=== PATIENT | male | born 1955 | race Caucasian/White ===

== ENCOUNTER 2017-06-22 14:12 | Emergency (ER) | payer OTHER ==
[~2017-06-22] VITALS: Ht 177.8 cm; Wt 70.3 kg
[~2017-06-22 14:12] MED LIST: ACET500 PO; Aspirin EC325 MG PO; BISA10S PO; CRUTCH2 XX; LISINOPRIL; METOPROLOL; Norco 5-325 Ta1 EACH PO; ROXICODONE5 MG PO; Wheelchair1 EACH XX
[2017-06-22 14:54] LABS: Hematocrit 34.4 % (37.0-53.0); Hemoglobin 12.1 g/dL (13.5-17.5); Mean Corpuscular HGB 39.3 pg (26.0-34.0); Mean Corpuscular HGB Conc 35.2 g/dL (31.5-36.5); Mean Corpuscular Volume 112 fL (80-100); Mean Platelet Volume 11.6 fL (9.1-12.4); Platelet Count 58 K/mm3 (150-400); RDW Coefficient Variation 13.4 % (11.7-14.2); RDW Standard Deviation 54.5 fL (35.1-46.3); Red Blood Cell Count 3.08 M/mm3 (4.30-5.90); White Blood Cell Count 8.61 K/mm3 (4.00-11.30)
[2017-06-22 15:06] LABS: Alanine Aminotransfer (ALT/SGP 26 U/L (12-78); Albumin, Blood 3.6 g/dL (3.4-5.0); Albumin/Globulin Ratio 0.9 (0.8-1.8); Alk Phos 152 U/L (50-136); Anion Gap 18 mmol/L (6-16); Aspartate Aminotrans (AST/SGOT 67 U/L (12-37); Bilirubin, Total 2.6 mg/dL (0.1-1.0); Blood Urea Nitrogen 10 mg/dL (8-24); CO2, Blood 23 mmol/L (21-32); Calcium, Blood 7.7 mg/dL (8.5-10.1); Chloride, Blood 93 mmol/L (98-108); Creatinine, Blood 0.63 mg/dL (0.60-1.20); Globulin, Blood 3.9 g/dL (2.2-4.0); Glomerular Filtration Rate >60 (60-); Glucose, Blood 114 mg/dL (70-99); Potassium, Blood 2.4 mmol/L (3.5-5.5); Sodium, Blood 134 mmol/L (136-145); Total Protein, Blood 7.5 g/dL (6.4-8.2)
[2017-06-22 15:28] LABS: BASOPHILS PERCENT MAN 0 % (0-2); EOSINOPHILS PERCENT MAN 0 % (0-6); LYMPHOCYTES ABSOLUTE MAN 1.46 K/mm3 (0.84-5.20); LYMPHOCYTES PERCENT MAN 17 % (21-46); MONOCYTES ABSOLUTE MAN 0.34 K/mm3 (0.16-1.47); MONOCYTES PERCENT MAN 4 % (4-13); SEG NEUTROPHILS PERCENT MAN 79 % (41-73); TOTAL CELLS COUNTED 100
[2017-06-22] MEDS ORDERED: K-Dur20 MEQ PO (16:32)
[2017-06-22] MEDS ORDERED: CHLO25 PO (16:32)
[2018-04-28] MEDS ORDERED: POTCHL20ER PO (00:30)
== END 2017-06-22 18:21 | disposition home or self-care (01) ==
LOC: ER 14:12
PROVIDERS: Emergency Medicine
DX: E87.6 Hypokalemia (principal); I10 Essential (primary) hypertension; F17.200 Nicotine dependence, unspecified, uncomplicated
CPT/HCPCS: 70450; 80053; 85025; 93005; 93010; 96365; 96366; 99284; J3480; J7030

== ENCOUNTER 2017-07-18 22:55 | Inpatient (IN) | payer OTHER ==
[~2017-07-18] VITALS: Ht 177.8 cm; Wt 65.0 kg
[~2017-07-18 22:55] MED LIST changes: +CHLO25 PO; +K-Dur20 MEQ PO
[2017-07-18 23:34] LABS: BASOPHILS ABSOLUTE AUTO 0.03 K/mm3 (0.00-0.23); BASOPHILS PERCENT AUTO 0 % (0-2); Hematocrit 31.2 % (37.0-53.0); Hemoglobin 11.2 g/dL (13.5-17.5); LYMPHOCYTES ABSOLUTE AUTO 0.14 K/mm3 (0.84-5.20); LYMPHOCYTES PERCENT AUTO 1 % (21-46); MONOCYTES ABSOLUTE AUTO 0.61 K/mm3 (0.16-1.47); MONOCYTES PERCENT AUTO 4 % (4-13); Mean Corpuscular HGB 37.7 pg (26.0-34.0); Mean Corpuscular HGB Conc 35.9 g/dL (31.5-36.5); Mean Corpuscular Volume 105 fL (80-100); RDW Coefficient Variation 12.8 % (11.7-14.2); Red Blood Cell Count 2.97 M/mm3 (4.30-5.90); White Blood Cell Count 17.45 K/mm3 (4.00-11.30)
[2017-07-18 23:36] LABS: EOSINOPHILS PERCENT AUTO 0 % (0-6); IMMATURE GRAN ABSOLUTE AUTO 0.26 K/mm3 (0.00-0.10); IMMATURE GRAN PERCENT AUTO 2 % (0-1); NEUTROPHILS ABSOLUTE AUTO 16.41 K/mm3 (1.96-9.15); NEUTROPHILS PERCENT AUTO 94 % (41-73)
[2017-07-18 23:38] LABS: Platelet Count 28 K/mm3 (150-400)
[2017-07-18 23:52] LABS: Alanine Aminotransfer (ALT/SGP 39 U/L (12-78); Albumin, Blood 2.4 g/dL (3.4-5.0); Albumin/Globulin Ratio 0.6 (0.8-1.8); Alk Phos 85 U/L (50-136); Anion Gap 19 mmol/L (6-16); Aspartate Aminotrans (AST/SGOT 168 U/L (12-37); Bilirubin, Total 1.2 mg/dL (0.1-1.0); Blood Urea Nitrogen 37 mg/dL (8-24); Bun/Creatinine Ratio 34.6 (12.0-20.0); CO2, Blood 19 mmol/L (21-32); Calcium, Blood 7.3 mg/dL (8.5-10.1); Chloride, Blood 88 mmol/L (98-108); Creatinine, Blood 1.07 mg/dL (0.60-1.20); Ethanol (Alcohol), Blood, Med <3 mg/dL; Globulin, Blood 4.2 g/dL (2.2-4.0); Glomerular Filtration Rate >60 (60-); Glucose, Blood 122 mg/dL (70-99); Potassium, Blood 2.7 mmol/L (3.5-5.5); Sodium, Blood 126 mmol/L (136-145); Total Protein, Blood 6.6 g/dL (6.4-8.2); Troponin I 0.251 ng/mL (0.000-0.040)
[2017-07-18 23:58] LABS: Influenza A Negative (NEGATIVE); Influenza B Negative (NEGATIVE)
[2017-07-19 00:24] LABS: Magnesium, Blood 0.9 mg/dL (1.6-2.4)
[2017-07-19 00:27] LABS: Creatine Kinase MB 1.6 ng/mL (0.0-3.6); Creatine Kinase MB Index 0.1 (0.0-4.0)
[2017-07-19 00:35] LABS: Source, Urine Catheter
[2017-07-19 00:37] LABS: Appearance, Urine Cloudy (Clear); Bilirubin, Urine Neg (Neg); Blood, Urine 5+ (Neg); Color, Urine Yellow (P-Yellow); Glucose Qualitative, Urine Neg (Neg); Ketones, Urine 3+ (Neg); Leukocyte Esterase, Urine 3+ (Neg); Nitrite, Urine Pos (Neg); Protein, Urine 3+ (Neg); Urobilinogen, Urine NORM (Normal)
[2017-07-19 00:43] LABS: Red Blood Cells, Urine 0-2 /hpf (0-2); White Blood Cells, Urine 25-50 /hpf (0-5)
[2017-07-19 00:44] LABS: Amorphous Light (0-Heavy); Bacteria Many /hpf; Squamous Epithelial Cells Not Seen /hpf (Few)
[2017-07-19 01:03] LABS: U Amphetamine Screen Not Detected; U Barbituate Screen Not Detected; U Benzodiazapine Screen DETECTED; U Buprenorphine Screen Not Detected; U Cannabinoids Screen Not Detected; U Cocaine Screen Not Detected; U Methadone Screen Not Detected; U Methamphetamine Screen Not Detected; U Opiates Screen Not Detected; U Oxycodone Screen Not Detected; U Phencyclidine Screen Not Detected; U Propoxyphene Screen Not Detected
[2017-07-19] MEDS ORDERED: POTCHL20ER PO (02:37)
[2017-07-19 06:45] LABS: BASOPHILS ABSOLUTE AUTO 0.02 K/mm3 (0.00-0.23); BASOPHILS PERCENT AUTO 0 % (0-2); Hematocrit 32.8 % (37.0-53.0); Hemoglobin 11.5 g/dL (13.5-17.5); LYMPHOCYTES ABSOLUTE AUTO 0.14 K/mm3 (0.84-5.20); LYMPHOCYTES PERCENT AUTO 1 % (21-46); MONOCYTES ABSOLUTE AUTO 0.42 K/mm3 (0.16-1.47); MONOCYTES PERCENT AUTO 4 % (4-13); Mean Corpuscular HGB 38.3 pg (26.0-34.0); Mean Corpuscular HGB Conc 35.1 g/dL (31.5-36.5); Mean Platelet Volume 12.7 fL (9.1-12.4); RDW Coefficient Variation 13.1 % (11.7-14.2); RDW Standard Deviation 52.6 fL (35.1-46.3); White Blood Cell Count 11.96 K/mm3 (4.00-11.30)
[2017-07-19 06:48] LABS: Mean Corpuscular Volume 109 fL (80-100)
[2017-07-19 06:49] LABS: EOSINOPHILS PERCENT AUTO 0 % (0-6); IMMATURE GRAN ABSOLUTE AUTO 0.13 K/mm3 (0.00-0.10); IMMATURE GRAN PERCENT AUTO 1 % (0-1); NEUTROPHILS ABSOLUTE AUTO 11.25 K/mm3 (1.96-9.15); NEUTROPHILS PERCENT AUTO 94 % (41-73)
[2017-07-19 06:50] LABS: Platelet Count 22 K/mm3 (150-400)
[2017-07-19 07:09] LABS: BAND PERCENT MAN 12 % (0-8); BASOPHILS PERCENT MAN 0 % (0-2); EOSINOPHILS PERCENT MAN 0 % (0-6); LYMPHOCYTES ABSOLUTE MAN 0.59 K/mm3 (0.84-5.20); LYMPHOCYTES PERCENT MAN 5 % (21-46); MONOCYTES ABSOLUTE MAN 0.23 K/mm3 (0.16-1.47); MONOCYTES PERCENT MAN 2 % (4-13); NEUTROPHILS ABSOLUTE MAN 11.12 K/mm3 (1.96-9.15); SEG NEUTROPHILS PERCENT MAN 81 % (41-73); TOTAL CELLS COUNTED 100
[2017-07-19 07:24] LABS: Alanine Aminotransfer (ALT/SGP 34 U/L (12-78); Albumin, Blood 2.2 g/dL (3.4-5.0); Albumin/Globulin Ratio 0.6 (0.8-1.8); Alk Phos 72 U/L (50-136); Anion Gap 9 mmol/L (6-16); Aspartate Aminotrans (AST/SGOT 141 U/L (12-37); Blood Urea Nitrogen 30 mg/dL (8-24); Bun/Creatinine Ratio 34.8 (12.0-20.0); CO2, Blood 20 mmol/L (21-32); Calcium, Blood 6.8 mg/dL (8.5-10.1); Chloride, Blood 99 mmol/L (98-108); Creatinine, Blood 0.86 mg/dL (0.60-1.20); Globulin, Blood 3.7 g/dL (2.2-4.0); Glomerular Filtration Rate >60 (60-); Glucose, Blood 101 mg/dL (70-99); Sodium, Blood 128 mmol/L (136-145); Total Protein, Blood 5.9 g/dL (6.4-8.2)
[2017-07-19 07:49] LABS: Magnesium, Blood 1.6 mg/dL (1.6-2.4); Phosphorus, Blood 1.5 mg/dL (2.5-4.9)
[2017-07-19 08:04] LABS: Potassium, Blood 6.6 mmol/L (3.5-5.5)
[2017-07-19 18:34] LABS: Hematocrit 25.3 % (37.0-53.0); Hemoglobin 9.3 g/dL (13.5-17.5)
[2017-07-19 18:49] LABS: Free Thyroxine 0.85 ng/dL (0.70-1.60); Magnesium, Blood 1.5 mg/dL (1.6-2.4)
[2017-07-19 18:50] LABS: Thyroid Stimulating Hormone 1.78 uIU/mL (0.360-4.800)
[2017-07-19 18:52] LABS: Phosphorus, Blood 1.7 mg/dL (2.5-4.9); Potassium, Blood 2.5 mmol/L (3.5-5.5)
[2017-07-20 00:32] LABS: Hematocrit 25.7 % (37.0-53.0); Hemoglobin 8.7 g/dL (13.5-17.5)
[2017-07-20 05:03] LABS: Hematocrit 28.7 % (37.0-53.0); Hemoglobin 9.6 g/dL (13.5-17.5); Mean Corpuscular HGB 37.6 pg (26.0-34.0); Mean Corpuscular HGB Conc 33.4 g/dL (31.5-36.5); RDW Coefficient Variation 13.2 % (11.7-14.2); RDW Standard Deviation 54.7 fL (35.1-46.3); Red Blood Cell Count 2.55 M/mm3 (4.30-5.90); White Blood Cell Count 4.96 K/mm3 (4.00-11.30)
[2017-07-20 05:07] LABS: PCO2 Arterial 29.3 mmHg (35-45); PO2 Arterial 85.3 mmHg (80-100); pH Blood Arterial 7.38 (7.35-7.45)
[2017-07-20 05:09] LABS: Mean Corpuscular Volume 113 fL (80-100); Mean Platelet Volume 13.8 fL (9.1-12.4)
[2017-07-20 05:11] LABS: Platelet Count 15 K/mm3 (150-400)
[2017-07-20 05:16] LABS: International Normalized Ratio 1.29; Prothrombin Time Results 13.5 Sec (9.7-11.5)
[2017-07-20 05:24] LABS: Alanine Aminotransfer (ALT/SGP 35 U/L (12-78); Albumin, Blood 1.5 g/dL (3.4-5.0); Albumin/Globulin Ratio 0.5 (0.8-1.8); Anion Gap 10 mmol/L (6-16); Aspartate Aminotrans (AST/SGOT 130 U/L (12-37); Bilirubin, Total 0.8 mg/dL (0.1-1.0); Blood Urea Nitrogen 24 mg/dL (8-24); Bun/Creatinine Ratio 31.6 (12.0-20.0); CO2, Blood 19 mmol/L (21-32); Calcium, Blood 6.5 mg/dL (8.5-10.1); Chloride, Blood 106 mmol/L (98-108); Creatinine, Blood 0.76 mg/dL (0.60-1.20); Globulin, Blood 3.3 g/dL (2.2-4.0); Glomerular Filtration Rate >60 (60-); Glucose, Blood 108 mg/dL (70-99); Magnesium, Blood 1.8 mg/dL (1.6-2.4); Phosphorus, Blood 2.5 mg/dL (2.5-4.9); Potassium, Blood 2.7 mmol/L (3.5-5.5); Sodium, Blood 135 mmol/L (136-145); Total Protein, Blood 4.8 g/dL (6.4-8.2)
[2017-07-20 05:26] LABS: Alk Phos 52 U/L (50-136); CPK Creatine Kinase 430 U/L (39-308)
[2017-07-20 05:40] LABS: BAND PERCENT MAN 14 % (0-8); BASOPHILS PERCENT MAN 0 % (0-2); EOSINOPHILS PERCENT MAN 0 % (0-6); LYMPHOCYTES ABSOLUTE MAN 0.14 K/mm3 (0.84-5.20); LYMPHOCYTES PERCENT MAN 3 % (21-46); MONOCYTES ABSOLUTE MAN 0.19 K/mm3 (0.16-1.47); MONOCYTES PERCENT MAN 4 % (4-13); NEUTROPHILS ABSOLUTE MAN 4.61 K/mm3 (1.96-9.15); SEG NEUTROPHILS PERCENT MAN 79 % (41-73); TOTAL CELLS COUNTED 100
[2017-07-20 06:07] LABS: Stool Occult Blood Guaiac 1 Pos (Neg)
[2017-07-21 04:20] LABS: BASOPHILS PERCENT AUTO 0 % (0-2); Hematocrit 29.2 % (37.0-53.0); Hemoglobin 10.1 g/dL (13.5-17.5); Mean Corpuscular HGB 38.1 pg (26.0-34.0); Mean Corpuscular HGB Conc 34.6 g/dL (31.5-36.5); RDW Coefficient Variation 13.2 % (11.7-14.2); Red Blood Cell Count 2.65 M/mm3 (4.30-5.90); White Blood Cell Count 3.92 K/mm3 (4.00-11.30)
[2017-07-21 04:27] LABS: EOSINOPHILS PERCENT AUTO 0 % (0-6); IMMATURE GRAN ABSOLUTE AUTO 0.04 K/mm3 (0.00-0.10); IMMATURE GRAN PERCENT AUTO 1 % (0-1); LYMPHOCYTES ABSOLUTE AUTO 0.13 K/mm3 (0.84-5.20); LYMPHOCYTES PERCENT AUTO 3 % (21-46); MONOCYTES ABSOLUTE AUTO 0.38 K/mm3 (0.16-1.47); MONOCYTES PERCENT AUTO 10 % (4-13); Mean Corpuscular Volume 110 fL (80-100); Mean Platelet Volume 13.1 fL (9.1-12.4); NEUTROPHILS ABSOLUTE AUTO 3.37 K/mm3 (1.96-9.15); NEUTROPHILS PERCENT AUTO 86 % (41-73); Platelet Count 18 K/mm3 (150-400)
[2017-07-21 04:45] LABS: Alanine Aminotransfer (ALT/SGP 41 U/L (12-78); Albumin, Blood 1.8 g/dL (3.4-5.0); Albumin/Globulin Ratio 0.5 (0.8-1.8); Alk Phos 68 U/L (50-136); Anion Gap 10 mmol/L (6-16); Aspartate Aminotrans (AST/SGOT 103 U/L (12-37); Bilirubin, Total 1.3 mg/dL (0.1-1.0); Blood Urea Nitrogen 18 mg/dL (8-24); Bun/Creatinine Ratio 19.8 (12.0-20.0); CO2, Blood 19 mmol/L (21-32); Calcium, Blood 7.4 mg/dL (8.5-10.1); Chloride, Blood 108 mmol/L (98-108); Creatinine, Blood 0.91 mg/dL (0.60-1.20); Globulin, Blood 3.7 g/dL (2.2-4.0); Glomerular Filtration Rate >60 (60-); Glucose, Blood 91 mg/dL (70-99); Magnesium, Blood 1.5 mg/dL (1.6-2.4); Phosphorus, Blood 1.2 mg/dL (2.5-4.9); Potassium, Blood 2.9 mmol/L (3.5-5.5); Sodium, Blood 137 mmol/L (136-145); Total Protein, Blood 5.5 g/dL (6.4-8.2)
[2017-07-21 10:51] LABS: Anion Gap 11 mmol/L (6-16); Blood Urea Nitrogen 19 mg/dL (8-24); Bun/Creatinine Ratio 23.5 (12.0-20.0); CO2, Blood 18 mmol/L (21-32); Calcium, Blood 7.5 mg/dL (8.5-10.1); Chloride, Blood 109 mmol/L (98-108); Creatinine, Blood 0.81 mg/dL (0.60-1.20); Glomerular Filtration Rate >60 (60-); Glucose, Blood 84 mg/dL (70-99); Magnesium, Blood 1.7 mg/dL (1.6-2.4); Phosphorus, Blood 2.2 mg/dL (2.5-4.9); Potassium, Blood 3.3 mmol/L (3.5-5.5); Sodium, Blood 138 mmol/L (136-145)
[2017-07-21 21:49] LABS: Albumin, Blood 1.7 g/dL (3.4-5.0); Anion Gap 12 mmol/L (6-16); Blood Urea Nitrogen 18 mg/dL (8-24); Bun/Creatinine Ratio 19.1 (12.0-20.0); CO2, Blood 20 mmol/L (21-32); Calcium, Blood 7.2 mg/dL (8.5-10.1); Chloride, Blood 110 mmol/L (98-108); Creatinine, Blood 0.94 mg/dL (0.60-1.20); Glomerular Filtration Rate >60 (60-); Glucose, Blood 113 mg/dL (70-99); Magnesium, Blood 1.4 mg/dL (1.6-2.4); Phosphorus, Blood 3.7 mg/dL (2.5-4.9); Sodium, Blood 142 mmol/L (136-145)
[2017-07-22 05:42] LABS: Hematocrit 27.1 % (37.0-53.0); Hemoglobin 9.5 g/dL (13.5-17.5); Mean Corpuscular HGB Conc 35.1 g/dL (31.5-36.5); Mean Corpuscular Volume 108 fL (80-100); RDW Coefficient Variation 13.5 % (11.7-14.2); RDW Standard Deviation 54.1 fL (35.1-46.3); White Blood Cell Count 4.74 K/mm3 (4.00-11.30)
[2017-07-22 05:54] LABS: Mean Platelet Volume 13.2 fL (9.1-12.4); Platelet Count 28 K/mm3 (150-400)
[2017-07-22 06:00] LABS: Anion Gap 10 mmol/L (6-16); Blood Urea Nitrogen 19 mg/dL (8-24); Bun/Creatinine Ratio 21.6 (12.0-20.0); CO2, Blood 19 mmol/L (21-32); Calcium, Blood 7.4 mg/dL (8.5-10.1); Chloride, Blood 112 mmol/L (98-108); Creatinine, Blood 0.88 mg/dL (0.60-1.20); Glomerular Filtration Rate >60 (60-); Glucose, Blood 126 mg/dL (70-99); Magnesium, Blood 2.4 mg/dL (1.6-2.4); Phosphorus, Blood 2.3 mg/dL (2.5-4.9); Sodium, Blood 141 mmol/L (136-145)
[2017-07-22 18:11] LABS: Albumin, Blood 1.8 g/dL (3.4-5.0); Anion Gap 13 mmol/L (6-16); Blood Urea Nitrogen 17 mg/dL (8-24); Bun/Creatinine Ratio 18.9 (12.0-20.0); CO2, Blood 18 mmol/L (21-32); Calcium, Blood 7.5 mg/dL (8.5-10.1); Chloride, Blood 114 mmol/L (98-108); Glomerular Filtration Rate >60 (60-); Glucose, Blood 113 mg/dL (70-99); Magnesium, Blood 1.9 mg/dL (1.6-2.4); Phosphorus, Blood 3.5 mg/dL (2.5-4.9); Potassium, Blood 3.2 mmol/L (3.5-5.5); Sodium, Blood 145 mmol/L (136-145)
[2017-07-23 04:34] LABS: Hematocrit 25.8 % (37.0-53.0); Hemoglobin 8.8 g/dL (13.5-17.5); Mean Corpuscular HGB 37.4 pg (26.0-34.0); Mean Corpuscular HGB Conc 34.1 g/dL (31.5-36.5); Mean Corpuscular Volume 110 fL (80-100); Mean Platelet Volume 12.2 fL (9.1-12.4); RDW Coefficient Variation 14.3 % (11.7-14.2); RDW Standard Deviation 57.8 fL (35.1-46.3); Red Blood Cell Count 2.35 M/mm3 (4.30-5.90); White Blood Cell Count 5.18 K/mm3 (4.00-11.30)
[2017-07-23 04:45] LABS: Albumin, Blood 1.8 g/dL (3.4-5.0); Anion Gap 10 mmol/L (6-16); Blood Urea Nitrogen 15 mg/dL (8-24); Bun/Creatinine Ratio 18.7 (12.0-20.0); CO2, Blood 21 mmol/L (21-32); Calcium, Blood 7.3 mg/dL (8.5-10.1); Chloride, Blood 116 mmol/L (98-108); Glomerular Filtration Rate >60 (60-); Glucose, Blood 102 mg/dL (70-99); Phosphorus, Blood 2.7 mg/dL (2.5-4.9); Potassium, Blood 3.5 mmol/L (3.5-5.5); Sodium, Blood 147 mmol/L (136-145)
[2017-07-23 04:59] LABS: Platelet Count 42 K/mm3 (150-400)
[2017-07-24 04:22] LABS: Hematocrit 24.3 % (37.0-53.0); Hemoglobin 8.3 g/dL (13.5-17.5)
[2017-07-24 04:43] LABS: Anion Gap 9 mmol/L (6-16); Blood Urea Nitrogen 11 mg/dL (8-24); CO2, Blood 23 mmol/L (21-32); Calcium, Blood 7.1 mg/dL (8.5-10.1); Chloride, Blood 115 mmol/L (98-108); Creatinine, Blood 0.79 mg/dL (0.60-1.20); Glomerular Filtration Rate >60 (60-); Glucose, Blood 103 mg/dL (70-99); Potassium, Blood 2.9 mmol/L (3.5-5.5); Sodium, Blood 147 mmol/L (136-145)
[2017-07-25 04:49] LABS: Hematocrit 26.4 % (37.0-53.0); Hemoglobin 8.9 g/dL (13.5-17.5)
[2017-07-25 05:17] LABS: Anion Gap 7 mmol/L (6-16); Blood Urea Nitrogen 10 mg/dL (8-24); Bun/Creatinine Ratio 14.3 (12.0-20.0); CO2, Blood 25 mmol/L (21-32); Calcium, Blood 7.3 mg/dL (8.5-10.1); Chloride, Blood 113 mmol/L (98-108); Glomerular Filtration Rate >60 (60-); Glucose, Blood 167 mg/dL (70-99); Potassium, Blood 2.9 mmol/L (3.5-5.5); Sodium, Blood 145 mmol/L (136-145)
[2017-07-26 04:02] LABS: Hematocrit 22.5 % (37.0-53.0); Hemoglobin 7.6 g/dL (13.5-17.5); Mean Corpuscular HGB 37.8 pg (26.0-34.0); Mean Corpuscular HGB Conc 33.8 g/dL (31.5-36.5); Mean Corpuscular Volume 112 fL (80-100); Mean Platelet Volume 11.3 fL (9.1-12.4); Platelet Count 89 K/mm3 (150-400); RDW Coefficient Variation 14.3 % (11.7-14.2); RDW Standard Deviation 58.1 fL (35.1-46.3); Red Blood Cell Count 2.01 M/mm3 (4.30-5.90); White Blood Cell Count 9.68 K/mm3 (4.00-11.30)
[2017-07-26 04:22] LABS: Albumin, Blood 1.7 g/dL (3.4-5.0); Anion Gap 6 mmol/L (6-16); Blood Urea Nitrogen 10 mg/dL (8-24); Bun/Creatinine Ratio 15.4 (12.0-20.0); CO2, Blood 25 mmol/L (21-32); Calcium, Blood 6.5 mg/dL (8.5-10.1); Chloride, Blood 108 mmol/L (98-108); Creatinine, Blood 0.65 mg/dL (0.60-1.20); Glomerular Filtration Rate >60 (60-); Glucose, Blood 109 mg/dL (70-99); Phosphorus, Blood 1.9 mg/dL (2.5-4.9); Potassium, Blood 2.9 mmol/L (3.5-5.5); Sodium, Blood 139 mmol/L (136-145)
[2017-07-26 09:39] LABS: Hematocrit 22.6 % (37.0-53.0); Hemoglobin 7.7 g/dL (13.5-17.5); Mean Corpuscular HGB 37.7 pg (26.0-34.0); Mean Corpuscular HGB Conc 34.1 g/dL (31.5-36.5); Mean Corpuscular Volume 111 fL (80-100); Mean Platelet Volume 11.5 fL (9.1-12.4); Platelet Count 90 K/mm3 (150-400); RDW Coefficient Variation 14.4 % (11.7-14.2); RDW Standard Deviation 58.5 fL (35.1-46.3); Red Blood Cell Count 2.04 M/mm3 (4.30-5.90); White Blood Cell Count 10.02 K/mm3 (4.00-11.30)
[2017-07-27 04:15] LABS: Hematocrit 22.3 % (37.0-53.0); Hemoglobin 7.6 g/dL (13.5-17.5); Mean Corpuscular HGB 37.8 pg (26.0-34.0); Mean Corpuscular HGB Conc 34.1 g/dL (31.5-36.5); Mean Corpuscular Volume 111 fL (80-100); Platelet Count 101 K/mm3 (150-400); RDW Standard Deviation 57.4 fL (35.1-46.3); Red Blood Cell Count 2.01 M/mm3 (4.30-5.90)
[2017-07-27 04:35] LABS: Anion Gap 8 mmol/L (6-16); Blood Urea Nitrogen 8 mg/dL (8-24); Bun/Creatinine Ratio 12.1 (12.0-20.0); CO2, Blood 24 mmol/L (21-32); Calcium, Blood 6.5 mg/dL (8.5-10.1); Chloride, Blood 106 mmol/L (98-108); Creatinine, Blood 0.66 mg/dL (0.60-1.20); Glomerular Filtration Rate >60 (60-); Glucose, Blood 93 mg/dL (70-99); Magnesium, Blood 1.2 mg/dL (1.6-2.4); Sodium, Blood 138 mmol/L (136-145)
[2017-07-28 04:30] LABS: Hematocrit 20.6 % (37.0-53.0); Hemoglobin 7.2 g/dL (13.5-17.5); Mean Corpuscular HGB 38.1 pg (26.0-34.0); Mean Corpuscular Volume 109 fL (80-100); Mean Platelet Volume 11.8 fL (9.1-12.4); Platelet Count 89 K/mm3 (150-400); RDW Coefficient Variation 13.7 % (11.7-14.2); RDW Standard Deviation 54.5 fL (35.1-46.3); Red Blood Cell Count 1.89 M/mm3 (4.30-5.90); White Blood Cell Count 11.19 K/mm3 (4.00-11.30)
[2017-07-28 04:48] LABS: Anion Gap 8 mmol/L (6-16); Blood Urea Nitrogen 6 mg/dL (8-24); Bun/Creatinine Ratio 8.7 (12.0-20.0); CO2, Blood 24 mmol/L (21-32); Calcium, Blood 6.6 mg/dL (8.5-10.1); Chloride, Blood 104 mmol/L (98-108); Creatinine, Blood 0.69 mg/dL (0.60-1.20); Glomerular Filtration Rate >60 (60-); Glucose, Blood 114 mg/dL (70-99); Potassium, Blood 3.1 mmol/L (3.5-5.5); Sodium, Blood 136 mmol/L (136-145)
[2018-04-28] MEDS ORDERED: POTCHL20ER PO (00:30)
== END 2017-07-28 11:30 | DRG 871 ==
LOC: ER 22:55 → ICUE 07-19 00:06 → PCU 07-19 00:06 → ICUW 07-19 00:06 → ICUE 07-19 01:35 → PCU 07-22 18:04
PROVIDERS: Emergency Medicine; Family Medicine; Internal Medicine; Internal Medicine Critical Care Medicine
PROC: 3E0234Z Introduction of Serum, Toxoid and Vaccine into Muscle, Percutaneous Approach (ICD-10-PCS; principal; 2017-07-19)
DX: A41.51 Sepsis due to Escherichia coli [E. coli] (principal); R65.21 Severe sepsis with septic shock; G93.41 Metabolic encephalopathy; E87.2 Acidosis; E44.0 Moderate protein-calorie malnutrition; E83.39 Other disorders of phosphorus metabolism; D62 Acute posthemorrhagic anemia; D69.6 Thrombocytopenia, unspecified; M62.82 Rhabdomyolysis; E87.1 Hypo-osmolality and hyponatremia; N39.0 Urinary tract infection, site not specified; F10.239 Alcohol dependence with withdrawal, unspecified; Z23 Encounter for immunization; E83.42 Hypomagnesemia; E87.6 Hypokalemia; R77.8 Other specified abnormalities of plasma proteins; F17.210 Nicotine dependence, cigarettes, uncomplicated; I10 Essential (primary) hypertension; E86.0 Dehydration; R19.5 Other fecal abnormalities; Z68.20 Body mass index [BMI] 20.0-20.9, adult
CPT/HCPCS: 36415; 36600; 51702; 71045; 80048; 80053; 80069; 81001; 82140; 82272; 82330; 82533; 82550; 82553; 82803; 83605; 83690; 83735; 84100; 84132; 84145; 84439; 84443; 84484; 85007; 85014; 85018; 85025; 85027; 85610; 85730; 87040; 87077; 87086; 87186; 87493; 87804; 92526; 92610; 93005; 93010; 93306; 94640; 94760; 96361; 96365; 97110; 97161; 97166; 97530; 97535; 99285; C9113; G0480; G8978; G8979; G8987; G8988; G8996; G8997; J0610; J0696; J1940; J1956; J2001; J2060; J2543; J3411; J3475; J3480; J7030; J7040; J7042; J7050; Q2038

== ENCOUNTER 2018-08-04 08:30 | Inpatient (IN) | payer OTHER ==
[~2018-08-04] VITALS: Ht 180.3 cm; Wt 54.4 kg
[~2018-08-04 08:30] MED LIST changes: +POTCHL20ER PO
[2018-08-04 09:20] LABS: BASOPHILS ABSOLUTE AUTO 0.01 K/mm3 (0.00-0.23); BASOPHILS PERCENT AUTO 0 % (0-2); EOSINOPHILS ABSOLUTE AUTO 0.01 K/mm3 (0.00-0.68); EOSINOPHILS PERCENT AUTO 0 % (0-6); Hematocrit 25.9 % (37.0-53.0); Hemoglobin 9.2 g/dL (13.5-17.5); IMMATURE GRAN ABSOLUTE AUTO 0.06 K/mm3 (0.00-0.10); IMMATURE GRAN PERCENT AUTO 1 % (0-1); LYMPHOCYTES ABSOLUTE AUTO 0.81 K/mm3 (0.84-5.20); LYMPHOCYTES PERCENT AUTO 9 % (21-46); MONOCYTES ABSOLUTE AUTO 0.62 K/mm3 (0.16-1.47); MONOCYTES PERCENT AUTO 7 % (4-13); Mean Corpuscular HGB 39.8 pg (26.0-34.0); Mean Corpuscular HGB Conc 35.5 g/dL (31.5-36.5); Mean Corpuscular Volume 112 fL (80-100); Mean Platelet Volume 11.8 fL (9.1-12.4); NEUTROPHILS ABSOLUTE AUTO 7.21 K/mm3 (1.96-9.15); NEUTROPHILS PERCENT AUTO 83 % (41-73); Platelet Count 63 K/mm3 (150-400); RDW Coefficient Variation 13.7 % (11.7-14.2); RDW Standard Deviation 56.6 fL (35.1-46.3); Red Blood Cell Count 2.31 M/mm3 (4.30-5.90); White Blood Cell Count 8.72 K/mm3 (4.00-11.30)
[2018-08-04 09:54] LABS: Alanine Aminotransfer (ALT/SGP 23 U/L (12-78); Albumin, Blood 2.7 g/dL (3.4-5.0); Albumin/Globulin Ratio 0.7 (0.8-1.8); Alk Phos 87 U/L (50-136); Anion Gap 13 mmol/L (6-16); Aspartate Aminotrans (AST/SGOT 47 U/L (12-37); Bilirubin, Total 4.1 mg/dL (0.1-1.0); Blood Urea Nitrogen 15 mg/dL (8-24); Bun/Creatinine Ratio 22.6 (12.0-20.0); CO2, Blood 32 mmol/L (21-32); Calcium, Blood 6.2 mg/dL (8.5-10.1); Chloride, Blood 83 mmol/L (98-108); Creatinine, Blood 0.66 mg/dL (0.60-1.20); Ethanol (Alcohol), Blood, Med <3 mg/dL; Glomerular Filtration Rate >60 (60-); Glucose, Blood 80 mg/dL (70-99); Potassium, Blood 2.5 mmol/L (3.5-5.5); Sodium, Blood 128 mmol/L (136-145); Total Protein, Blood 6.7 g/dL (6.4-8.2); Troponin I <0.015 ng/mL (0.000-0.040)
[2018-08-04 11:01] LABS: Free Thyroxine 1.26 ng/dL (0.70-1.60)
[2018-08-04 11:03] LABS: Thyroid Stimulating Hormone 1.53 uIU/mL (0.360-4.800)
[2018-08-04 11:07] LABS: Magnesium, Blood 0.5 mg/dL (1.6-2.4)
[2018-08-04 12:07] LABS: IMMATURE RETIC FRACTION 18.7 % (2.3-16.0); RETIC HGB EQUIVALENT 42.1 pg (28.20-36.60); RETICULOCYTE ABSOLUTE 0.0608 M/mm3 (0.0200-0.1100); RETICULOCYTE COUNT PERCENT 2.69 % (0.50-2.50)
[2018-08-04 12:19] LABS: Percent Saturation 99.3 % (20.0-50.0)
[2018-08-04 18:34] LABS: Source, Urine Voided
[2018-08-04 18:51] LABS: Appearance, Urine Hazy (Clear); Blood, Urine 1+ (Neg); Color, Urine Amber (P-Yellow); Glucose Qualitative, Urine Neg (Neg); Ketones, Urine 2+ (Neg); Leukocyte Esterase, Urine 2+ (Neg); Nitrite, Urine Pos (Neg); Protein, Urine 2+ (Neg); Urobilinogen, Urine 4+ (Normal)
--- NOTE | 2018-08-04 19:40 | NUR ---
PT HAD NOT HAD IV POTASSIUM AND IV MAGNESIUM STARTED THAT WERE ORDERED TO START AT 1550. MEDICATIONS HAD BEEN SENT DOWN TO THE ED AND PT ARRIVED TO MEDICAL FLOOR AT 1740. SECOND IV STARTED SO BOTH MAGNESIUM AND POTASSIUM COULD RUN. ADDITIONALLY, IV FLUIDS NS W/ 20 K ORDERED TO START AT 1155 NOT STARTED DOWN IN THE EMERGENCY DEPARTMENT. SPOKE WITH PHARMACY WHO RECOMMENDED NOT STARTING THE FLUIDS UNTIL K RIDERS WERE COMPLETE YOU CANNOT RUN MORE THAN 10 MEQ/HR OF POTASSIUM. HELD FIRST DOSE OF NS W/ 20 KCL, STARTED FIRST K RIDER AND MAG RIDER.
[2018-08-04 20:29] LABS: Bilirubin, Urine 2+ (Neg)
[2018-08-04 20:30] LABS: Squamous Epithelial Cells Rare /hpf (Few)
[2018-08-04 20:31] LABS: Bacteria Mod /hpf
[2018-08-05 04:47] LABS: BASOPHILS ABSOLUTE AUTO 0.02 K/mm3 (0.00-0.23); BASOPHILS PERCENT AUTO 0 % (0-2); EOSINOPHILS ABSOLUTE AUTO 0.02 K/mm3 (0.00-0.68); EOSINOPHILS PERCENT AUTO 0 % (0-6); Hematocrit 22.7 % (37.0-53.0); Hemoglobin 7.9 g/dL (13.5-17.5); IMMATURE GRAN ABSOLUTE AUTO 0.13 K/mm3 (0.00-0.10); IMMATURE GRAN PERCENT AUTO 1 % (0-1); LYMPHOCYTES ABSOLUTE AUTO 0.68 K/mm3 (0.84-5.20); LYMPHOCYTES PERCENT AUTO 7 % (21-46); MONOCYTES ABSOLUTE AUTO 0.63 K/mm3 (0.16-1.47); MONOCYTES PERCENT AUTO 6 % (4-13); Mean Corpuscular HGB 40.5 pg (26.0-34.0); Mean Corpuscular HGB Conc 34.8 g/dL (31.5-36.5); Mean Platelet Volume 12.5 fL (9.1-12.4); NEUTROPHILS ABSOLUTE AUTO 8.43 K/mm3 (1.96-9.15); NEUTROPHILS PERCENT AUTO 85 % (41-73); RDW Coefficient Variation 13.8 % (11.7-14.2); Red Blood Cell Count 1.95 M/mm3 (4.30-5.90); White Blood Cell Count 9.91 K/mm3 (4.00-11.30)
[2018-08-05 05:02] LABS: Anion Gap 9 mmol/L (6-16); Blood Urea Nitrogen 13 mg/dL (8-24); Bun/Creatinine Ratio 22.1 (12.0-20.0); CO2, Blood 28 mmol/L (21-32); Calcium, Blood 6.1 mg/dL (8.5-10.1); Chloride, Blood 92 mmol/L (98-108); Creatinine, Blood 0.59 mg/dL (0.60-1.20); Glomerular Filtration Rate >60 (60-); Glucose, Blood 163 mg/dL (70-99); Magnesium, Blood 1.5 mg/dL (1.6-2.4); Potassium, Blood 3.3 mmol/L (3.5-5.5); Sodium, Blood 129 mmol/L (136-145)
[2018-08-05 05:21] LABS: Mean Corpuscular Volume 116 fL (80-100)
[2018-08-05 05:22] LABS: Platelet Count 49 K/mm3 (150-400)
--- NOTE | 2018-08-05 06:19 | NUR ---
SHIFT SUMMARY PT TIRED THIS EVENING. COOPERATIVE WITH CARE BUT IRRITATED W/ STAFF BOTHERING HIM. 3 BAGS OF 20 MEQ IV POTASSIUM AND 1 BAG OF 2 G IV MAGNESIUM GIVEN THROUGHOUT THE NIGHT. AFTER COMPLETION IV FLUIDS NS W/ 20 OF KCL STARTED AT 100 ML/HR. PT ANSWERS QUESTIONS APPROPRIATELY BUT WAS UNABLE TO TELL WHEN BRIEF WAS DIRTY. WHEN ASKED PT WOULD SAY, "I DON'T THINK SO" BUT WHEN CHECKED PT'S ATTENDS WET AND SOILED. PT HAD LOOSE STOOL. FULLY SOAKED IN TO ATTENDS SO WAS UNABLE TO OBTAIN A STOOL SAMPLE. PERIANAL AREA VERY EXCORIATED, PAINFUL W/ WIPING. BARRIER CREAM APPLIED. PICTURES IN CHART. PT DENIED NAUSEA THIS EVENING. ATE SANDWICH AND CRACKERS AND TOLERATED WELL. TELEMETRY ON READING SINUS TACH W/ PAC'S 103-116. VSS. WILL CONTINUE TO MONITOR.
--- NOTE | 2018-08-05 18:35 | NUR ---
SHIFT SUMMARY PT HAS HAD NO ACUTE CHANGES THIS SHIFT, INCONT DIARRHEA CONTINUAL T/O SHIFT, PT IS BEDRESTING AT THIS TIME, WILL CONT TO MONITOR UNTIL REPORT GIVEN TO OANH RN.
[2018-08-06 04:54] LABS: BASOPHILS ABSOLUTE AUTO 0.02 K/mm3 (0.00-0.23); BASOPHILS PERCENT AUTO 0 % (0-2); EOSINOPHILS ABSOLUTE AUTO 0.02 K/mm3 (0.00-0.68); EOSINOPHILS PERCENT AUTO 0 % (0-6); Hematocrit 21.3 % (37.0-53.0); Hemoglobin 7.3 g/dL (13.5-17.5); IMMATURE GRAN ABSOLUTE AUTO 0.03 K/mm3 (0.00-0.10); IMMATURE GRAN PERCENT AUTO 0 % (0-1); LYMPHOCYTES ABSOLUTE AUTO 0.86 K/mm3 (0.84-5.20); LYMPHOCYTES PERCENT AUTO 11 % (21-46); MONOCYTES ABSOLUTE AUTO 0.74 K/mm3 (0.16-1.47); MONOCYTES PERCENT AUTO 10 % (4-13); Mean Corpuscular HGB 40.6 pg (26.0-34.0); Mean Corpuscular HGB Conc 34.3 g/dL (31.5-36.5); Mean Corpuscular Volume 118 fL (80-100); Mean Platelet Volume 12.5 fL (9.1-12.4); NEUTROPHILS ABSOLUTE AUTO 6.02 K/mm3 (1.96-9.15); NEUTROPHILS PERCENT AUTO 78 % (41-73); Platelet Count 51 K/mm3 (150-400); RDW Coefficient Variation 13.8 % (11.7-14.2); RDW Standard Deviation 59.8 fL (35.1-46.3); White Blood Cell Count 7.69 K/mm3 (4.00-11.30)
[2018-08-06 05:16] LABS: Albumin, Blood 2.4 g/dL (3.4-5.0); Anion Gap 9 mmol/L (6-16); Blood Urea Nitrogen 8 mg/dL (8-24); Bun/Creatinine Ratio 16.6 (12.0-20.0); CO2, Blood 24 mmol/L (21-32); Calcium, Blood 6.6 mg/dL (8.5-10.1); Chloride, Blood 98 mmol/L (98-108); Creatinine, Blood 0.48 mg/dL (0.60-1.20); Glomerular Filtration Rate >60 (60-); Glucose, Blood 91 mg/dL (70-99); Magnesium, Blood 1.3 mg/dL (1.6-2.4); Potassium, Blood 3.7 mmol/L (3.5-5.5); Sodium, Blood 131 mmol/L (136-145)
[2018-08-06 05:24] LABS: Phosphorus, Blood 0.5 mg/dL (2.5-4.9)
--- NOTE | 2018-08-06 12:47 | NUR ---
PATIENT DID NOT EAT LUNCH WHEN TRAY WAS BROUGHT IN. TRAY WAS OFFERED AND PATIENT DECLINED. PATIENT WANTED TO REST. I OFFERED TO HELP APTIENT AND HE DECLINED. RN NOTIFIED. I LET PATIENT KNOW TO LET ME KNOW WHEN HE GETS HUNGRY AND I WILL GET HIM SOMETHING TO EAT.
[2018-08-06 14:59] LABS: Albumin, Blood 2.6 g/dL (3.4-5.0); Anion Gap 7 mmol/L (6-16); Blood Urea Nitrogen 7 mg/dL (8-24); Bun/Creatinine Ratio 14.5 (12.0-20.0); CO2, Blood 26 mmol/L (21-32); Calcium, Blood 6.7 mg/dL (8.5-10.1); Chloride, Blood 98 mmol/L (98-108); Creatinine, Blood 0.48 mg/dL (0.60-1.20); Glomerular Filtration Rate >60 (60-); Glucose, Blood 119 mg/dL (70-99); Magnesium, Blood 1.8 mg/dL (1.6-2.4); Phosphorus, Blood 2.6 mg/dL (2.5-4.9); Sodium, Blood 131 mmol/L (136-145)
--- NOTE | 2018-08-06 16:20 | NUR ---
SUMMARY THIS AM PT SITTING UP IN BED ABLE TO STATE NAME, DATE, DESCRIBE REASON FOR HOSP, NO VISIBLE TREMOR HOWEVER CAN BE FELT. MILD ANXIETY, STATE THAT HE SAW A DOG ON HIS BED, @ X'S REACHING FOR SOMETHING THAT IS NOT THERE, HR TACHY 90-110. PT BECOME CONFUSED, PULL OUT IV. CIWA 4-9, HAVE GIVEN ATIVAN 1MG X2 FOR SYMPTOMS, PT HAS SLEPT THIS AFTERNOON. H&H LOW THIS AM, 7.3/21.3, DR LEE ORDER 1 UNIT PRBC. PHOS CL 0.5, MG LOW 1.3, ORDER IV SUPPLEMENTS, LABS IMPROVED THIS AFTERNOON. WBC WNL. PT APPEARS VERY WEAK/FATIGUED/FRAIL. NO STATED PAIN.
--- NOTE | 2018-08-06 18:10 | NUR ---
PATIENT DID NOT EAT DINNER THIS SHIFT DUE TO BEING NOT AWAKE ENOUGH TO EAT. RN NOTIFIED.
[2018-08-07 04:09] LABS: Stool Occult Blood Guaiac 1 Neg (Neg)
[2018-08-07 04:56] LABS: BASOPHILS ABSOLUTE AUTO 0.02 K/mm3 (0.00-0.23); BASOPHILS PERCENT AUTO 0 % (0-2); EOSINOPHILS ABSOLUTE AUTO 0.03 K/mm3 (0.00-0.68); EOSINOPHILS PERCENT AUTO 0 % (0-6); Hematocrit 29.9 % (37.0-53.0); IMMATURE GRAN ABSOLUTE AUTO 0.06 K/mm3 (0.00-0.10); IMMATURE GRAN PERCENT AUTO 1 % (0-1); LYMPHOCYTES ABSOLUTE AUTO 0.82 K/mm3 (0.84-5.20); LYMPHOCYTES PERCENT AUTO 8 % (21-46); MONOCYTES ABSOLUTE AUTO 1.14 K/mm3 (0.16-1.47); MONOCYTES PERCENT AUTO 11 % (4-13); Mean Corpuscular HGB Conc 33.4 g/dL (31.5-36.5); Mean Platelet Volume 11.5 fL (9.1-12.4); NEUTROPHILS ABSOLUTE AUTO 8.23 K/mm3 (1.96-9.15); NEUTROPHILS PERCENT AUTO 80 % (41-73); Platelet Count 86 K/mm3 (150-400); RDW Standard Deviation 82.4 fL (35.1-46.3); Red Blood Cell Count 2.63 M/mm3 (4.30-5.90)
[2018-08-07 05:24] LABS: Mean Corpuscular Volume 114 fL (80-100)
[2018-08-07 05:27] LABS: Albumin, Blood 2.6 g/dL (3.4-5.0); Anion Gap 9 mmol/L (6-16); Blood Urea Nitrogen 9 mg/dL (8-24); Bun/Creatinine Ratio 17.7 (12.0-20.0); CO2, Blood 22 mmol/L (21-32); Calcium, Blood 6.8 mg/dL (8.5-10.1); Chloride, Blood 101 mmol/L (98-108); Creatinine, Blood 0.51 mg/dL (0.60-1.20); Glomerular Filtration Rate >60 (60-); Glucose, Blood 105 mg/dL (70-99); Magnesium, Blood 1.3 mg/dL (1.6-2.4); Phosphorus, Blood 1.9 mg/dL (2.5-4.9); Potassium, Blood 4.6 mmol/L (3.5-5.5); Sodium, Blood 132 mmol/L (136-145)
--- NOTE | 2018-08-07 06:22 | NUR ---
SHIFT SUMMARY PT VERY SLEEPY THIS EVENING. SLEPT THROUGH THE ENTIRE NIGHT WHEN NOT BEING WOKEN BY STAFF. LOOSE STOOL REMAINS BUT CONTINUES TO LESSEN EACH SHIFT. STOOL SENT AND GUIAC NEGATIVE. PT DISGRUNTLED WITH CARE. REFUSES CARE AT FIRST BUT CAN BE PERSUADED. PERIANAL AREA CONTINUES TO BE EXCORIATED. BARRIER CREAM APPLIED. OTHERWISE NO ACUTE CHANGES. VSS. WILL CONTINUE TO MONITOR AND REPORT TO DAY RN.
--- NOTE | 2018-08-07 19:43 | NUR ---
SHIFT SUMMARY- PT HAS SLEPT T/O THE SHIFT, WOKE FOR PT FOR 5 MINUTES. PT FATHER CALLED, HE LIVES WITH HIM AT [facility]. PER PT FATHER PT LAYS IN BED ALL DAY AND DRINKS AND ONLY EATS WHAT IS BROUGHT TO HIM IN BED. PT HAS SCORED A 5 OR LESS ON THE CIWAS T/O THE DAY, NO MEDS GIVEN FOR WITHDRAWL. CALL LIGHT IN REACH, PT HAS NOT CALLED ALL SHIFT, PT IS AN ASSIST TO FEED FOR ALL MEALS, LARGE PILLS WERE CRUSHED AND IN APPLE SAUCE TO PREVENT ASPIRATION.
[2018-08-08 04:48] LABS: Hematocrit 25.3 % (37.0-53.0); Hemoglobin 8.5 g/dL (13.5-17.5)
[2018-08-08 05:09] LABS: Albumin, Blood 2.2 g/dL (3.4-5.0); Anion Gap 8 mmol/L (6-16); Blood Urea Nitrogen 9 mg/dL (8-24); Bun/Creatinine Ratio 16.1 (12.0-20.0); CO2, Blood 22 mmol/L (21-32); Chloride, Blood 104 mmol/L (98-108); Creatinine, Blood 0.56 mg/dL (0.60-1.20); Glomerular Filtration Rate >60 (60-); Glucose, Blood 115 mg/dL (70-99); Magnesium, Blood 1.5 mg/dL (1.6-2.4); Phosphorus, Blood 2.6 mg/dL (2.5-4.9); Potassium, Blood 4.1 mmol/L (3.5-5.5); Sodium, Blood 134 mmol/L (136-145)
--- NOTE | 2018-08-08 05:57 | NUR ---
VSS, AFEBRILE, ALERT BUT VAGUELY CONFUSED AT TIMES, NO S/S OF ANXIETY THIS SHIFT, PT APPEARS TO BE UNABLE TO TRACK TO THE LOGIC OF A CONVERSATION FOR ANY LENGTH OF TIME, CONFABULATES IN AN ATTEMPT TO AVOID APPEARTING TO BE ILLOGICAL AT TIMES, CIWA UNNECESSARY SINCE HE HAS SLEPT SOUNDLY MOST OF THIS SHIFT. NO COMPLAINTS.
--- NOTE | 2018-08-08 18:25 | NUR ---
SHIFT SUMMARY OX3; ETOH; SIWA'S >2. FEEDER BUT CAN EAT SOME FOODS INDEPENDENTLY. TURN Q 2. INCONTINENT. LIVES AT HOME WITH FAMILY. QUIET AND RESTING IN BED FOR MOST OF SHIFT. USED PHONE INDEPENDENTLY TO CALL FAMILY.
[2018-08-09 04:44] LABS: BASOPHILS ABSOLUTE AUTO 0.02 K/mm3 (0.00-0.23); BASOPHILS PERCENT AUTO 0 % (0-2); EOSINOPHILS ABSOLUTE AUTO 0.01 K/mm3 (0.00-0.68); EOSINOPHILS PERCENT AUTO 0 % (0-6); Hematocrit 28.3 % (37.0-53.0); Hemoglobin 9.6 g/dL (13.5-17.5); IMMATURE GRAN ABSOLUTE AUTO 0.03 K/mm3 (0.00-0.10); IMMATURE GRAN PERCENT AUTO 0 % (0-1); LYMPHOCYTES ABSOLUTE AUTO 0.36 K/mm3 (0.84-5.20); LYMPHOCYTES PERCENT AUTO 5 % (21-46); MONOCYTES ABSOLUTE AUTO 0.75 K/mm3 (0.16-1.47); MONOCYTES PERCENT AUTO 11 % (4-13); Mean Corpuscular HGB 38.6 pg (26.0-34.0); Mean Corpuscular HGB Conc 33.9 g/dL (31.5-36.5); Mean Corpuscular Volume 114 fL (80-100); Mean Platelet Volume 11.2 fL (9.1-12.4); NEUTROPHILS ABSOLUTE AUTO 5.81 K/mm3 (1.96-9.15); NEUTROPHILS PERCENT AUTO 83 % (41-73); Platelet Count 77 K/mm3 (150-400); RDW Standard Deviation 78.3 fL (35.1-46.3); Red Blood Cell Count 2.49 M/mm3 (4.30-5.90); White Blood Cell Count 6.98 K/mm3 (4.00-11.30)
[2018-08-09 04:58] LABS: Albumin, Blood 2.4 g/dL (3.4-5.0); Anion Gap 11 mmol/L (6-16); Blood Urea Nitrogen 10 mg/dL (8-24); Bun/Creatinine Ratio 18.9 (12.0-20.0); CO2, Blood 22 mmol/L (21-32); Calcium, Blood 7.4 mg/dL (8.5-10.1); Chloride, Blood 102 mmol/L (98-108); Creatinine, Blood 0.53 mg/dL (0.60-1.20); Glomerular Filtration Rate >60 (60-); Glucose, Blood 85 mg/dL (70-99); Magnesium, Blood 1.3 mg/dL (1.6-2.4); Phosphorus, Blood 3.3 mg/dL (2.5-4.9); Potassium, Blood 3.9 mmol/L (3.5-5.5); Sodium, Blood 135 mmol/L (136-145)
--- NOTE | 2018-08-09 05:28 | NUR ---
VSS, AFEBRILE, A/O, COOPERATIVE W/CARE, PMHX ETOH ABUSE, CIWA NO LONGER NECESSARY, TELE: NSR, PVC, PAC. INCONT, FEEDER, CRUSH MEDS IN APPLESAUCE, BED ALARM.
--- NOTE | 2018-08-09 07:47 | NUR ---
NOTIFIED DR. LEE TELE KENNEL AIDE REPORTS PT'S HR TO BE SINUS TACH AT 133 WITH PVC'S AND PAC'S AND THAT PT DOES NOT HAVE ANY CARDIAC MEDS ORDERED. DR. LEE SAID TO ORDER 500CC BOLUS OF NORMAL SALINE. NO OTHER NEW ORDERS AT THIS TIME.
--- NOTE | 2018-08-09 14:47 | NUR ---
NOTIFIED DR. LEE PT'S HR CURRENTLY 134 PER PCU INTERNIST. NOTIFIED DR. LEE PT'S HR CAME DOWN TO 65 AFTER 500ML BOLUS THIS AM. DR. LEE SAID SHE WOULD PUT ORDERS IN. NO NEW ORDERS AT THIS TIME.
--- NOTE | 2018-08-09 16:21 | NUR ---
NOTIFIED DR. LEE PT RECIEVED BOLUS OF 250ML OF NS AND HAS FLUIDS GOING AT 125ML/HR AND PT'S HR IS 126, BP 187/111, RESP [address] LEE SAID SHE IS GOING TO PUT IN ORDERS. NO NEW ORDERS AT THIS TIME.
--- NOTE | 2018-08-09 18:33 | NUR ---
SHIFT SUMMARY- PT AXO X2. PT DENIES PAIN. DENIES N/V. DENIES SOB. 99% ON RA. PT'S HR HAS BEEN ELEVATED TODAY AND BP ELEVATED THIS PM. SEE PREVIOUS NOTES. MEDS GIVEN PER EMAR. PT'S BP 150/93 AND HR 103 THIS PM. PT RESTING PEACEFULLY IN BED THIS PM. PT WENT FOR CHEST XRAY TODAY. PT STARTED ON IV ANTIBIOTICS THIS PM. PT HAD A TEMP OF 100.9 THIS AM. MEDS GIVEN PER EMAR. PT HAS A TEMP OF 99.1 THIS PM. PT TO HAVE SWALLOW EVAL TOMMORROW. TURNS Q2H. NO OTHER SIGNIFICANT CHANGES THIS SHIFT.
[2018-08-10 05:07] LABS: BASOPHILS ABSOLUTE AUTO 0.03 K/mm3 (0.00-0.23); BASOPHILS PERCENT AUTO 1 % (0-2); EOSINOPHILS PERCENT AUTO 0 % (0-6); Hematocrit 27.2 % (37.0-53.0); Hemoglobin 9.2 g/dL (13.5-17.5); IMMATURE GRAN ABSOLUTE AUTO 0.03 K/mm3 (0.00-0.10); IMMATURE GRAN PERCENT AUTO 1 % (0-1); LYMPHOCYTES ABSOLUTE AUTO 0.31 K/mm3 (0.84-5.20); LYMPHOCYTES PERCENT AUTO 6 % (21-46); MONOCYTES ABSOLUTE AUTO 1.01 K/mm3 (0.16-1.47); MONOCYTES PERCENT AUTO 19 % (4-13); Mean Corpuscular HGB 39.5 pg (26.0-34.0); Mean Corpuscular HGB Conc 33.8 g/dL (31.5-36.5); NEUTROPHILS PERCENT AUTO 74 % (41-73); RDW Coefficient Variation 18.6 % (11.7-14.2); RDW Standard Deviation 79.6 fL (35.1-46.3); Red Blood Cell Count 2.33 M/mm3 (4.30-5.90); White Blood Cell Count 5.38 K/mm3 (4.00-11.30)
[2018-08-10 05:09] LABS: Mean Corpuscular Volume 117 fL (80-100); Mean Platelet Volume 11.6 fL (9.1-12.4); Platelet Count 79 K/mm3 (150-400)
--- NOTE | 2018-08-10 05:28 | NUR ---
SHIFT SUMMARY PT CONTINUES TO HAVE INCREASED HEART RATE AND ELEVATED B/P. PT SLEPT DURING THE NIGHT, CHANGED AND REPOSITIONED Q 2 HRS. NO ACUTE CHANGES NOTED. WILL CONTINUE TO MONITOR.
[2018-08-10 05:50] LABS: Albumin, Blood 2.3 g/dL (3.4-5.0); Anion Gap 10 mmol/L (6-16); Blood Urea Nitrogen 10 mg/dL (8-24); Bun/Creatinine Ratio 21.2 (12.0-20.0); CO2, Blood 19 mmol/L (21-32); Calcium, Blood 7.3 mg/dL (8.5-10.1); Chloride, Blood 103 mmol/L (98-108); Creatinine, Blood 0.47 mg/dL (0.60-1.20); Glomerular Filtration Rate >60 (60-); Glucose, Blood 113 mg/dL (70-99); Magnesium, Blood 1.6 mg/dL (1.6-2.4); Phosphorus, Blood 3.4 mg/dL (2.5-4.9); Potassium, Blood 3.9 mmol/L (3.5-5.5); Sodium, Blood 132 mmol/L (136-145)
--- NOTE | 2018-08-10 16:14 | NUR ---
SUMMARY PT CONTINUES WEAK/FATIGUED/LETHARGIC. HE AROUSES WITH STIM, ORIENTED X2-3. STATE NO PAIN. SPEECH THERAPY IN FOR EVAL THIS AM, STATE NOT PASS SWALLOW EVAL, NPO INCLUDING PO MEDS FOR TODAY, WILL RE-EVAL IN AM, DR LEE NOTIFIED, STATE TO CONTINUE IV NS @ CURRENT RATE 125 ML/HR. BP & HR ELEVATED THIS AM 189/103, HR 125. IV METOPROLOL 5 MG GIVEN, LAST BP 135/98, HR 103, WILL CONTINUE TO MX. PHYTHER IN FOR TX, 2 ASSIST TO SIT UP ON BEDSIDE & BACK TO BED. COMPLEX CASE MANAGER PROVIDE BEDBATH THIS AM. HAVE PROVIDED DAMP SPONGES PRN R/T NPO STATUS. PT HAS BEEN COOPERATIVE/COMPLIANT HOWEVER HOPEFUL TO BE ABLE TO EAT TOMORROW.
--- NOTE | 2018-08-10 21:59 | NUR ---
Assumed care of pt at 1930- recieved report from off-going nurse.
[2018-08-11 00:22] LABS: BASOPHILS ABSOLUTE AUTO 0.02 K/mm3 (0.00-0.23); BASOPHILS PERCENT AUTO 1 % (0-2); EOSINOPHILS PERCENT AUTO 0 % (0-6); Hematocrit 28.4 % (37.0-53.0); Hemoglobin 9.3 g/dL (13.5-17.5); IMMATURE GRAN ABSOLUTE AUTO 0.01 K/mm3 (0.00-0.10); IMMATURE GRAN PERCENT AUTO 0 % (0-1); LYMPHOCYTES ABSOLUTE AUTO 0.46 K/mm3 (0.84-5.20); LYMPHOCYTES PERCENT AUTO 11 % (21-46); MONOCYTES ABSOLUTE AUTO 0.85 K/mm3 (0.16-1.47); MONOCYTES PERCENT AUTO 20 % (4-13); Mean Corpuscular HGB Conc 32.7 g/dL (31.5-36.5); Mean Corpuscular Volume 116 fL (80-100); Mean Platelet Volume 11.1 fL (9.1-12.4); NEUTROPHILS PERCENT AUTO 69 % (41-73); Platelet Count 104 K/mm3 (150-400); RDW Standard Deviation 77.4 fL (35.1-46.3); Red Blood Cell Count 2.45 M/mm3 (4.30-5.90); White Blood Cell Count 4.34 K/mm3 (4.00-11.30)
[2018-08-11 00:37] LABS: Albumin, Blood 2.4 g/dL (3.4-5.0); Anion Gap 11 mmol/L (6-16); Blood Urea Nitrogen 12 mg/dL (8-24); Bun/Creatinine Ratio 22.3 (12.0-20.0); CO2, Blood 22 mmol/L (21-32); Calcium, Blood 7.6 mg/dL (8.5-10.1); Chloride, Blood 103 mmol/L (98-108); Creatinine, Blood 0.54 mg/dL (0.60-1.20); Glomerular Filtration Rate >60 (60-); Glucose, Blood 112 mg/dL (70-99); Magnesium, Blood 1.3 mg/dL (1.6-2.4); Phosphorus, Blood 3.2 mg/dL (2.5-4.9); Potassium, Blood 3.5 mmol/L (3.5-5.5); Sodium, Blood 136 mmol/L (136-145)
--- NOTE | 2018-08-11 00:48 | NUR ---
Pt very upset about not being able to drink or eat. Pt just does not understand why we will not give him something to drink. Lungs are tight and wheezy. Pt has had two resp treatments but they have not helped. During the second one the patient pulled it off the wall and refused to get anymore. Pt stated that it was not helping. Blood draw redrawn due to hemolysis. Second sample sent to lab was also bad so lab draw was drawn from peripheral site. Pt saturation are greater than 93 and pt does not appears to be in respiratory distress.
--- NOTE | 2018-08-11 06:54 | NUR ---
Shift summary: Pt very unhappy about his NPO status. Pt very hungry and thirsty and just does not understand aspiration pneumonia. Pt all over the place and trying repeatedly to get out of bed. Pt very weak and unable to get out of bed but is setting off bed alarm multiple times. Lung wheezy and tight. Pt recieved two breathing tx's during night but did not seem to help. Pt sating > 90 and does not seem to be in resp distress. Midline iv plugged up last pm. Charge nurse was able to unplug it. Clinimix and zosyn restarted.
--- NOTE | 2018-08-11 16:25 | NUR ---
SUMMARY PT IS A/O X2, MENTATION SOMEWHAT IMPROVED FROM PREVIOUS DAY. HE CONTINUES WEAK, FATIGUED HOWEVER PARTICIPATED WITH PHYTHER, SAT UP ON SIDE OF BED & WAS ABLE TO HOLD HIMSELF UP. SPEECH THERAPY EVAL TODAY, ORDER [facility] SOFT/NECTAR THICK DIET W SUPERVISION/ASP PRECAUTIONS. IV CLINIMIX CONTINUES, DR LEE ORDERED FLUID BOLUS TODAY & ADDITIONAL FLUIDS TODAY R/T LOW BP AFTER IV METOPROL THIS AM HOWEVER THIS AFTERNOON BACK TO REASSESS LUNGS & BREATHING, LUNGS COARSE, WHEEZY, BREATHING SOMEWHAT LABORED, PT STATE SOB. DR STOP ADDITIONAL FLUID, DECREASE CLINIMIX TO 50 ML/HR & ORDER LASIX 20MG IV. BNP 184. HAND HIDE STRETCHER HAS BEEN PROVIDING NEB TX'S. BIOX >90% RA. BP THIS AFTERNOON 141/96, HR 105.
--- NOTE | 2018-08-11 20:32 | NUR ---
per telemetry Patient Sinus tach at 124 and trending up. V/S as follows: BP 160/80 HR 122, 97% R 18, T 97.0 gave metoprolol per emar with telementry on the phone
[2018-08-12 05:29] LABS: BASOPHILS ABSOLUTE AUTO 0.03 K/mm3 (0.00-0.23); BASOPHILS PERCENT AUTO 1 % (0-2); EOSINOPHILS ABSOLUTE AUTO 0.01 K/mm3 (0.00-0.68); EOSINOPHILS PERCENT AUTO 0 % (0-6); Hematocrit 23.9 % (37.0-53.0); Hemoglobin 7.9 g/dL (13.5-17.5); IMMATURE GRAN ABSOLUTE AUTO 0.03 K/mm3 (0.00-0.10); IMMATURE GRAN PERCENT AUTO 1 % (0-1); LYMPHOCYTES PERCENT AUTO 9 % (21-46); MONOCYTES ABSOLUTE AUTO 0.91 K/mm3 (0.16-1.47); MONOCYTES PERCENT AUTO 14 % (4-13); Mean Corpuscular HGB 37.1 pg (26.0-34.0); Mean Corpuscular HGB Conc 33.1 g/dL (31.5-36.5); NEUTROPHILS ABSOLUTE AUTO 5.08 K/mm3 (1.96-9.15); NEUTROPHILS PERCENT AUTO 76 % (41-73); Platelet Count 79 K/mm3 (150-400); RDW Coefficient Variation 18.1 % (11.7-14.2); RDW Standard Deviation 73.1 fL (35.1-46.3); Red Blood Cell Count 2.13 M/mm3 (4.30-5.90); White Blood Cell Count 6.66 K/mm3 (4.00-11.30)
[2018-08-12 05:53] LABS: Mean Corpuscular Volume 112 fL (80-100); Mean Platelet Volume 13.4 fL (9.1-12.4)
[2018-08-12 11:11] LABS: Albumin, Blood 2.1 g/dL (3.4-5.0); Anion Gap 7 mmol/L (6-16); Blood Urea Nitrogen 11 mg/dL (8-24); CO2, Blood 27 mmol/L (21-32); Calcium, Blood 7.5 mg/dL (8.5-10.1); Chloride, Blood 101 mmol/L (98-108); Glomerular Filtration Rate >60 (60-); Glucose, Blood 129 mg/dL (70-99); Magnesium, Blood 1.4 mg/dL (1.6-2.4); Phosphorus, Blood 3.5 mg/dL (2.5-4.9); Potassium, Blood 3.4 mmol/L (3.5-5.5); Sodium, Blood 135 mmol/L (136-145)
--- NOTE | 2018-08-12 17:30 | NUR ---
SHIFT SUMMARY. PT LETARGIC TODAY, AWAKENS WITH VERBAL STIMULI. ORIENTATED TO SELF AND PLACE. PT DENIES PAIN, SOB, N/V. PT WITH COARSE WHEEZES THROUGHOUT, SLIGHTLY IMPROVED WITH IV LASIX THIS AFTERNOON. PT HAD EPISODE OF INCREASED HR 130-150 BPM THAT IMPROVED WITH METOPROLOL 2.5MG IV, BP REMAINED STABLE. PT CONTINUES TO BE NPO AFTER BEING SEEN BY ST ELEANOR SALGUERO ON BARIUM SWALLOW TUESDAY. ENVIRONMENTAL PROFESSIONAL CONSULTED FOR PARENTERAL NUTRITION, PT HAS POWERGLIDE. PT INCONTINENT ENTIRE SHIFT. NEW ORDER FOR STOOL GUIAC AND IV PROTONIX STARTED TODAY.
--- NOTE | 2018-08-13 06:18 | NUR ---
PATIENT STARTED TO WAKE UP THIS MORNIGN; AND CONTINUES TO SHOW SIGNS OF CONFUSION. ALSO PATIENT POWERGLIDE CONTINUES TO BE VERY POSITIONAL. REPORTED THIS TO THE CHARGE RAFY BARAKAT FOR RESOLUTION. PATIENT WOULD BE BETTER SERVIED WITH A DOUBLE OR TRIPLE LUMEN.
--- NOTE | 2018-08-13 07:34 | NUR ---
0645: Telemetry reported to the nurse that monitor was showing ST elevation fo rthis patient. called Hospitalist Dr Diego and erika order for EKG - reported to charge and EKG was done. Patient is asymptomatic. passed to day RN to report result to Daytime hospitalist.
[2018-08-13 07:43] LABS: BASOPHILS ABSOLUTE AUTO 0.01 K/mm3 (0.00-0.23); BASOPHILS PERCENT AUTO 0 % (0-2); EOSINOPHILS ABSOLUTE AUTO 0.01 K/mm3 (0.00-0.68); EOSINOPHILS PERCENT AUTO 0 % (0-6); Hematocrit 21.4 % (37.0-53.0); Hemoglobin 7.2 g/dL (13.5-17.5); IMMATURE GRAN ABSOLUTE AUTO 0.03 K/mm3 (0.00-0.10); IMMATURE GRAN PERCENT AUTO 1 % (0-1); LYMPHOCYTES ABSOLUTE AUTO 0.58 K/mm3 (0.84-5.20); LYMPHOCYTES PERCENT AUTO 12 % (21-46); MONOCYTES ABSOLUTE AUTO 0.56 K/mm3 (0.16-1.47); MONOCYTES PERCENT AUTO 12 % (4-13); Mean Corpuscular HGB 38.5 pg (26.0-34.0); Mean Corpuscular HGB Conc 33.6 g/dL (31.5-36.5); Mean Corpuscular Volume 114 fL (80-100); Mean Platelet Volume 11.7 fL (9.1-12.4); NEUTROPHILS ABSOLUTE AUTO 3.66 K/mm3 (1.96-9.15); NEUTROPHILS PERCENT AUTO 76 % (41-73); Platelet Count 66 K/mm3 (150-400); RDW Coefficient Variation 17.6 % (11.7-14.2); RDW Standard Deviation 74.7 fL (35.1-46.3); Red Blood Cell Count 1.87 M/mm3 (4.30-5.90); White Blood Cell Count 4.85 K/mm3 (4.00-11.30)
[2018-08-13 08:01] LABS: Anion Gap 7 mmol/L (6-16); Blood Urea Nitrogen 11 mg/dL (8-24); Bun/Creatinine Ratio 26.3 (12.0-20.0); CO2, Blood 25 mmol/L (21-32); Calcium, Blood 6.6 mg/dL (8.5-10.1); Chloride, Blood 103 mmol/L (98-108); Creatinine, Blood 0.42 mg/dL (0.60-1.20); Glomerular Filtration Rate >60 (60-); Glucose, Blood 86 mg/dL (70-99); Phosphorus, Blood 3.1 mg/dL (2.5-4.9); Potassium, Blood 2.8 mmol/L (3.5-5.5); Sodium, Blood 135 mmol/L (136-145)
[2018-08-13 08:08] LABS: Magnesium, Blood 0.9 mg/dL (1.6-2.4)
--- NOTE | 2018-08-13 15:06 | NUR ---
LATE ENTRY. THIS MORNING PRIOR TO STARTING MAG RIDER, SPOKE WITH DR. MIRANDA AND RECIEVED OK TO GIVE MAG RIDER, THEN K RIDER, AND THEN START BLOOD TRANSFUSION. ONLY ONE PERIPHERAL IV PRESENT. PT REFUSING SECOND IV LINE.
--- NOTE | 2018-08-13 18:24 | NUR ---
SHIFT SUMMARY. A&OX2, MUCH MORE ALERT TODAY, INTERMITTENT CONFUSION. PT DENIES PAIN, SOB, N/V. GI CONSULTED. PT RECIEVED Mg, KCL, AND HAS STARTED FIRST OF 2 UNITS PRBC. PT HAD TWO LOOSE BROWN INCONTINENT BMS. PT HAS BEEN INCONTINENT OF URINE. BARRIER CREAM APPLIED WITH EACH INCONTINENT EPISODE. REPOSITIONED PER SCHEDULE. PT ATTEMPTED TO REFUSE CARE AT TIMES.
[2018-08-14 05:44] LABS: BASOPHILS ABSOLUTE AUTO 0.01 K/mm3 (0.00-0.23); BASOPHILS PERCENT AUTO 0 % (0-2); EOSINOPHILS ABSOLUTE AUTO 0.02 K/mm3 (0.00-0.68); EOSINOPHILS PERCENT AUTO 0 % (0-6); Hematocrit 30.3 % (37.0-53.0); Hemoglobin 10.3 g/dL (13.5-17.5); IMMATURE GRAN ABSOLUTE AUTO 0.04 K/mm3 (0.00-0.10); IMMATURE GRAN PERCENT AUTO 1 % (0-1); LYMPHOCYTES ABSOLUTE AUTO 0.62 K/mm3 (0.84-5.20); LYMPHOCYTES PERCENT AUTO 10 % (21-46); MONOCYTES ABSOLUTE AUTO 0.55 K/mm3 (0.16-1.47); MONOCYTES PERCENT AUTO 9 % (4-13); Mean Corpuscular HGB 35.5 pg (26.0-34.0); NEUTROPHILS ABSOLUTE AUTO 4.84 K/mm3 (1.96-9.15); NEUTROPHILS PERCENT AUTO 80 % (41-73); Platelet Count 83 K/mm3 (150-400); RDW Coefficient Variation 20.5 % (11.7-14.2); RDW Standard Deviation 79.7 fL (35.1-46.3); White Blood Cell Count 6.08 K/mm3 (4.00-11.30)
[2018-08-14 05:53] LABS: Mean Corpuscular Volume 105 fL (80-100)
[2018-08-14 06:00] LABS: Alanine Aminotransfer (ALT/SGP 21 U/L (12-78); Albumin, Blood 1.9 g/dL (3.4-5.0); Albumin/Globulin Ratio 0.6 (0.8-1.8); Alk Phos 53 U/L (50-136); Anion Gap 8 mmol/L (6-16); Aspartate Aminotrans (AST/SGOT 42 U/L (12-37); Bilirubin, Total 2.9 mg/dL (0.1-1.0); Blood Urea Nitrogen 10 mg/dL (8-24); Bun/Creatinine Ratio 19.3 (12.0-20.0); CO2, Blood 28 mmol/L (21-32); Calcium, Blood 7.4 mg/dL (8.5-10.1); Chloride, Blood 100 mmol/L (98-108); Creatinine, Blood 0.52 mg/dL (0.60-1.20); Globulin, Blood 3.4 g/dL (2.2-4.0); Glomerular Filtration Rate >60 (60-); Glucose, Blood 79 mg/dL (70-99); Magnesium, Blood 1.3 mg/dL (1.6-2.4); Potassium, Blood 2.9 mmol/L (3.5-5.5); Sodium, Blood 136 mmol/L (136-145); Total Protein, Blood 5.3 g/dL (6.4-8.2)
--- NOTE | 2018-08-14 06:00 | NUR ---
DOLL SURGEON SUMMARY PT AAOX2, KNOWS HE'S IN THE HOSPITAL IN [place] AND THE DATE BUT IS FORGETFUL AND A LITTLE DISORIENTED AT TIMES MAINLY AT NIGHT. AT NIGHT PT IS VERY RESTLESS AND CONSTANTLY FIDDLING WITH TELE LINES AND BLANKETS. PT HAS BEEN STRICT NPO DUE TO PROBABLY ASPIRATION A FEW DAYS AGO. PT VERY IRRITABLE AND UPSET ABOUT BEING NPO AND CONSTANTLY ASKS FOR FOOD AND WATER REGARDLESS OF HOW MANY TIMES HE IS EDUCATED ABOUT HIS NPO STATUS. PT FINISHED 2 UNITS OF PRBC'S TONIGHT. HGB UP OVER 10 THIS AM FROM PREVIOUS VALUE AROUND 7. CONTINUED ON ABX WELL CLINIMIX/LIPIDS. AIRCRAFT ENGINE ASSEMBLER REPORTS SINUS TACH IN LOW 100'S WITH OCCASIONAL DIPS INTO 60'S WHICH HAS BEEN THE NORM SINCE ADMIT. OTHER VSS, WILL CONTINUE TO MONITOR.
[2018-08-14 14:19] LABS: Stool Occult Blood Guaiac 1 Neg (Neg)
--- NOTE | 2018-08-14 14:43 | NUR ---
PT GAVE PERMISSION FOR CARE.
--- NOTE | 2018-08-14 18:18 | NUR ---
SHIFT SUMMARY. A&OX2, INTERMITTENT CONFUSION, MEMORY DEFICITS, PSYCH CONSULTED TODAY ALTHOUGH HAS NOT SEEN PT YET. PT HAD 3 INCONTINET LOOSE BROWN STOOLS THROUGHOUT THE SHIFT. JUST RECENTLY PT HAD ONE SMALL LIQUID BLACK TARRY STOOL, DR. CEDENO JUST NOTIFIED HE WAS JUST IN ROUNDING ON THE PT. NO PAIN, NO SOB, CONTINUES ON RA. PT REFUSES NEBS, CHANGED TO PRN. 40MEQ OF KCL GIVEN IV. CONITNUES WITH CLINIMIX WITH LIPIDS. IMAGING UNABLE TO BARIUM SWALLOW TODAY, IT WILL BE DONE TODAY.
[2018-08-15 04:59] LABS: BASOPHILS ABSOLUTE AUTO 0.03 K/mm3 (0.00-0.23); BASOPHILS PERCENT AUTO 0 % (0-2); EOSINOPHILS ABSOLUTE AUTO 0.04 K/mm3 (0.00-0.68); EOSINOPHILS PERCENT AUTO 1 % (0-6); Hematocrit 31.6 % (37.0-53.0); Hemoglobin 10.7 g/dL (13.5-17.5); IMMATURE GRAN ABSOLUTE AUTO 0.04 K/mm3 (0.00-0.10); IMMATURE GRAN PERCENT AUTO 1 % (0-1); LYMPHOCYTES ABSOLUTE AUTO 0.77 K/mm3 (0.84-5.20); LYMPHOCYTES PERCENT AUTO 11 % (21-46); MONOCYTES ABSOLUTE AUTO 0.55 K/mm3 (0.16-1.47); MONOCYTES PERCENT AUTO 8 % (4-13); Mean Corpuscular HGB 36.1 pg (26.0-34.0); Mean Corpuscular HGB Conc 33.9 g/dL (31.5-36.5); Mean Corpuscular Volume 107 fL (80-100); Mean Platelet Volume 11.8 fL (9.1-12.4); NEUTROPHILS ABSOLUTE AUTO 5.89 K/mm3 (1.96-9.15); NEUTROPHILS PERCENT AUTO 81 % (41-73); Platelet Count 94 K/mm3 (150-400); RDW Coefficient Variation 19.8 % (11.7-14.2); RDW Standard Deviation 76.9 fL (35.1-46.3); Red Blood Cell Count 2.96 M/mm3 (4.30-5.90); White Blood Cell Count 7.32 K/mm3 (4.00-11.30)
--- NOTE | 2018-08-15 05:05 | NUR ---
LIFE SKILLS WORKER SUMMARY NO ACUTE CHANGES THIS SHIFT. PT AAOX2, KNOWS HE'S AT THE HOSPITAL, KNOWS THE YEAR AND PRESIDENT. CAN MAKE NEEDS KNOWN, HOWEVER PT IS OFTEN CONFUSED AND DISORIENTED. CONSULT PLACED DURING DAY SHIFT FOR PSYCH EVAL R/T PT'S POSSIBLE DEMENTIA. PT ATTEMPTS TO GET OUT OF BED WITHOUT ASSISTANCE AT TIMES, BED ALARM ON FOR SAFETY. IV NUTRITION VIA CLINIMIX AND LIPIDS. PT HR CONSISTANT IN LOW 100'S WITH Q6H IV LOPRESSOR 2.5 MG. VSS, WILL CONTINUE TO MONITOR.
[2018-08-15 05:13] LABS: Anion Gap 8 mmol/L (6-16); Blood Urea Nitrogen 10 mg/dL (8-24); Bun/Creatinine Ratio 19.3 (12.0-20.0); CO2, Blood 26 mmol/L (21-32); Calcium, Blood 7.8 mg/dL (8.5-10.1); Chloride, Blood 103 mmol/L (98-108); Creatinine, Blood 0.52 mg/dL (0.60-1.20); Glomerular Filtration Rate >60 (60-); Glucose, Blood 101 mg/dL (70-99); Magnesium, Blood 1.6 mg/dL (1.6-2.4); Phosphorus, Blood 2.9 mg/dL (2.5-4.9); Potassium, Blood 3.4 mmol/L (3.5-5.5); Sodium, Blood 137 mmol/L (136-145)
[2018-08-15 07:16] LABS: HBSAG SCREEN Negative (Negative); HEP B CORE AB, TOT Negative (Negative); HEP C VIRUS AB 0.1 (0.0-0.9)
--- NOTE | 2018-08-15 13:45 | NUR ---
Pt granted me permission to care for him tomorrow.
--- NOTE | 2018-08-15 18:06 | NUR ---
SUMMARY PT SITTING UP IN BED EATING DINNER WITH SOME ASSISTANCE, PT HAS BEEN CONFUSED T/O THE DAY, HAVING VISUAL HALLUCINATIONS AND DELUSIONS, PT OCC HOSTILE AND RESISTANT TO CARE AND THEN LATER PLEASANT AND COOPERATIVE, PT HAD A BARIUM SWALLOW TODAY, HIS FATHER CALLED TO CHECK ON HIM, PT/OT HAS WORKED WITH HIM, PT REMAINS WHEEZY BUT DENIES SOB, STILL PENDING CONSULT FROM DR MARTINEZ, VSS, NO ACUTE CHANGES, WILL CONT TO MONITOR
--- NOTE | 2018-08-16 02:57 | NUR ---
CLINIMIX RATE PHARMACIST TANA CALLED AND BELIEVES THAT PT'S RATE WAS ADJUSTED AND INCREASED TO 100 ML/HR AND PREVIOUS DOSE WITH LOWER RATE OF 75 ML/HR WAS NEVER DISCONTINUED. THERE ARE TWO DIFFERENT BAGS OF CLINIMIX THAT ALTERNATE, ONE WITH VITAMINS AND ONE WITHOUT BUT RATE SHOULD NOT VARY BETWEEN THE TWO. PHARMACIST RECOMMENDED RUNNING CLINIMIX AT 100 ML/HR FOR REMAINDER OF THE EVENING AND TO CLARIFY WITH DAY SHIFT HOSPITALIST TO ENSURE DESIRED RATE IS ORDERED AND RUNNING. NEW BAG OF CLINIMIX HUNG AND RATE ADJUSTED TO 100 ML/HR.
[2018-08-16 06:22] LABS: BASOPHILS ABSOLUTE AUTO 0.03 K/mm3 (0.00-0.23); BASOPHILS PERCENT AUTO 0 % (0-2); EOSINOPHILS ABSOLUTE AUTO 0.04 K/mm3 (0.00-0.68); EOSINOPHILS PERCENT AUTO 1 % (0-6); Hematocrit 31.7 % (37.0-53.0); Hemoglobin 10.5 g/dL (13.5-17.5); IMMATURE GRAN ABSOLUTE AUTO 0.04 K/mm3 (0.00-0.10); IMMATURE GRAN PERCENT AUTO 1 % (0-1); LYMPHOCYTES PERCENT AUTO 10 % (21-46); MONOCYTES ABSOLUTE AUTO 0.52 K/mm3 (0.16-1.47); MONOCYTES PERCENT AUTO 7 % (4-13); Mean Corpuscular HGB Conc 33.1 g/dL (31.5-36.5); Mean Corpuscular Volume 106 fL (80-100); Mean Platelet Volume 11.9 fL (9.1-12.4); NEUTROPHILS ABSOLUTE AUTO 6.57 K/mm3 (1.96-9.15); NEUTROPHILS PERCENT AUTO 82 % (41-73); Platelet Count 104 K/mm3 (150-400); RDW Coefficient Variation 19.3 % (11.7-14.2); RDW Standard Deviation 74.5 fL (35.1-46.3)
[2018-08-16 06:37] LABS: Alanine Aminotransfer (ALT/SGP 22 U/L (12-78); Albumin/Globulin Ratio 0.5 (0.8-1.8); Alk Phos 62 U/L (50-136); Anion Gap 7 mmol/L (6-16); Aspartate Aminotrans (AST/SGOT 43 U/L (12-37); Bilirubin, Direct 0.6 mg/dL (0.0-0.3); Bilirubin, Indirect 0.4 mg/dL (0.1-0.7); Blood Urea Nitrogen 12 mg/dL (8-24); CO2, Blood 27 mmol/L (21-32); Calcium, Blood 7.8 mg/dL (8.5-10.1); Chloride, Blood 102 mmol/L (98-108); Creatinine, Blood 0.52 mg/dL (0.60-1.20); Globulin, Blood 3.9 g/dL (2.2-4.0); Glomerular Filtration Rate >60 (60-); Glucose, Blood 124 mg/dL (70-99); Magnesium, Blood 1.7 mg/dL (1.6-2.4); Phosphorus, Blood 3.1 mg/dL (2.5-4.9); Potassium, Blood 3.3 mmol/L (3.5-5.5); Sodium, Blood 136 mmol/L (136-145); Total Protein, Blood 5.9 g/dL (6.4-8.2)
--- NOTE | 2018-08-16 06:38 | NUR ---
SHIFT SUMMARY PT IS A 63 Y/O MALE, ADMITTED FOR HYPOKALEMIA AND ENCEPHALOPATHY. PT HAS A HX OF ETOH ABUSE AND SMOKING. PT IS A&O X SELF AND FAMILY ONLY, AND IS IMPULSIVE IN GETTING OUT OF BED. HE WAS PLEASANT AND COOPERATIVE WITH CARE DURING THE FIRST HALF OF THE SHIFT, BUT IN THE AM BEGAN TO ACT MORE AGITATED AND PARANOID, REPEATEDLY ASKING FOR ALCOHOL AND CIGARRETTES, AND WHEN TOLD THAT HE WAS IN THE HOSPITAL AND NONE WAS AVAILABLE, SAID TO "STOP BRINGING THAT UP" AND THAT IT WAS A "LIKELY STORY". THE PT MAY ALSO HAVE BEEN VISUALLY HALLUCINATING DURING THE NIGHT, HE TALKED ABOUT DRIPPING WATER, AND POINTED OUT BOXED ALONG A BLANK WALL. PT'S HEART RATE RAN TACHY DURING THE NIGHT, BETWEEN 100-120S PER THE MACERATOR OPERATOR. HE WAS GIVEN SCHEDULED IV LOPRESSOR DURING THE NIGHT. VITALS OTHERWISE REMAINED STABLE. NO OTHER ACUTE CHANGES IN PT CONDITION NOTED. WILL CONTINUE TO MONITOR AND TREAT PER EMAR.
--- NOTE | 2018-08-16 15:59 | NUR ---
This patient gave me permission to work with him at 1550 today.
--- NOTE | 2018-08-16 18:16 | NUR ---
Initial Visit: Consult received for advance care planning. Pt is alert, oriented. He is not talkative, but answers my question with as few words as possible it seems. He is asking for a soda, asks me to thicken it for him as per his dietary instructions. Checked with nurse and went to get him cindy mist. Instructed no straws, sit the bed up for aspiration risk. Pt does not give me permission to speak with family members, so I did not make phone calls for this patient. It appears that the patient must be placed, Dr. Brown has noted that he should have a guardian. Symptoms are managed at this time, please let Palliative Care know if a symptom review should be made again. Will be available.
--- NOTE | 2018-08-16 19:34 | NUR ---
SHIFT SUMMARY: NO ACUTE CHANGES TO REPORT THIS SHIFT. PT HX ETOH ABUSE; ALERT; ORIENTED TO SELF AND FAMILY; IRRITABLE; UNCOOPERATIVE WITH PT/OT; COOPERATIVE WITH NURSING CARE. OCCASIONAL VISUAL HALLUCINATIONS. TELE IN PLACE; ST @ 104 PER CORRESPONDENCE SPECIALIST DURING MORNING ASSESSMENT. ASPIRATION PRECAUTIONS; SWALLOW EVAL COMPLETE; POOR ORAL INTAKE; CLINIMIX @ 100 CONTINUING. GUARDIANSHIP LETTER COMPLETED THIS SHIFT; DISCHARGE PLANNERS WORKING ON PLACEMENT. IV ABX CONTINUING. REPORT GIVEN TO ONCOMING RN.
[2018-08-17 05:39] LABS: BASOPHILS ABSOLUTE AUTO 0.04 K/mm3 (0.00-0.23); BASOPHILS PERCENT AUTO 1 % (0-2); EOSINOPHILS ABSOLUTE AUTO 0.08 K/mm3 (0.00-0.68); EOSINOPHILS PERCENT AUTO 1 % (0-6); Hematocrit 32.3 % (37.0-53.0); Hemoglobin 10.6 g/dL (13.5-17.5); IMMATURE GRAN ABSOLUTE AUTO 0.05 K/mm3 (0.00-0.10); IMMATURE GRAN PERCENT AUTO 1 % (0-1); LYMPHOCYTES ABSOLUTE AUTO 0.64 K/mm3 (0.84-5.20); LYMPHOCYTES PERCENT AUTO 9 % (21-46); MONOCYTES ABSOLUTE AUTO 0.54 K/mm3 (0.16-1.47); MONOCYTES PERCENT AUTO 7 % (4-13); Mean Corpuscular HGB 36.2 pg (26.0-34.0); Mean Corpuscular HGB Conc 32.8 g/dL (31.5-36.5); Mean Platelet Volume 12.4 fL (9.1-12.4); NEUTROPHILS ABSOLUTE AUTO 6.15 K/mm3 (1.96-9.15); NEUTROPHILS PERCENT AUTO 82 % (41-73); Platelet Count 91 K/mm3 (150-400); RDW Coefficient Variation 18.6 % (11.7-14.2); RDW Standard Deviation 75.2 fL (35.1-46.3); Red Blood Cell Count 2.93 M/mm3 (4.30-5.90)
[2018-08-17 05:51] LABS: Mean Corpuscular Volume 110 fL (80-100)
[2018-08-17 06:00] LABS: Anion Gap 7 mmol/L (6-16); Blood Urea Nitrogen 11 mg/dL (8-24); Bun/Creatinine Ratio 19.1 (12.0-20.0); CO2, Blood 28 mmol/L (21-32); Calcium, Blood 7.6 mg/dL (8.5-10.1); Chloride, Blood 102 mmol/L (98-108); Creatinine, Blood 0.58 mg/dL (0.60-1.20); Glomerular Filtration Rate >60 (60-); Glucose, Blood 100 mg/dL (70-99); Magnesium, Blood 1.6 mg/dL (1.6-2.4); Phosphorus, Blood 3.5 mg/dL (2.5-4.9); Potassium, Blood 3.6 mmol/L (3.5-5.5); Sodium, Blood 137 mmol/L (136-145)
--- NOTE | 2018-08-17 07:38 | NUR ---
NOC SHIFT SUMMARY PT WAS MOSTLY COOPERATIVE WITH CARE THIS NIGHT. CONTINIOUSLY BENDING ARM AND CAUSING PUMP TO ALARM. NO ACUTE CHANGES IN S.S OR MENTATION NOTED THIS NIGHT. VSS. APPEARS IN NO ACUTE DISTRESS. REPORT TO ONCOMING RN.
--- NOTE | 2018-08-17 19:17 | NUR ---
SHIFT SUMMARY PATIENT MOSTLY COOPERATIVE WITH CARE TODAY. REFUSED PT AND OT. TOLERATING MECH SOFT DIET W/O S/SX ASPIRATION. REPOSITIONED PATIENT ALLOWS. NO ACUTE CHANGES THIS SHIFT.
--- NOTE | 2018-08-18 04:00 | NUR ---
NOC SHIFT SUMMARY PT HAS BEEN MOSTLY COOPERATIVE WITH CARE THIS NIGHT. HE DOES HAVE A HABIT OF BENDING HIS ARM QUITE A LOT WHICH KINKS HIS IV AND STOPS THE PUMP. NO ACUTE CHANGES NOTED. APPEARS IN NO ACUTE DISTRESS. WILL CONTINUE TO MONITOR.
[2018-08-18 04:47] LABS: BASOPHILS ABSOLUTE AUTO 0.03 K/mm3 (0.00-0.23); BASOPHILS PERCENT AUTO 0 % (0-2); EOSINOPHILS ABSOLUTE AUTO 0.11 K/mm3 (0.00-0.68); EOSINOPHILS PERCENT AUTO 2 % (0-6); Hemoglobin 10.8 g/dL (13.5-17.5); IMMATURE GRAN ABSOLUTE AUTO 0.03 K/mm3 (0.00-0.10); IMMATURE GRAN PERCENT AUTO 0 % (0-1); LYMPHOCYTES ABSOLUTE AUTO 0.57 K/mm3 (0.84-5.20); LYMPHOCYTES PERCENT AUTO 8 % (21-46); MONOCYTES ABSOLUTE AUTO 0.64 K/mm3 (0.16-1.47); MONOCYTES PERCENT AUTO 9 % (4-13); Mean Corpuscular HGB 35.9 pg (26.0-34.0); Mean Corpuscular HGB Conc 32.7 g/dL (31.5-36.5); Mean Corpuscular Volume 110 fL (80-100); Mean Platelet Volume 12.4 fL (9.1-12.4); NEUTROPHILS ABSOLUTE AUTO 5.98 K/mm3 (1.96-9.15); NEUTROPHILS PERCENT AUTO 81 % (41-73); Platelet Count 95 K/mm3 (150-400); RDW Coefficient Variation 18.1 % (11.7-14.2); RDW Standard Deviation 73.2 fL (35.1-46.3); Red Blood Cell Count 3.01 M/mm3 (4.30-5.90); White Blood Cell Count 7.36 K/mm3 (4.00-11.30)
[2018-08-18 05:03] LABS: Anion Gap 6 mmol/L (6-16); Blood Urea Nitrogen 12 mg/dL (8-24); Bun/Creatinine Ratio 21.8 (12.0-20.0); CO2, Blood 29 mmol/L (21-32); Calcium, Blood 8.1 mg/dL (8.5-10.1); Chloride, Blood 101 mmol/L (98-108); Creatinine, Blood 0.55 mg/dL (0.60-1.20); Glomerular Filtration Rate >60 (60-); Glucose, Blood 87 mg/dL (70-99); Magnesium, Blood 1.5 mg/dL (1.6-2.4); Phosphorus, Blood 3.6 mg/dL (2.5-4.9); Potassium, Blood 3.5 mmol/L (3.5-5.5); Sodium, Blood 136 mmol/L (136-145)
--- NOTE | 2018-08-18 13:30 | NUR ---
MOVED RECLINER CHAIR INTO ROOM TO ATTEMPT ASSISTING PATIENT TO SITE IN CHAIR. PT STATES "I'LL TRY LATER I DON'T WANT TO RIGHT NOW"; BENEFITS OF CHANGING POSITIONS IN BED AND SITTING IN CHAIR DESCRIBED TO PATIENT. PT REFUSED TO TRY TO SIT ON EDGE OF THE BED OR ATTEMPT ANY ACTIVITY TODAY. TAKING PO FLUIDS WELL. OX3 ALERT; AT TIMES SLOW TO RESPOND.
--- NOTE | 2018-08-18 14:45 | NUR ---
Pt refused to get up in chair and refused to be repositioned with pillows, will attempt again at a later time.
--- NOTE | 2018-08-18 18:44 | NUR ---
SHIFT SUMMARY REFUSING ANY ACTIVITY TODAY. MULTIPLE ATTEMPTS TO ASSIST PATIENT INTO CHAIR AND REPOSITION WHILE IN BED PT REPEATEDLY REFUSED. VERY LITTLE PO INTAKE BUT TAKE THICKENED FLUIDS WELL. CLINAMIX AND FAT EMULSION INFUSING. A AND OX3. INCONTINENT ATTENDS IN PLACE.
[2018-08-19 05:40] LABS: Anion Gap 8 mmol/L (6-16); Blood Urea Nitrogen 10 mg/dL (8-24); Bun/Creatinine Ratio 18.2 (12.0-20.0); CO2, Blood 29 mmol/L (21-32); Calcium, Blood 8.1 mg/dL (8.5-10.1); Chloride, Blood 97 mmol/L (98-108); Creatinine, Blood 0.55 mg/dL (0.60-1.20); Glomerular Filtration Rate >60 (60-); Glucose, Blood 90 mg/dL (70-99); Magnesium, Blood 1.3 mg/dL (1.6-2.4); Potassium, Blood 3.5 mmol/L (3.5-5.5); Sodium, Blood 134 mmol/L (136-145)
--- NOTE | 2018-08-19 05:52 | NUR ---
Rn summary: Patient is alert to self, wanted to know who had hired me and he seemed surpirzed he was in the hospital and not home. Pt is incontinent of urine and has had 2 yellowish liquid stools. Vernell area is excoriated and barrier cream has been applied. Pt has edema to rt lower leg and foot, but he tends to put that leg over edge of bed and it is dependant. Breath sounds with fine inspiratory wheezes and expiratory courseness. Pt abdomen is very distended with active loud bowel tones. Pt did break tubing on powerglide and IV is not working at this time. Drsg changed and arm repositioned. Charge nurse to evaluate before discontinueing. Pt has been receiving lipids and clinamix, which are on hold due to no IV access since 429. Pt takes very little in PO. Does not like thickened liquids. Bed alarm is on for safety. Call light in reach.
--- NOTE | 2018-08-19 18:13 | NUR ---
SUMMARY PT RESTING QUIETLY IN BED, HAS BEEN COOPERATIVE WITH MOST CARE, RESISTANT TO TAKING HIS PILLS THIS MORNING, THEN HE TOOK THEM LATER IN THE DAY, CRUSHED IN APPLESAUCE, PT REMAINS WEAK WITH A LARGE ABD, VSS, NO ACUTE CHANGES, WILL CONT TO MONITOR
--- NOTE | 2018-08-20 04:26 | NUR ---
SHIFT SUMMARY PT HAS REQUESTED MULTIPLE THICKENED BEVERAGES. HE CAN BECOME INPAITENT WITH STAFF, AND YELLS OUT WHENEVER HE NEEDS ASSISTANCE AND DOES NOT USE CALL LIGHT. HE HAS HAD INCONTINENT VOIDS WELL ONE INCONTINENT LIQUID BM THIS SHIFT .PT HAS SLEPT ON AND OFF T/O THE NIGHT. TOLERATED HIS MEDS CRUSHED IN APPLESAUCE. VITALS STABLE. WILL CONTINUE TO MONITOR AND REPORT TO ONCOMING RN.
[2018-08-20 05:42] LABS: Anion Gap 9 mmol/L (6-16); Blood Urea Nitrogen 9 mg/dL (8-24); Bun/Creatinine Ratio 15.3 (12.0-20.0); CO2, Blood 28 mmol/L (21-32); Calcium, Blood 7.9 mg/dL (8.5-10.1); Chloride, Blood 99 mmol/L (98-108); Creatinine, Blood 0.59 mg/dL (0.60-1.20); Glomerular Filtration Rate >60 (60-); Glucose, Blood 124 mg/dL (70-99); Magnesium, Blood 1.4 mg/dL (1.6-2.4); Potassium, Blood 3.3 mmol/L (3.5-5.5); Sodium, Blood 136 mmol/L (136-145)
--- NOTE | 2018-08-20 18:02 | NUR ---
SUMMARY PT AWAKE IN BED WATCHING TV, REFUSED DINNER, ONLY EATING SNACKS T/O THE DAY, PT WILL EAT ORANGE SHERBERT AND/OR ROOT BEER MIXED WITH ICE CREAM, PT DOES NOT LIKE THE MAGIC CUPS HE GETS ON HIS TRAY, REFUSES THE BANANAS, ONLY TAKES BITES OF EVERYTHING, PT HAS BEEN INCONTINENT OF BOWEL AND BLADDER, VSS, WILL CONT TO MONITOR
--- NOTE | 2018-08-21 05:09 | NUR ---
SHIFT SUMMARY THERE HAVE BEEN NO CHANGES OVERNIGHT. PT HAS INTERMITTENT CONFUSION. REQUESTS SNACKS AND DRINKS OFTEN. ASPIRATION PRECAUTIONS PER ORDERS. PT HAS HAD TWO INCONTINENT LIQUID STOOLS. HE DENIES PAIN. RESP E/U ON RA. ASSESSMENT HAS REMAINED UNCHANGED. AWAITING PLACEMENT. WILL CONTINUE TO MONITOR AND REPORT TO ONCOMING RN.
[2018-08-21 05:18] LABS: Anion Gap 11 mmol/L (6-16); Blood Urea Nitrogen 7 mg/dL (8-24); Bun/Creatinine Ratio 12.4 (12.0-20.0); CO2, Blood 28 mmol/L (21-32); Calcium, Blood 8.5 mg/dL (8.5-10.1); Chloride, Blood 98 mmol/L (98-108); Creatinine, Blood 0.57 mg/dL (0.60-1.20); Glomerular Filtration Rate >60 (60-); Glucose, Blood 83 mg/dL (70-99); Magnesium, Blood 1.5 mg/dL (1.6-2.4); Potassium, Blood 3.1 mmol/L (3.5-5.5); Sodium, Blood 137 mmol/L (136-145)
--- NOTE | 2018-08-21 12:59 | NUR ---
PERIODS OF CONFUSION/HALLUCINATIONS. POOR APPETITE/REFUSING MEALS BUT WILL DRINK NECTAR THICK FLUIDS. IV POTASSIUM/MAGNESIUM SUPPLEMENTS BEING GIVEN. COOP WITH CARE. FRAIL APPEARANCE. DISTENDED ABD/FIRM. SKIN FRAGILE WITH BRUISING AND SCABS SCATTERED T/O.
--- NOTE | 2018-08-22 04:30 | NUR ---
SHIFT SUMMARY NO ACUTE CHANGES TO PRESENT THIS SHIFT. PT RESTED QUIETLY THRU OUT THE NIGHT. WOKE EASILY FOR CARE. INCONTINENT OF BOWEL AND BLADDER. EXCORIATED BUTTOCKS AND ROBBIE AREA R/T YEAST REDNESS. DR MCCLURE NOTIFIED FOR NYSTATIN. BED ALARM ON FOR SAFETY. PT LIKES SPRITE; NECTAR THICK LIQUIDS GIVEN PER ORDERS. HX OF ETOH, HEP A+, AND BLOATED ABD. WAITING FOR GUARDIANSHIP AND OR PLACEMENT PER SHIFT REPORT, PT UNABLE TO CARE FOR HIMSELF. TOLERATED SCD'S WELL. NO C/O. CALL LT IN REACH. WARM BLANKETS GIVEN WITH LINEN CHANGES.
--- NOTE | 2018-08-22 19:23 | NUR ---
SHIFT SUMAMRY: NO ACUTE CHANGES TO REPORT THIS SHIFT. PT ALERT; ORIENTED TO SELF; CALM AND COOEPRATIVE WITH CARE. FORGETFUL/CONFUSED R/T ETOH ABUSE; BED ALARM ON FOR SAFETY. INCONTINENT OF BOWEL AND BLADDER; ATTENDS IN PLACE; FREQUENT CHANGES REQUIRED. GROIN/ROBBIE AREA RED; NYSTATIN CREAM Q8. AWAITING PLACEMENT. REPORT GIVEN TO ONCOMING RN.
--- NOTE | 2018-08-23 00:41 | NUR ---
PATIENT CONFUSED ASKING FOR HIS CIGARETTE'S T/O THE SHIFT. PATIENT ASKING IF HE GOT HIS DINNER. PATIENT NOT ABLE TO REORIENT. CALL LIGHT IN REACH.
--- NOTE | 2018-08-23 03:35 | NUR ---
SHIFT SUMMARY PATIENT HAD NO ACUTE CHANGES OBSERVED THIS SHIFT. AXO TO SELF. PATIENT ASKED STAFF WHERE HIS CIGARETTE'S ARE T/O THE SHIFT. PATIENT CONFUSED AND UNABLE TO REORIENT. TAKES HIS MEDICATION CRUSHED IN APPLE SAUCE. PIV REMAINS INTACT. SCHEDULE NYSTATIN CREME FOR GROIN/ROBBIE AREA. VSS/AFEBRILE. DENIES PAIN, SOB, AND N/V. AWAITING PLACEMENT. CALL LIGHT IN REACH. BED IN LOWEST POSITION. WILL CONTINUE TO MONITOR UNTIL DAY SHIFT NURSE ASSUMES CARE.
[2018-08-23 04:54] LABS: Anion Gap 7 mmol/L (6-16); Blood Urea Nitrogen 6 mg/dL (8-24); Bun/Creatinine Ratio 9.8 (12.0-20.0); CO2, Blood 29 mmol/L (21-32); Calcium, Blood 8.2 mg/dL (8.5-10.1); Chloride, Blood 97 mmol/L (98-108); Creatinine, Blood 0.61 mg/dL (0.60-1.20); Glomerular Filtration Rate >60 (60-); Glucose, Blood 89 mg/dL (70-99); Magnesium, Blood 1.4 mg/dL (1.6-2.4); Potassium, Blood 3.6 mmol/L (3.5-5.5); Sodium, Blood 133 mmol/L (136-145)
--- NOTE | 2018-08-23 18:35 | NUR ---
PT. VERY CONFUSED. REFUSED LUNCH AND DINNER, DID WANT ENSURE TO DRINK. PT. HAD 1 BOWEL MOVEMENT TODAY THAT WAS ORANGE AND THE CONSISTENCY OF PUDDING WITHOUT ANY ORDER. PT. IS COVERED IN A RED RASH T/O, DENIES THAT IT ITCHES. PERIAREA AND BUTTOCKS BRIGHT RED, CLAZIME AND NYSTATIN CREAM PLACED.
--- NOTE | 2018-08-24 07:23 | NUR ---
*SHIFT SUMMARY* PT IS CONFUSED. PATIENT TRIED TO GET OOB SEVERAL TIMES WITHOUT HELP FROM STAFF. PATIENT INCONTINENT OF STOOL AND TAKING BRIEF OFF AND THROWING ON THE FLOOR. CALLED HOSPITALIST AND RECIEVED ORDER FOR VEST AND BILATERAL SOFT WRIST RESTRAINTS AND ATIVAN FOR AGITATION. EXPLAINED TO PATIENT WHY STAFF WAS PLACING HIM IN A LUCIEN VEST AND WRIST RESTRAINTS. PATIENT CONTINUES TO SAY RANDOM THINGS. TRUNK OF SKIN HAS A VERY RED RASH, ROBBIE AREA AND LEGS ARE RED FROM RASH WELL. NYSTATIN CREAM APPLIED ORDERED. VITALS STABLE.
--- NOTE | 2018-08-24 09:32 | NUR ---
PATIENT VERY AGITATED THIS MORNING. MEDS CRUSHED IN APPLESAUCE. PATIENT TOOK A FEW BITES AND THEN REFUSED TO TAKE THE REST. UNABLE TO REORIENT.
--- NOTE | 2018-08-24 19:14 | NUR ---
SHIFT SUMMARY PATIENT A&O TO SELF, VERY CONFUSED. DENIES ANY PAIN OR SOB. PATIENT WAS TRYING TO CLIMB OUT OF BED THROUGHOUT THE SHIFT. POSY VEST AND SOFT WRIST RESTRAINTS IN PLACE FOR PATIENT SAFETY. PATIENT REFUSED MORNING MEDICATIONS. RN WAS UNABLE TO REORIENT PATIENT. THIS AFTERNNON PATIENT RESTED SOME. RN REMOVED SOFT WRIST RESTRAINTS, POSY VEST REMAINS IN PLACE FOR PATIENT SAFTEY. RESTAINT ASSESSMENT Q2 HOURS. Q 2 REPOSITION. MEDICATED PER EMAR. CALL LIGHT WITHIN REACH. NO ACUTE CHANGES.
[2018-08-25 04:47] LABS: Magnesium, Blood 1.5 mg/dL (1.6-2.4)
[2018-08-25 04:48] LABS: Anion Gap 8 mmol/L (6-16); Blood Urea Nitrogen 9 mg/dL (8-24); Bun/Creatinine Ratio 14.8 (12.0-20.0); CO2, Blood 28 mmol/L (21-32); Calcium, Blood 8.2 mg/dL (8.5-10.1); Chloride, Blood 99 mmol/L (98-108); Creatinine, Blood 0.61 mg/dL (0.60-1.20); Glomerular Filtration Rate >60 (60-); Glucose, Blood 147 mg/dL (70-99); Potassium, Blood 3.8 mmol/L (3.5-5.5); Sodium, Blood 135 mmol/L (136-145)
--- NOTE | 2018-08-25 05:39 | NUR ---
*SHIFT SUMMARY* PT IS CONFUSED AND ON ROOM AIR. IN LUCIEN VEST RESTRAINT FOR PT SAFETY. PT YELLS OUT AT STAFF SAYING RANDOM THINGS. PT WAS GIVEN SNACKS AND DRINKS THROUGHOUT THE NIGHT. PTS IV WAS REMOVED, IT WAS LEAKING AND THE SITE WAS RED. NEW ORDER FOR NO IV ACCESS NEEEDED. PROTONIX CHANGED TO GRANULES SO THAT PATIENT CAN TAKE IN APPLESAUCE. VITAL SIGNS STABLE. CALL LIGHT IN REACH, BED LOW AND LOCKED WITH ALARM ON.
--- NOTE | 2018-08-25 17:59 | NUR ---
SHIFT SUMMARY PATIENT A&O TO SELF. CONFUSED THIS SHIFT. POSY VEST IN PLACE BECAUSE PATIENT IS A FALL RISK AND WILL TRY TO CLIMB OUT OF BED. DENIES ANY C/O PAIN OR SOB THIS SHIFT. PATIENT HAS A RASH COVERING HIS TORSO, LOWER EXTREMETIES, ROBBIE AREA, AND COCCYX. RN MEDICATED PER Aug. REPOSITIONED Q 2 HOURS. NO ACUTE CHANGES. CALL LIGHT WITHIN REACH.
--- NOTE | 2018-08-26 06:27 | NUR ---
SHIFT SUMMARY PT IN LUCIEN VEST RESTRAINT FOR IMPULSIVENESS AND HIGH FALL RISK. INCONT OF CABALLERO/YELLOW/ORANGE COLORED STOOL X2 AND INCONT OF URINE. NO C/O PAIN. HE SLEPT ON AND OFF T/O NOC. BED ALARM IN USE.
--- NOTE | 2018-08-26 18:31 | NUR ---
SHIFT SUMMARY. PT IS CONFUSED, ALTERING LEVELS OF DISORIENTATION. BED ALARM AND VEST RESTRAINT IN USE SECONDARY TO VERY HIGH FALL RISK. PT DENIES SOB, N/V, AND PAIN. RASH TO GROIN AND BUTTOCKS VERY RED, BED BATH TODAY. NO NEW CHANGES.
--- NOTE | 2018-08-27 06:18 | NUR ---
SHIFT SUMMARY PT STILL NEEDING LUCIEN VEST. CONTINUES TO TRY TO GET OOB HIGH FALL RISK CONFUSED AND AGITATED. GOT ORDER FOR SEROQUEL 25MG FROM DR YING. HE WAS ABLE TO CALM DOWN ENOUGH TO LET US CHANGE HIM AND HE COULD DOZE ON AND OFF T/O NIGHT BUT REMAINED AGITATED WITH CARES AND WANTED TO BE LEFT ALONE. REFUSED LAB DRAWS THIS AM. BED ALARM IN USE
--- NOTE | 2018-08-27 08:46 | NUR ---
THIS AM PT HAS REFUSED AM MEDS, VS, BREAKFAST, AND AM CARE. PER APPLICATION ARCHITECT REPORT PT REFUSED AM LABS. WILL REATTEMPT LATER IN THE AM. PT IS SLEEPING AT THIS TIME.
--- NOTE | 2018-08-27 17:04 | NUR ---
SHIFT SUMMARY. ALERT, VARYING LEVELS OF ORIENTATION AND CONFUSION, MOSTLY ONLY ORIENTATED TO SELF. PT REFUSED CARE IN THE EARLY AM, ALTHOUGH WAS MORE PLEASANT IN THE EARLY AFTERNOON AND ALLOWED FOR CARE. CONTINUES WITH LUCIEN VEST RESTRAINT SECONDARY TO WEAKNESS, UNAWARE OF LIMITATIONS, CONFUSION, IMPULSIVENESS. NO PAIN, SOB, N/V. POOR PO INTAKE/APPETITE.
--- NOTE | 2018-08-28 05:42 | NUR ---
SHIFT SUMMARY PT CONFUSED BUT REORIENTABLE. STILL LUICEN VEST NEEDED FOR HIGH FALL RISK AND IMPULSIVENESS C CONFUSION. INCONT OF URINE. CALLS OUT FOR HIS NEEDS AT TIMES. BED ALARM IN USE
--- NOTE | 2018-08-28 18:20 | NUR ---
SHIFT SUMMARY] PT AXO TO SELF, PLACE, TIME BUT CONFUSED AT TIMES. PT AGGITATED AND ANGRY AT TIMES DEMANDING TO BE OUT OF RESTRAINTS. NURSE EDUCATED PT ABOUT THE INDICATION FOR LUCIEN BUT PT WAS AGGITATED AND DIDN'T EXHIBIT UNDERSTANDING. PT REFUSED MORNING MEDICATIONS AND REFUSED TO GET UP TO CHAIR. BED IN LOW POSITION CALL LIGHT WITHIN REACH. PT CONTINUES TO URINATE OFF SIDE OF BED, ONTO FLOOR INSTEAD OF CALLING WHEN THE NEED ARISES.
--- NOTE | 2018-08-29 06:29 | NUR ---
SHIFT SUMMARY: PT CONT TO BE IN LUCIEN VEST FOR IMPULSIVITY AND FALL RISK. ALERT TO SELF, PLACE, FOLLOW DIRECTIONS. PT IS AGITATED AND IRRITABLE, BUT CALM AND COOPERATIVE TONIGHT. NECTAR THICK LIQUIDS, MECH SOFT DIET, SUPERVISION FOR ALL MEALS. MEDS CRUSHED IN NECTAR THICK MURTAZA MIST PER PT REQUEST. ROBBIE AREA RED/INFLAMMED/SWOLLEN; NYSTATIN PER ORDERS; MEPILEX TO COCCYX. NO IV ACCESS. PT IS AWAITING PLACEMENT. WILL CONT TO MONITOR AND PROVIDE CARE UNTIL PRESUMED BY ONCOMING RN.
[2018-08-29 11:17] LABS: Hematocrit 33.7 % (37.0-53.0); Hemoglobin 11.3 g/dL (13.5-17.5); Mean Corpuscular HGB 34.9 pg (26.0-34.0); Mean Corpuscular HGB Conc 33.5 g/dL (31.5-36.5); Platelet Count 161 K/mm3 (150-400); RDW Coefficient Variation 16.1 % (11.7-14.2); RDW Standard Deviation 61.5 fL (35.1-46.3); Red Blood Cell Count 3.24 M/mm3 (4.30-5.90); White Blood Cell Count 7.99 K/mm3 (4.00-11.30)
[2018-08-29 11:18] LABS: Mean Corpuscular Volume 104 fL (80-100)
[2018-08-29 11:55] LABS: Anion Gap 5 mmol/L (6-16); Blood Urea Nitrogen 6 mg/dL (8-24); Bun/Creatinine Ratio 11.1 (12.0-20.0); CO2, Blood 30 mmol/L (21-32); Calcium, Blood 8.6 mg/dL (8.5-10.1); Chloride, Blood 98 mmol/L (98-108); Creatinine, Blood 0.54 mg/dL (0.60-1.20); Glomerular Filtration Rate >60 (60-); Glucose, Blood 128 mg/dL (70-99); Potassium, Blood 3.8 mmol/L (3.5-5.5); Sodium, Blood 133 mmol/L (136-145)
--- NOTE | 2018-08-29 16:35 | NUR ---
MORNING MEDS LATE PATIENT REFUSED MEDS THIS MORNING. I ADMINISTERED MEDS AT THE EARILEST TIME POSSIBLE WITH PATIENTS COOPERATION.
--- NOTE | 2018-08-29 16:36 | NUR ---
RESTRAINTS REMOVED AT 1100 08/29
--- NOTE | 2018-08-29 16:41 | NUR ---
SHIFT SUMMARY PATIENT SLEPT MOST OF THE DAY. HE WAS NOT COOPERATIVE FOR EATING OR DRINKING OR TAKING MEDS BUT HAS NOT ATTEMPTED TO GET OUT OF BED THEREFORE RESTRAINT WAS REMOVED AT 11 AM 08/29. INCONTINENT. PATIENT DID NOT TOLERATE CONDOM CATHETER HE REMOVED IT HIMSELF AFTER ABOUT 1 HOUR OF HAVING IT ON. NOT ORIENTED TO PLACE, DAY, EVENT OR TIME
--- NOTE | 2018-08-30 06:22 | NUR ---
SHIFT SUMMARY: PT CONT TO BE OUT OF LUCIEN AND TOLERATING WELL. PT IS NOT IMPULSIVE TONIGHT, CALLS OUT TO STAFF TO MAKE NEEDS KNOWN. SEVERAL EPISODES OF INCONTINENCE TONIGHT; NYSTATIN CREAM APPLIED TO ROBBIE AREA PER ORDERS. DENIES PAIN/SOB/ANXIETY. NO ACUTE CHANGES TONIGHT, PT CONT TO WAIT FOR PLACEMENT. WILL CONT TO MONITOR AND PROVIDE CARE UNTIL PRESUMED BY ONCOMING RN.
--- NOTE | 2018-08-30 12:09 | NUR ---
PT IS ALERT AND COOPERATIVE WITH CARE. HE IS ORIENTED TO SELF AND PLACE. HE HAS HAD VISUAL HALUCINATIONS TODAY. HE IS UP IN BED AT 90 DEGREES FOR BREAKFAST AND LUNCH. PT WAS OFFERED ASSISTANCE OUT OF BED WITH A LIFT FOR LUNCH, HE REFUSED AND ASKED THAT WAIT UNTIL LATER. PT RECIEVED A BEDBATH TODAY. WILL CONTINUE TO MONITOR.
--- NOTE | 2018-08-30 16:53 | NUR ---
THIS PATIENT IS ALERT AND ORIENTED TO SELF AND PLACE. HE WAS HALLUCINATING THIS MONRING. THE REDNESS ON HIS BUTTOCKS HAS WORSENED AND TREATED A YEAST INFECTION, NYSTATIN APPLIED. PT MOVES HIMSELF AROUND IN BED. NO ACUTE CHANGES THIS SHIFT. WILL CONTINUE TO MONITOR.
--- NOTE | 2018-08-31 06:19 | NUR ---
SHIFT SUMMARY PT NOT NEEDING RESTRAINTS. HAS NOT TRIED TO GET OOB. HAS BEEN CALM AND COOPERATIVE ALL NIGHT. INCONT OF URINE. BED ALARM IN USE FOR SAFETY. HE WAS ABLE TO SLEEP T/O NOC. CALLS OUT WHEN HE WANTS SOMETHING.
--- NOTE | 2018-08-31 18:12 | NUR ---
SHIFT SUMMARY PT IN BED ALL DAY. DID ATTEMPT TO CLIMB OOB ONCE AND WAS INFORMED WE WOULD BE GLAD TO GET HIM UP WITH LIFT AND HE CHANGED HIS MIND AND REFUSED TO GET UP AFTER THAT. FATHER HERE TO SEE PT TODAY. HAS DENIED PAIN OR DISTRESS TODAY.
--- NOTE | 2018-09-01 06:10 | NUR ---
SHIFT SUMMARY PT CALM AND COOPERATIVE. INCONT OF URINE AND CHANGED Q2HR AND PRN. CALLS OUT FOR SODA NOW AND THEN. HE WAS ABLE TO DOZE ON AND OFF T/O NIGHT. CALL LIGHT IN REACH. BED ALARM IN USE.
--- NOTE | 2018-09-01 16:03 | NUR ---
SHIFT SUMMARY. A&OX2, VARYING LEVELS OF CONFUSION. PT HAS NOT ATTEMPTED TO GET OOB WITHOUT ASSISTANCE THIS SHIFT, BED ALARM ON FOR SAFETY. PT DENIES PAIN, SOB, N/V. PO INTAKE FAIR AT MEAL TIMES WITH FEEDING ASSISTANCE OF GRAIN MIXER. RASH CONTINUES TO IMPROVE. NO NEW CHANGES OR CONCERNS.
--- NOTE | 2018-09-02 06:43 | NUR ---
SHIFT SUMMARY: PT IS ALERT AND ORIENTED TO SELF AND FOLLOWING DIRECTIONS. PT IS CALM AND COOPERATIVE WITH CARE. PT DOES NOT USE HIS CALL LIGHT, CALLS OUT VERBALLY FOR ASSISTANCE. PT INCONTINENT OVERNIGHT, CHANGED AND CLEANED NEEDED. PT DENIES PAIN, NAUSEA, VOMITING, AND SOB. AWAITING PLACEMENT. NO ACUTE CHANGES OR COMPLICATIONS THIS SHIFT. BED IN LOW POSITION, CALL LIGHT WITHIN REACH.
--- NOTE | 2018-09-02 15:58 | NUR ---
SUMMARY PT CONTINUES WEAK/FATIGUED/FRAIL. HE DOES NOT ATTEMPT TO GET OUT OF BED. HE ANSWERS SIMPLE QUESTIONS APPROP HOWEVER DEMONSTRATES CONFUSION/DISORIENTATION @ X'S, DOES NOT USE CALL SYSTEM, YELLS OUT FOR ASSIST. @ X'S TAKES DOWN ATTENDS & URINATES IN BED. HX ETOH DEMENTIA. HE IS ABLE TO FEED HIMSELF W SUPERVISION, NEEDS ASSIST W FLUIDS. HE HAS RED RASH ROBBIE AREA, PATCHES ON ARMS & LEGS, BACK. STATE RASH COMES & GOES X 6 WEEKS, STATE ITCHES. WE HAVE BEEN CIVERING W NYSTATIN CREAM. DR WHITTEN NOTIFIED, IN TO ASSESS, ORDER BENADRYL CREAM. VSS. AWAITING VENKAT CHAPARRO TODAY, STATE WILL SEE HIM THIS AFTERNOON.
[2018-09-03 04:23] LABS: BASOPHILS ABSOLUTE AUTO 0.02 K/mm3 (0.00-0.23); BASOPHILS PERCENT AUTO 0 % (0-2); EOSINOPHILS ABSOLUTE AUTO 0.17 K/mm3 (0.00-0.68); EOSINOPHILS PERCENT AUTO 2 % (0-6); Hemoglobin 11.2 g/dL (13.5-17.5); IMMATURE GRAN ABSOLUTE AUTO 0.03 K/mm3 (0.00-0.10); IMMATURE GRAN PERCENT AUTO 0 % (0-1); LYMPHOCYTES ABSOLUTE AUTO 1.11 K/mm3 (0.84-5.20); LYMPHOCYTES PERCENT AUTO 13 % (21-46); MONOCYTES ABSOLUTE AUTO 1.03 K/mm3 (0.16-1.47); MONOCYTES PERCENT AUTO 12 % (4-13); Mean Corpuscular HGB 34.4 pg (26.0-34.0); Mean Corpuscular HGB Conc 32.9 g/dL (31.5-36.5); Mean Corpuscular Volume 104 fL (80-100); Mean Platelet Volume 11.4 fL (9.1-12.4); NEUTROPHILS ABSOLUTE AUTO 6.14 K/mm3 (1.96-9.15); NEUTROPHILS PERCENT AUTO 72 % (41-73); Platelet Count 200 K/mm3 (150-400); RDW Coefficient Variation 15.4 % (11.7-14.2); RDW Standard Deviation 59.2 fL (35.1-46.3); Red Blood Cell Count 3.26 M/mm3 (4.30-5.90)
--- NOTE | 2018-09-03 04:35 | NUR ---
SHIFT SUMMARY: PT IS ALERT AND ORIENTED X 2. PT IS CALM AND COOPERATIVE WITH CARE MOST OF THE TIME. PT REMAINS A MAX ASSIST, NOT OUT OF BED OVERNIGHT. PT CONTINUES TO NOT USE HIS CALL LIGHT, WILL CALL OUT VERBALLY. PT INCONTINENT SEVERAL TIMES, CHANGED AND CLEANED NEEDED. PT DENIES PAIN, NAUSEA, VOMITING, AND SOB. AWAITING PLACEMENT. WILL REPORT TO DAY NURSE.
[2018-09-03 04:47] LABS: Albumin, Blood 2.5 g/dL (3.4-5.0); Anion Gap 7 mmol/L (6-16); Blood Urea Nitrogen 9 mg/dL (8-24); Bun/Creatinine Ratio 13.9 (12.0-20.0); CO2, Blood 29 mmol/L (21-32); Calcium, Blood 8.8 mg/dL (8.5-10.1); Chloride, Blood 96 mmol/L (98-108); Creatinine, Blood 0.65 mg/dL (0.60-1.20); Glomerular Filtration Rate >60 (60-); Glucose, Blood 96 mg/dL (70-99); Phosphorus, Blood 3.6 mg/dL (2.5-4.9); Potassium, Blood 4.1 mmol/L (3.5-5.5); Sodium, Blood 132 mmol/L (136-145)
--- NOTE | 2018-09-03 16:28 | NUR ---
SUMMARY PT CONTINUES WEAK/FATIGUED, REQUESTS TO STAY IN BED. HE IS ABLE TO SIT UP ON BEDSIDE WITH SOME ASSIST & HOLD HIMSELF UP, HE IS UNABLE TO STAND ON HIS OWN, 1-2 ASSIST TO BR WT & STAND/PIVOT TO RECLINER. HE WOULD ONLY STAY UP IN CHAIR FOR LESS THAN 1/2 HR THEN YELLING OUT FOR HELP BACK TO BED. PO INTAKE ENCOURAGED WITH ASSIST, FLUIDS THICKENED & SPOON FED OR SUPERVISED SM SIPS. MENTATION CONTINUES SOMEWHAT SLOW, OCCASIONALLY MAKES BIZARRE STATEMENTS. [employer] INVOLVED WITH PLACEMENT/SAFE D/C ISSUES. VSS.
--- NOTE | 2018-09-04 04:53 | NUR ---
SHIFT SUMMARY: PT IS ALERT AND ORIENTED X 2. PT IS CALM AND COOPERATIVE WITH CARE. PT DOES NOT USE HIS CALL LIGHT. PT IS A MAX ASSIST FOR TRANSFERS. PT INCONTINENT SEVERAL TIMES OVERNIGHT, CHANGED AND CLEANED NEEDED. PT DENIES PAIN, NAUSEA, VOMITING, AND SOB. OINTMENT APPLIED TO RASH. AWAITING PLACEMENT. NO ACUTE CHANGES OVERNIGHT.
--- NOTE | 2018-09-04 17:31 | NUR ---
SHIFT SUMMARY- PT AXO X2. PT CONFUSED. PT IRRITABLE AT TIMES. BED ALARM ON. CALL LIGHT IN REACH. PT DENIES PAIN. DENIES SOB. RESP E/U ON RA. DENIES N/V. PT/OT IN TO WORK WITH PT. PT UP IN CHAIR FOR MEALS. 2 ASSIST WITH GAIT BELT AND FWW TO CHAIR. NYSTATIN CREAM APPLIED TO RASH PER EMAR. NO OTHER SIGNIFICANT CHANGES THIS SHIFT.
--- NOTE | 2018-09-05 07:25 | NUR ---
09/05/18 0615 PT WAS INCONTINENT OF STOOL IN ATTENDS AND REMOVED IT ALONG WITH SOILED LINEN AND THREW THEM ON THE FLOOR. BEDBATH AND ENTIRE LINEN CHANGED. HOUSEKEEPING TO CLEAN FLOOR. INSTRUCTED PT NOT TO REMOVE SOILED ITEMS AND JUST CALL AND STAFF WILL TAKE CARE OF THIS PROBLEM. VITALS STABLE.
--- NOTE | 2018-09-05 17:28 | NUR ---
PATIENT TO DISCHARGE TO FACILITY TODAY BUT HAD INSURANCE ISSUES SO HIS DISCHARGE WAS DELAYED. NO CHANGES TO CONDITION. NO ISSUES THIS SHIFT WITH PATIENT.
--- NOTE | 2018-09-06 06:19 | NUR ---
09/05/18 0600 SITTING UP WATCHING TV. NO COMPLAINTS. VITALS STABLE. REPOSITIONED Q 2 HOURS WITH ORAL AND ROBBIE-CARE GIVEN. RASH UNCHANGED FROM YESTERDAY.
--- NOTE | 2018-09-06 19:14 | NUR ---
SHIFT SUMMARY WITHDRAWN BUT OX2. DISORIENTED TO TIME. EATING AND DRINKING WELL. INCONTINENT OF URINE. BM TODAY USING BEDPAN. DENIES ANY PAIN. COOPERATIVE, QUIET.
--- NOTE | 2018-09-07 03:43 | NUR ---
SHIFT SUMMARY: PT IS ALERT AND ORIENTED X 2. PT IS CALM AND COOPERATIVE WITH CARE. PT USES HIS CALL LIGHT INTERMITTENTLY. PT IS A TWO PERSON ASSIST FOR TRANSFERS, NOT OUT OF BED OVERNIGHT. PT DENIES PAIN, NAUSEA, VOMITING, AND SOB. AWAITING PLACEMENT. PT INCONTINENT SEVERAL TIMES OVERNIGHT, CHANGED AND CLEANED NEEDED. NO ACUTE CHANGES OR COMPLICATIONS. BED IN LOW POSITION, CALL LIGHT WITHIN REACH, BED ALARM SET.
--- NOTE | 2018-09-07 18:07 | NUR ---
SHIFT SUMMARY PT AXO TO SELF, PLACE AND FOLLOWING DIRECTIONS. PT HYPOTENSIVE THOUGH THIS APPEARS TO BE WNL FOR HIM. DR WHITTEN CONFIRMED THAT NURSE SHOULD GIVE MORNING MEDICATIONS WITH PT BP OF 100/80 THIS MORNING. PT REFUSED TO BE UP TO CHAIR FOR MEALS. PT WAS UP TO CHAIR WITH PHYSICAL THERAPY FOR LUNCH BUT TOLERATED POORLY AND REPEATEDLY REQUESTED TO BE ASSISTED BACK TO BED. NO ACUTE CHANGES THIS SHIFT. PATIENT'S FATHER SPOKE TO HUSSAIN CHAPPELL THIS SHIFT. BED IN LOW POSITION, CALL LIGHT WITHIN REACH.
--- NOTE | 2018-09-08 05:46 | NUR ---
SHIFT SUMMARY: PT'S MENTATION HAS NOT CHANGED. PT CONTINUES TO BE INCONTINENT, LINEN CHANGES NEEDED. PT TOLERATING THICKENED BEVERAGED AND SNACKS. PT DENIES PAIN, NAUSEA, VOMITING, AND SOB. AWAITING PLACEMENT. NO ACUTE CHANGES OR COMPLICATIONS OVERNIGHT. WILL REPORT TO DAY NURSE.
--- NOTE | 2018-09-08 17:20 | NUR ---
SHIFT SUMMARY PATIENT A&O X2. COOPERATIVE WITH CARE. 2 PA FOR TRANSFERS. REFUSES TO GET UP TO THE CHAIR THIS SHIFT. DENIES ANY PAIN, SOB, OR NAUSEA. USES URINAL APPROPRIATELY, INCONTINENT AT TIMES. RESTED THROUGHOUT THE SHIFT. NO ACUTE CHANGES. BED IN LOWEST POSITION, CALL LIGHT WITHIN REACH. RN WILL CONTINUE TO MONITOR.
[2018-09-09 05:03] LABS: Hematocrit 33.8 % (37.0-53.0); Hemoglobin 10.7 g/dL (13.5-17.5); Mean Corpuscular HGB 33.4 pg (26.0-34.0); Mean Corpuscular HGB Conc 31.7 g/dL (31.5-36.5); Mean Corpuscular Volume 106 fL (80-100); Mean Platelet Volume 11.2 fL (9.1-12.4); Platelet Count 173 K/mm3 (150-400); RDW Coefficient Variation 15.2 % (11.7-14.2); RDW Standard Deviation 59.2 fL (35.1-46.3)
[2018-09-09 05:22] LABS: Albumin, Blood 2.7 g/dL (3.4-5.0); Anion Gap 5 mmol/L (6-16); Blood Urea Nitrogen 13 mg/dL (8-24); Bun/Creatinine Ratio 17.4 (12.0-20.0); CO2, Blood 29 mmol/L (21-32); Calcium, Blood 9.2 mg/dL (8.5-10.1); Chloride, Blood 99 mmol/L (98-108); Creatinine, Blood 0.75 mg/dL (0.60-1.20); Glomerular Filtration Rate >60 (60-); Glucose, Blood 141 mg/dL (70-99); Phosphorus, Blood 3.5 mg/dL (2.5-4.9); Potassium, Blood 4.5 mmol/L (3.5-5.5); Sodium, Blood 133 mmol/L (136-145)
--- NOTE | 2018-09-09 06:21 | NUR ---
SHIFT SUMMARY PT CALM AND COOPERATIVE C CARE. BEEN INCONT OF URINE. HE WAS ABLE TO SLEEP T/O NOC. BED ALARM IN USE. CALLS OUT OCCASIONALLY.
--- NOTE | 2018-09-09 18:21 | NUR ---
PT WAITING FOR PLACEMENT, PLAN IS FOR DISCHARGE TO [facility] ON TUESDAY. NO ACUTE CHANGES NOTED THIS SHIFT, WILL CONTINUE TO MONITOR AND REPORT TO ONCOMING RN
--- NOTE | 2018-09-10 06:04 | NUR ---
SHIFT SUMMARY PT CALM PLEASANT AND COOPERATIVE. USING URINAL BUT STILL IS INCONT SOMETIMES OR DELIBERATELY URINATES IN BED. USED BED GUZMAN FOR BM. USING CALL LIGHT APPROPRIATELY. HAS NOT ATTEMPTED TO GET OOB. CALL LIGHT IS IN REACH.
--- NOTE | 2018-09-10 18:39 | NUR ---
PT TO BE DISCHARGED TO [facility] TOMORROW. PER DISCHARGE HOME HEALTH PHYSICAL THERAPIST PT HAS A BED WAITING FOR HIM. NO ACUTE CHANGES NOTED THIS SHIFT. WILL CONTINUE TO MONITOR AND REPORT TO ONCOMING RN
--- NOTE | 2018-09-11 06:03 | NUR ---
SHIFT SUMMARY NO CHANGES FOR HIM. BEEN CALM PLEASANT AND COOPERATIVE. USING URINAL. HAS NOT GOT OOB. SLEPT ON AND OFF T/O NOC. USING CALL LIGHT.
[2018-09-11] MEDS ORDERED: METO25ER PO (11:46)
[2018-09-11] MEDS ORDERED: ACET325 PO (11:47)
[2018-09-11] MEDS ORDERED: ALBU2.5V5 NEB (11:48)
[2018-09-11] MEDS ORDERED: BISA10S PR (11:49)
[2018-09-11] MEDS ORDERED: Benadryl Itch28.3 GM TOP (11:53)
[2018-09-11] MEDS ORDERED: NYSTRITC TOP (11:54)
[2018-09-11] MEDS ORDERED: OMEPRAZOLE20 MG PO (11:56)
[2018-09-11] MEDS ORDERED: GAVILAX17 GM PO (11:57)
[2018-09-11] MEDS ORDERED: SPIR50 PO (11:58)
[2018-09-11] MEDS ORDERED: Hair, Skin & N1 EACH PO (11:59)
--- NOTE | 2018-09-11 17:18 | NUR ---
PATIENT TRANSFER THE PATIENT WAS TRANSFERRED TO [facility]. REPORT WAS CALLED TO NURSE LAI OF [facility] AT 1355. THE PATIENT LEFT THE HOSPITAL VIA WHEEL CHAIR AND AMBULANCE.
== END 2018-09-11 17:03 | DRG 432 ==
LOC: DELPENDDIS → ER 08:30 → ERHOLD 11:43 → MEDS 11:43 → ENPENDDIS 09-05 09:30 → MEDS 09-11 17:03
PROVIDERS: Emergency Medicine; Hospitalist; Internal Medicine; ADMIT Hospitalist
PROC: 30233N1 Transfusion of Nonautologous Red Blood Cells into Peripheral Vein, Percutaneous Approach (ICD-10-PCS; principal; 2018-08-13)
DX: K70.40 Alcoholic hepatic failure without coma (principal); J69.0 Pneumonitis due to inhalation of food and vomit; E43 Unspecified severe protein-calorie malnutrition; F10.230 Alcohol dependence with withdrawal, uncomplicated; E87.1 Hypo-osmolality and hyponatremia; G72.1 Alcoholic myopathy; J44.1 Chronic obstructive pulmonary disease with (acute) exacerbation; R18.8 Other ascites; F03.90 Unspecified dementia, unspecified severity, without behavioral disturbance, psychotic disturbance, mood disturbance, and anxiety; D53.9 Nutritional anemia, unspecified; G62.9 Polyneuropathy, unspecified; R13.10 Dysphagia, unspecified; E83.42 Hypomagnesemia; E83.51 Hypocalcemia; R26.9 Unspecified abnormalities of gait and mobility; J40 Bronchitis, not specified as acute or chronic; R53.81 Other malaise; R62.7 Adult failure to thrive
CPT/HCPCS: 36415; 71046; 74230; 76700; 80048; 80053; 80069; 81001; 82105; 82140; 82248; 82270; 82272; 82550; 82607; 82728; 82746; 82947; 83540; 83550; 83690; 83735; 83880; 84100; 84439; 84443; 84484; 85014; 85018; 85025; 85027; 85045; 86317; 86704; 86708; 86803; 86850; 86900; 86901; 86923; 87040; 87077; 87086; 87186; 87340; 92526; 92610; 92611; 93005; 93010; 94640; 94760; 96361; 96365; 96366; 96367; 96375; 97110; 97162; 97164; 97166; 97168; 97530; 97535; 99285-25; C9113; G0480; J0610; J1940; J2060; J2405; J2543; J3475; J3480; J7030; J7050; J7060; P9016

== ENCOUNTER 2020-10-14 13:49 | Inpatient (IN) | payer MEDICARE ==
[~2020-10-14] VITALS: Ht 180.3 cm; Wt 62.2 kg
[~2020-10-14 13:49] MED LIST changes: +ACET325 PO; +ALBU2.5V5 NEB; +BISA10S PR; +Benadryl Itch28.3 GM TOP; +GAVILAX17 GM PO; +Hair, Skin & N1 EACH PO; +METO25ER PO; +NYSTRITC TOP; +OMEPRAZOLE20 MG PO; +SPIR50 PO
[2020-10-14 14:51] LABS: BASOPHILS ABSOLUTE AUTO 0.01 K/mm3 (0.00-0.23); BASOPHILS PERCENT AUTO 0 % (0-2); EOSINOPHILS ABSOLUTE AUTO 0.01 K/mm3 (0.00-0.68); EOSINOPHILS PERCENT AUTO 0 % (0-6); Hematocrit 26.6 % (37.0-53.0); IMMATURE GRAN ABSOLUTE AUTO 0.04 K/mm3 (0.00-0.10); IMMATURE GRAN PERCENT AUTO 1 % (0-1); LYMPHOCYTES ABSOLUTE AUTO 0.67 K/mm3 (0.84-5.20); LYMPHOCYTES PERCENT AUTO 9 % (21-46); MONOCYTES ABSOLUTE AUTO 0.77 K/mm3 (0.16-1.47); MONOCYTES PERCENT AUTO 10 % (4-13); Mean Corpuscular Volume 107 fL (80-100); Mean Platelet Volume 11.6 fL (9.1-12.4); NEUTROPHILS ABSOLUTE AUTO 6.19 K/mm3 (1.96-9.15); NEUTROPHILS PERCENT AUTO 81 % (41-73); Platelet Count 103 K/mm3 (150-400); RDW Coefficient Variation 11.9 % (11.7-14.2); RDW Standard Deviation 46.3 fL (35.1-46.3); Red Blood Cell Count 2.48 M/mm3 (4.30-5.90); White Blood Cell Count 7.69 K/mm3 (4.00-11.30)
[2020-10-14 14:57] LABS: Hemoglobin 10.2 g/dL (13.5-17.5); Mean Corpuscular HGB 41.1 pg (26.0-34.0); Mean Corpuscular HGB Conc 38.3 g/dL (31.5-36.5)
[2020-10-14 15:15] LABS: Alanine Aminotransfer (ALT/SGP 38 U/L (12-78); Albumin, Blood 2.7 g/dL (3.4-5.0); Albumin/Globulin Ratio 0.8 (0.8-1.8); Alk Phos 86 U/L (50-136); Anion Gap 10 mmol/L (6-16); Aspartate Aminotrans (AST/SGOT 54 U/L (12-37); Bilirubin, Total 2.3 mg/dL (0.1-1.0); Blood Urea Nitrogen 9 mg/dL (8-24); Bun/Creatinine Ratio 16.6 (12.0-20.0); CO2, Blood 38 mmol/L (21-32); Calcium, Blood 6.6 mg/dL (8.5-10.1); Chloride, Blood 80 mmol/L (98-108); Creatinine, Blood 0.54 mg/dL (0.60-1.20); Globulin, Blood 3.5 g/dL (2.2-4.0); Glomerular Filtration Rate >60 (60-); Glucose, Blood 83 mg/dL (70-99); Magnesium, Blood 0.6 mg/dL (1.6-2.4); Potassium, Blood 1.7 mmol/L (3.5-5.5); Sodium, Blood 128 mmol/L (136-145); Total Protein, Blood 6.2 g/dL (6.4-8.2)
[2020-10-14 19:23] LABS: Source, Urine Voided
[2020-10-14 19:38] LABS: Appearance, Urine Clear (Clear); Blood, Urine Neg (Neg); Color, Urine Amber (P-Yellow); Glucose Qualitative, Urine Neg (Neg); Ketones, Urine 2+ (Neg); Leukocyte Esterase, Urine 1+ (Neg); Nitrite, Urine Neg (Neg); Protein, Urine 1+ (Neg); Specific Gravity, Urine 1.005 (1.003-1.022); Urobilinogen, Urine 4+ (Normal)
[2020-10-14 19:41] LABS: Bilirubin, Urine 1+ (Neg)
[2020-10-14 19:48] LABS: Amorphous Light (0-Heavy); Bacteria Few /hpf; Mucus Light (0-Heavy); Red Blood Cells, Urine 0-2 /hpf (0-2); Squamous Epithelial Cells Few /hpf (Few); Uric Acid Crystals Few /hpf
[2020-10-14 19:49] LABS: U Amphetamine Screen Not Detected; U Barbituate Screen Not Detected; U Benzodiazapine Screen Not Detected; U Buprenorphine Screen Not Detected; U Cannabinoids Screen DETECTED; U Cocaine Screen Not Detected; U Methadone Screen Not Detected; U Methamphetamine Screen Not Detected; U Opiates Screen Not Detected; U Oxycodone Screen Not Detected; U Phencyclidine Screen Not Detected; U Propoxyphene Screen Not Detected
[2020-10-14 23:47] LABS: SARS-Cov-2 (COVID-19) PCR, MMC NEGATIVE (NEGATIVE)
[2020-10-15 07:02] LABS: Hematocrit 23.7 % (37.0-53.0); Hemoglobin 8.6 g/dL (13.5-17.5); Mean Corpuscular HGB 40.6 pg (26.0-34.0); Mean Corpuscular HGB Conc 36.3 g/dL (31.5-36.5); Mean Platelet Volume 11.7 fL (9.1-12.4); Platelet Count 77 K/mm3 (150-400); RDW Coefficient Variation 11.9 % (11.7-14.2); Red Blood Cell Count 2.12 M/mm3 (4.30-5.90); White Blood Cell Count 5.07 K/mm3 (4.00-11.30)
[2020-10-15 07:12] LABS: Mean Corpuscular Volume 112 fL (80-100)
[2020-10-15 08:23] LABS: Anion Gap 7 mmol/L (6-16); Blood Urea Nitrogen 9 mg/dL (8-24); Bun/Creatinine Ratio 15.3 (12.0-20.0); CO2, Blood 33 mmol/L (21-32); Chloride, Blood 90 mmol/L (98-108); Creatinine, Blood 0.59 mg/dL (0.60-1.20); Glomerular Filtration Rate >60 (60-); Glucose, Blood 143 mg/dL (70-99); Potassium, Blood 2.7 mmol/L (3.5-5.5); Sodium, Blood 130 mmol/L (136-145)
[2020-10-15 08:25] LABS: Calcium, Blood 5.9 mg/dL (8.5-10.1)
[2020-10-15 17:50] LABS: Magnesium, Blood 1.5 mg/dL (1.6-2.4); Potassium, Blood 3.4 mmol/L (3.5-5.5)
--- NOTE | 2020-10-15 17:56 | NUR ---
SHIFT SUMMARY PT ALERT AND ORIENTED. VS STABLE. O2 SATS REMAIN ABOVE 90% ON RA. PT DENIES ANY PAIN. PT DID HAVE LOOSE BM THIS SHIFT, BUT DID NOT HAVE ANY NAUSEA OR VOMITING. POTASSIUM, MAG, AND CALCIUM REPLACED THIS SHIFT. NS INFUSING PER ORDERS. PT WAS ANGRY THIS AFTERNOON THAT HIS EGD WAS DELAYED AND HE ENDED UP REFUSING IT BECAUSE HE WANTED TO EAT. DR. AGUILAR NOTIFIED WELL DR. YING. PT EATING DINNER AT THIS TIME. WILL CONTINUE TO MONITOR AND REPORT TO ONCOMING RN. CALL LIGHT IN REACH.
[2020-10-16 04:58] LABS: BASOPHILS ABSOLUTE AUTO 0.02 K/mm3 (0.00-0.23); BASOPHILS PERCENT AUTO 0 % (0-2); EOSINOPHILS ABSOLUTE AUTO 0.01 K/mm3 (0.00-0.68); EOSINOPHILS PERCENT AUTO 0 % (0-6); Hematocrit 23.8 % (37.0-53.0); Hemoglobin 8.7 g/dL (13.5-17.5); IMMATURE GRAN ABSOLUTE AUTO 0.04 K/mm3 (0.00-0.10); IMMATURE GRAN PERCENT AUTO 1 % (0-1); LYMPHOCYTES ABSOLUTE AUTO 0.58 K/mm3 (0.84-5.20); LYMPHOCYTES PERCENT AUTO 11 % (21-46); MONOCYTES ABSOLUTE AUTO 0.53 K/mm3 (0.16-1.47); MONOCYTES PERCENT AUTO 10 % (4-13); Mean Corpuscular HGB 41.2 pg (26.0-34.0); Mean Corpuscular HGB Conc 36.6 g/dL (31.5-36.5); Mean Corpuscular Volume 113 fL (80-100); Mean Platelet Volume 11.2 fL (9.1-12.4); NEUTROPHILS ABSOLUTE AUTO 4.09 K/mm3 (1.96-9.15); NEUTROPHILS PERCENT AUTO 78 % (41-73); Platelet Count 77 K/mm3 (150-400); RDW Coefficient Variation 12.1 % (11.7-14.2); RDW Standard Deviation 49.8 fL (35.1-46.3); Red Blood Cell Count 2.11 M/mm3 (4.30-5.90); White Blood Cell Count 5.27 K/mm3 (4.00-11.30)
[2020-10-16 05:19] LABS: Anion Gap 6 mmol/L (6-16); Blood Urea Nitrogen 7 mg/dL (8-24); Bun/Creatinine Ratio 12.9 (12.0-20.0); CO2, Blood 28 mmol/L (21-32); Calcium, Blood 6.3 mg/dL (8.5-10.1); Chloride, Blood 96 mmol/L (98-108); Creatinine, Blood 0.54 mg/dL (0.60-1.20); Glomerular Filtration Rate >60 (60-); Glucose, Blood 115 mg/dL (70-99); Magnesium, Blood 1.6 mg/dL (1.6-2.4); Potassium, Blood 3.7 mmol/L (3.5-5.5); Sodium, Blood 130 mmol/L (136-145)
--- NOTE | 2020-10-16 06:36 | NUR ---
SHIFT SUMMARY NO ACUTE CHANGES THIS SHIFT. PT A&OX4, IRRITABLE. SP02>90% ON RA. TELEMETRY READS ST, HR 100'S. PT INCONTIENT OF BOWEL, ATTENDS AND LINEN CHANGE X3 THIS SHIFT. C/D ATTENDS IN PLACE. PT USED URINAL AT BEDSIDE. PT C/O HE WAS UNABLE TO SLEEP D/T PT'S IN OTHER ROOMS COUGHING. PT CURRENTLY NPO FOR AM PROCEDURE. FLUIDS INFUSED PER EMAR. CALL LIGHT IN REACH. WILL GIVE REPORT TO ONCOMING NURSE.
--- NOTE | 2020-10-16 07:12 | NUR ---
INTO SDS ADMISSION TO UNIT STARTED PATIENT QUIET
--- NOTE | 2020-10-16 07:36 | NUR ---
10/16/20 0736 Justin Beard PATIENT DETERMINED TO BE ASA APPROPRIATE FOR PROPOFOL SEDATION PRIOR TO START OF PROCEDURE BY DR. AGUILAR Bite Block Placed. 3-LEAD EKG REVIEWED WITH PHYSICIAN PRIOR TO START OF PROCEDURE. Patient to ENDO 1. MONITOR INTACT WITH CONTINUOUS PULSE OXIMETRY AND INTERMITTENT BP. O2 VIA N/C INTACT THROUGHOUT SEDATION/PROCEDURE.
--- NOTE | 2020-10-16 07:48 | NUR ---
Pt taken to day surgery for scope at 0705
--- NOTE | 2020-10-16 08:08 | NUR ---
Pt returned after scope; Cassandra gave bedside report after pt transferred from stretcher to bed. Pt is awake, has no complaints; when asked how he is feeling, he states that he is tired. Lights dimmed after vital signs taken. He appears calm, comfortable.
--- NOTE | 2020-10-16 08:16 | NUR ---
Call from Dr. Antonio asking if pt had the scope this am. Reported pt's condition and also reviewed lab work. New order received for 2 g MG
--- NOTE | 2020-10-16 09:13 | NUR ---
Pt appears to be resting comfortably; vs stable, awakens easily and has no complaints voiced at this time. Magnesium IVPB infusing.
[2020-10-16] MEDS ORDERED: Acetaminophen325 M1 PO ×2 (11:26)
[2020-10-16] MEDS ORDERED: MELATONIN5 M1 PO ×2 (11:28)
[2020-10-16] MEDS ORDERED: OMEP20ER PO ×2 (11:36)
--- NOTE | 2020-10-16 12:43 | NUR ---
Pt is irritable. Told charge histotechnologist that he didn't want a wheelchair transfer transport to go home; wanted to go by [facility], but as he is not bedfast it would be self payment. He then declined the gurney. At this time his transportation is arranged by [facility] conservation planner for 4:30 pm today. The pt is refusing to keep his telemetry on as he is being discharged. PCT reports that she has replaced the stickers and leads 3 times in the past hour as they are continually being removed. Pt states he is not removing them. Telemetry suspended for the time being.
--- NOTE | 2020-10-16 14:48 | NUR ---
Pt incontinent of urine in bed. Linens, attends and pt gown saturated wit urine. Pt initially refused transfer with 3 staff members present, stating that he isn't able to transfer. States at home he is usually able to transfer to wheelchair/chair unassisted. Spasticity of arms, hands and legs noted, but able to transfer with assisance of 2 people from bed to chair and back again with stand/pivot. Linens were changed, clean clothes and attends put on pt. He requested help with urinal abotu 30 minutes later but only voided about 10 cc. Call to [facility] shoe lay out planner regarding transportation and asked if wheelchair transport was still appropriate given the pt's apparent difficulty with transferring, and his hesitancy to cooperate fully with staff. The pt has declined any SNF placement, but does have home health orders and he is insistent on going home to [place] today.
== END 2020-10-16 17:25 | disposition home health service (06) | DRG 381 ==
LOC: ER 13:49 → PCU 17:20
PROVIDERS: Emergency Medicine; Internal Medicine; Internal Medicine Gastroenterology; ADMIT Internal Medicine
PROC: 0DB98ZX Excision of Duodenum, Via Natural or Artificial Opening Endoscopic, Diagnostic (ICD-10-PCS; 2020-10-16)
PROC: 0DBA8ZX Excision of Jejunum, Via Natural or Artificial Opening Endoscopic, Diagnostic (ICD-10-PCS; 2020-10-16)
PROC: 0DB68ZX Excision of Stomach, Via Natural or Artificial Opening Endoscopic, Diagnostic (ICD-10-PCS; principal; 2020-10-16 07:30)
DX: K22.10 Ulcer of esophagus without bleeding (principal); E87.1 Hypo-osmolality and hyponatremia; E87.6 Hypokalemia; Z20.822 Contact with and (suspected) exposure to COVID-19; I10 Essential (primary) hypertension; E83.42 Hypomagnesemia; G62.9 Polyneuropathy, unspecified; F17.210 Nicotine dependence, cigarettes, uncomplicated; K26.9 Duodenal ulcer, unspecified as acute or chronic, without hemorrhage or perforation; K25.9 Gastric ulcer, unspecified as acute or chronic, without hemorrhage or perforation; F10.20 Alcohol dependence, uncomplicated; J44.9 Chronic obstructive pulmonary disease, unspecified; R11.2 Nausea with vomiting, unspecified; D63.8 Anemia in other chronic diseases classified elsewhere; R63.4 Abnormal weight loss; K70.30 Alcoholic cirrhosis of liver without ascites; Z71.6 Tobacco abuse counseling; Z98.890 Other specified postprocedural states; Z79.1 Long term (current) use of non-steroidal anti-inflammatories (NSAID); Z79.899 Other long term (current) drug therapy; Z68.20 Body mass index [BMI] 20.0-20.9, adult
CPT/HCPCS: 36415; 71045; 74176; 80048; 80053; 81001; 82330; 83735; 84132; 84443; 85025; 85027; 88305; 88342; 93005; 93010; 96365; 96375; 99285-25; A9270; G0480; J2250; J2405; J2704; J3475; J3480; J7030; J7120; U0004

== ENCOUNTER 2020-10-21 16:55 | Emergency (ER) | payer MEDICARE ==
[~2020-10-21] VITALS: Ht 180.3 cm; Wt 68.0 kg
[~2020-10-21 16:55] MED LIST changes: +Acetaminophen325 M1 PO; +MELATONIN5 M1 PO; +OMEP20ER PO
[2020-10-21 17:32] LABS: BASOPHILS ABSOLUTE AUTO 0.02 K/mm3 (0.00-0.23); BASOPHILS PERCENT AUTO 0 % (0-2); EOSINOPHILS ABSOLUTE AUTO 0.01 K/mm3 (0.00-0.68); EOSINOPHILS PERCENT AUTO 0 % (0-6); Hematocrit 28.6 % (37.0-53.0); Hemoglobin 10.5 g/dL (13.5-17.5); IMMATURE GRAN ABSOLUTE AUTO 0.04 K/mm3 (0.00-0.10); IMMATURE GRAN PERCENT AUTO 1 % (0-1); LYMPHOCYTES ABSOLUTE AUTO 0.93 K/mm3 (0.84-5.20); LYMPHOCYTES PERCENT AUTO 11 % (21-46); MONOCYTES ABSOLUTE AUTO 0.75 K/mm3 (0.16-1.47); MONOCYTES PERCENT AUTO 9 % (4-13); Mean Corpuscular HGB 40.5 pg (26.0-34.0); Mean Corpuscular HGB Conc 36.7 g/dL (31.5-36.5); Mean Corpuscular Volume 110 fL (80-100); Mean Platelet Volume 10.9 fL (9.1-12.4); NEUTROPHILS ABSOLUTE AUTO 6.51 K/mm3 (1.96-9.15); NEUTROPHILS PERCENT AUTO 79 % (41-73); Platelet Count 246 K/mm3 (150-400); RDW Coefficient Variation 12.6 % (11.7-14.2); RDW Standard Deviation 50.8 fL (35.1-46.3); Red Blood Cell Count 2.59 M/mm3 (4.30-5.90); White Blood Cell Count 8.26 K/mm3 (4.00-11.30)
[2020-10-21 17:47] LABS: Alanine Aminotransfer (ALT/SGP 49 U/L (12-78); Albumin, Blood 2.8 g/dL (3.4-5.0); Albumin/Globulin Ratio 0.7 (0.8-1.8); Alk Phos 119 U/L (50-136); Anion Gap 9 mmol/L (6-16); Aspartate Aminotrans (AST/SGOT 78 U/L (12-37); Bilirubin, Total 0.9 mg/dL (0.1-1.0); Blood Urea Nitrogen 7 mg/dL (8-24); CO2, Blood 28 mmol/L (21-32); Calcium, Blood 7.6 mg/dL (8.5-10.1); Chloride, Blood 97 mmol/L (98-108); Creatinine, Blood 0.54 mg/dL (0.60-1.20); Globulin, Blood 4.2 g/dL (2.2-4.0); Glomerular Filtration Rate >60 (60-); Glucose, Blood 195 mg/dL (70-99); Potassium, Blood 3.1 mmol/L (3.5-5.5); Sodium, Blood 134 mmol/L (136-145); Troponin I <0.015 ng/mL (0.000-0.040)
[2020-10-21 17:51] LABS: Source, Urine Clean Catch
[2020-10-21 17:54] LABS: Appearance, Urine Clear (Clear); Bilirubin, Urine Neg (Neg); Blood, Urine Neg (Neg); Color, Urine Yellow (P-Yellow); Glucose Qualitative, Urine Neg (Neg); Ketones, Urine Neg (Neg); Leukocyte Esterase, Urine Neg (Neg); Nitrite, Urine Neg (Neg); Protein, Urine Neg (Neg); Urobilinogen, Urine 1+ (Normal); pH, Urine 6.5 (5.0-8.0)
[2020-10-21 18:52] LABS: Free Thyroxine 1.07 ng/dL (0.70-1.60)
[2020-10-21 18:54] LABS: Thyroid Stimulating Hormone 3.54 uIU/mL (0.360-4.800)
[2020-10-21] MEDS ORDERED: Toprol Xl25 MG PO (21:59)
[2020-10-21] MEDS ORDERED: XARELTO20 MG PO (21:59)
[2020-10-21] MEDS ORDERED: K-Dur20 MEQ PO (21:59)
== END 2020-10-21 22:15 | disposition home or self-care (01) ==
LOC: ER 16:55
PROVIDERS: Emergency Medicine
DX: I48.91 Unspecified atrial fibrillation (principal); E87.6 Hypokalemia; E83.51 Hypocalcemia; I10 Essential (primary) hypertension; J44.9 Chronic obstructive pulmonary disease, unspecified; Z79.899 Other long term (current) drug therapy; Z87.891 Personal history of nicotine dependence
CPT/HCPCS: 36415; 80053; 81003; 84439; 84443; 84484; 85025; 93005; 93010; 96365; 96375; 99284-25; A9270; J0610; J7030

== ENCOUNTER 2020-11-13 08:53 | Inpatient (IN) | payer MEDICARE ==
[~2020-11-13] VITALS: Ht 180.3 cm; Wt 44.8 kg
[~2020-11-13 08:53] MED LIST changes: +Toprol Xl25 MG PO; +XARELTO20 MG PO
[2020-11-13 09:50] LABS: BASOPHILS ABSOLUTE AUTO 0.02 K/mm3 (0.00-0.23); BASOPHILS PERCENT AUTO 0 % (0-2); EOSINOPHILS ABSOLUTE AUTO 0.01 K/mm3 (0.00-0.68); EOSINOPHILS PERCENT AUTO 0 % (0-6); Hematocrit 31.1 % (37.0-53.0); Hemoglobin 10.8 g/dL (13.5-17.5); IMMATURE GRAN ABSOLUTE AUTO 0.09 K/mm3 (0.00-0.10); IMMATURE GRAN PERCENT AUTO 1 % (0-1); LYMPHOCYTES ABSOLUTE AUTO 1.48 K/mm3 (0.84-5.20); LYMPHOCYTES PERCENT AUTO 13 % (21-46); MONOCYTES ABSOLUTE AUTO 1.18 K/mm3 (0.16-1.47); MONOCYTES PERCENT AUTO 10 % (4-13); Mean Corpuscular HGB 39.6 pg (26.0-34.0); Mean Corpuscular HGB Conc 34.7 g/dL (31.5-36.5); Mean Corpuscular Volume 114 fL (80-100); Mean Platelet Volume 10.2 fL (9.1-12.4); NEUTROPHILS ABSOLUTE AUTO 8.99 K/mm3 (1.96-9.15); NEUTROPHILS PERCENT AUTO 76 % (41-73); Platelet Count 265 K/mm3 (150-400); RDW Coefficient Variation 16.6 % (11.7-14.2); RDW Standard Deviation 68.8 fL (35.1-46.3); Red Blood Cell Count 2.73 M/mm3 (4.30-5.90); White Blood Cell Count 11.77 K/mm3 (4.00-11.30)
[2020-11-13 10:03] LABS: Magnesium, Blood 1.2 mg/dL (1.6-2.4); Troponin I <0.015 ng/mL (0.000-0.040)
[2020-11-13 10:04] LABS: Alanine Aminotransfer (ALT/SGP 29 U/L (12-78); Albumin, Blood 2.3 g/dL (3.4-5.0); Albumin/Globulin Ratio 0.5 (0.8-1.8); Alk Phos 175 U/L (50-136); Anion Gap 12 mmol/L (6-16); Aspartate Aminotrans (AST/SGOT 54 U/L (12-37); Bilirubin, Total 0.9 mg/dL (0.1-1.0); Blood Urea Nitrogen 6 mg/dL (8-24); Bun/Creatinine Ratio 11.5 (12.0-20.0); CO2, Blood 26 mmol/L (21-32); Calcium, Blood 7.6 mg/dL (8.5-10.1); Chloride, Blood 94 mmol/L (98-108); Creatinine, Blood 0.52 mg/dL (0.60-1.20); Globulin, Blood 4.4 g/dL (2.2-4.0); Glomerular Filtration Rate >60 (60-); Glucose, Blood 135 mg/dL (70-99); Phosphorus, Blood 2.4 mg/dL (2.5-4.9); Potassium, Blood 2.4 mmol/L (3.5-5.5); Sodium, Blood 132 mmol/L (136-145); Total Protein, Blood 6.7 g/dL (6.4-8.2)
[2020-11-13 11:51] LABS: Source, Urine Catheter
[2020-11-13 11:59] LABS: Bilirubin, Urine Neg (Neg); Blood, Urine Neg (Neg); Glucose Qualitative, Urine Neg (Neg); Ketones, Urine Neg (Neg); Leukocyte Esterase, Urine Neg (Neg); Nitrite, Urine Neg (Neg); Protein, Urine Neg (Neg); Specific Gravity, Urine 1.015 (1.003-1.022); Urobilinogen, Urine 2+ (Normal); pH, Urine 6.5 (5.0-8.0)
[2020-11-13 12:20] LABS: Appearance, Urine Clear (Clear); Color, Urine Yellow (P-Yellow)
[2020-11-13] MEDS ORDERED: METO25ER PO (12:46)
[2020-11-13] MEDS ORDERED: Potassium Chlo20 ME1 PO (12:47)
[2020-11-13 14:49] LABS: SARS-Cov-2 (COVID-19) PCR, MMC NEGATIVE (NEGATIVE)
--- NOTE | 2020-11-13 15:07 | NUR ---
PT ADMIT TO PCU 15 AT 1325. USED SLIDE SHEET TO TRANSFER OVER. ON ROOM AIR SATING ABOVE 94%. DENIES SOB. LUNGS SOUNDING CLEAR IN UPPER LOBES AND COARSE/DIMINISHED IN LOWER LOBES. OCCASIONAL MOIST COUGH. SPUTUM TO BE COLLECTED. PT STATES SPUTUM GREEN IN COLOR. TELE SHOWING SINUS TACH WITH FREQUENT PAC'S. HR MAINTAINING 90'S AT THIS TIME. DENIES CHEST PAIN/PRESSURE. VITAL SIGNS STABLE. PT STATES HE USES WHEELCHAIR AT [facility] AND HAS NOT WALKED IN 4 YEARS. GENERALIZED WEAKNESS AND LIMITED RANGE OF MOTION THROUGHOUT. Q2 TURNING AT MAX AND NEEDED. ATTENDS IN PLACE, INCONTINENT OF URINE AND STOOL. REDNESS THROUGHOUT BAD AND BUTTOCK. PRESSURE ULCER NOTED TO COCCYX UPON ADMIT, CLEANED AND FOAM/MEPILEX IN PLACE. OFF LOADING COCCYX WITH PILLOWS/REPOSITIONING. SKIN DRY AND FRAGILE. PRESSURE ULCER/SCABING NOTED BEGIND RIGHT EAR, PICTURES IN CHART. PT STATES HE IS NOT SURE HOW EAR WOUND HAPPENED. OPEN TO AIR AT THIS TIME. SCD'S IN PLACE. CONTINUOUS BIOX. CALL LIGHT IN REACH. PT ORIENTED TO CALL LIGHT, AND UNIT. WILL CONTINUE TO MONITOR. NS, POTASSIUM AND ANTIBIOTICS INFUSING AT THIS TIME.
--- NOTE | 2020-11-13 18:33 | NUR ---
PT REMAINS ALERT AND ORIENTED X3-4. TELE SHOWING SINUS TACH WITH FREQUENT PACS WITH HR IN THE 90'S-100'S. DENIES CHEST PAIN/PRESSURE. COMPLAINS OF PAIN WHEN TRYING TO HAVE A BOWEL MOVEMENT. NEW ORDERS PLACED. LACTULOSE GIVEN AND FENTANYL FOR PAIN. PAIN DECREASING. PT NOT ABLE TO HOLD UTENSILS. HELP PROVIDED TO PATIENT WHEN EATING AND DRINKING. POTASSIUM AND NORMAL SALINE INFUSING. PRESSURE ULCER TO COCCYX, MEPILEX IN PLACE. BEHIND RIGHT EAR PRESSURE ULCER, CLEANED WITH WOUND CLEANSER AND OPEN TO AIR. CALL LIGHT IN REACH. WILL CONTINUE TO MONITOR AND REPORT OFF.
[2020-11-14 01:16] LABS: Adenovirus F 40/41 Not Detected (NOT DETECT); Astrovirus Not Detected (NOT DETECT); Campylobacter Sp Not Detected (NOT DETECT); Cryptosporidium Not Detected (NOT DETECT); Cyclospora Cayetanensis Not Detected (NOT DETECT); E. Coli O157 Not Detected (NOT DETECT); Entamoeba Histolytica Not Detected (NOT DETECT); Enteroaggregative E. coli-EAEC Not Detected (NOT DETECT); Enteropathogenic E. coli-EPEC Not Detected (NOT DETECT); Enterotoxigenic E. coli-ETEC Not Detected (NOT DETECT); Giardia Lamblia Not Detected (NOT DETECT); Norovirus GI/GII Not Detected (NOT DETECT); Plesiomonas Shigelloides Not Detected (NOT DETECT); Rotavirus A Not Detected (NOT DETECT); Salmonella Sp Not Detected (NOT DETECT); Sapovirus Not Detected (NOT DETECT); Shiga Toxin-prod E. coli-STEC Not Detected (NOT DETECT); Shigella/Enteroin E. coli-EIEC Not Detected (NOT DETECT); Vibrio Cholerae Not Detected (NOT DETECT); Vibrio Sp Not Detected (NOT DETECT); Yersinia Enterocolitica Not Detected (NOT DETECT)
[2020-11-14 03:55] LABS: BASOPHILS ABSOLUTE AUTO 0.02 K/mm3 (0.00-0.23); BASOPHILS PERCENT AUTO 0 % (0-2); EOSINOPHILS ABSOLUTE AUTO 0.01 K/mm3 (0.00-0.68); EOSINOPHILS PERCENT AUTO 0 % (0-6); Hematocrit 26.4 % (37.0-53.0); Hemoglobin 9.1 g/dL (13.5-17.5); IMMATURE GRAN ABSOLUTE AUTO 0.05 K/mm3 (0.00-0.10); IMMATURE GRAN PERCENT AUTO 1 % (0-1); LYMPHOCYTES ABSOLUTE AUTO 0.97 K/mm3 (0.84-5.20); LYMPHOCYTES PERCENT AUTO 13 % (21-46); MONOCYTES ABSOLUTE AUTO 0.72 K/mm3 (0.16-1.47); MONOCYTES PERCENT AUTO 9 % (4-13); Mean Corpuscular HGB 39.6 pg (26.0-34.0); Mean Corpuscular HGB Conc 34.5 g/dL (31.5-36.5); Mean Corpuscular Volume 115 fL (80-100); Mean Platelet Volume 10.4 fL (9.1-12.4); NEUTROPHILS ABSOLUTE AUTO 6.01 K/mm3 (1.96-9.15); NEUTROPHILS PERCENT AUTO 77 % (41-73); Platelet Count 151 K/mm3 (150-400); RDW Standard Deviation 70.5 fL (35.1-46.3); White Blood Cell Count 7.78 K/mm3 (4.00-11.30)
[2020-11-14 04:21] LABS: Alanine Aminotransfer (ALT/SGP 24 U/L (12-78); Albumin, Blood 2.2 g/dL (3.4-5.0); Albumin/Globulin Ratio 0.6 (0.8-1.8); Alk Phos 157 U/L (50-136); Anion Gap 7 mmol/L (6-16); Aspartate Aminotrans (AST/SGOT 29 U/L (12-37); Blood Urea Nitrogen 8 mg/dL (8-24); Bun/Creatinine Ratio 15.2 (12.0-20.0); CO2, Blood 25 mmol/L (21-32); Calcium, Blood 7.8 mg/dL (8.5-10.1); Chloride, Blood 101 mmol/L (98-108); Creatinine, Blood 0.53 mg/dL (0.60-1.20); Globulin, Blood 3.9 g/dL (2.2-4.0); Glomerular Filtration Rate >60 (60-); Glucose, Blood 122 mg/dL (70-99); Magnesium, Blood 1.4 mg/dL (1.6-2.4); Phosphorus, Blood 2.3 mg/dL (2.5-4.9); Potassium, Blood 3.4 mmol/L (3.5-5.5); Sodium, Blood 133 mmol/L (136-145); Total Protein, Blood 6.1 g/dL (6.4-8.2)
--- NOTE | 2020-11-14 06:36 | NUR ---
SHIFT SUMMARY PT A&O X4. VSS. SPO2 > 92% ON RA. MONITOR SHOWS SR-ST W/ PAC's, HR 90's-110. PT C/O STOMACHE PAIN THEN PASSED LIQUID BM. RECTAL TUBE PLACED AFTER 2ND LIQUID BM. PT COCCYX RED & PRESSURE ULCERS NOTED TO L BUTTOCKS. MEPILEX DRESSING CHANGED MULTIPLE TIMES THIS SHIFT D/T PT INCONTINCE OF URINE & STOOL. ATTENDS IN PLACE. NS GTT INFUSING PER ORDERS. PT REPORTS "I CAN'T HOLD ON TO THINGS VERY WELL BECAUSE OF MY NEUROPATHY."
--- NOTE | 2020-11-14 12:10 | NUR ---
UPDATE PT STATING THEY WANT TO LEAVE AMA. REQUESTING NURSING STAFF TO FIND PT RIDE. PHYSICIAN NOTIFIED. PHYSICIAN STATED,"PT CAN LEAVE AMA IF ABLE TO FIND OWN RIDE D/T POLICY." WILL CONT. TO MONITOR.
--- NOTE | 2020-11-14 13:06 | NUR ---
patient arrived on the unit at 13:05. the patient's lunch tray was brought up from [facility]. the toy painter is now feeding the patient his lunch
--- NOTE | 2020-11-14 13:09 | NUR ---
PT TRANSPORT PT TRANSPORTED TO ROOM 328 BY BED WITH ALL BELONGINGS BY THIS RN AND ROOF FITTER. REPORT GIVEN TO ELIAN HERNANDEZ.
--- NOTE | 2020-11-14 17:04 | NUR ---
PATIENT IS ALERT AND ORIENTED AND COOPERATIVE WITH CARE. PATIENT IS INDPENDENT IN HER ROOM. SHE WAS SHOWERED TODAY. NO C/O PAIN. UP IN CHAIR FOR MEALS. VSS. OXYGEN SATURATION 92% AND ABOVE ON RA. WILL CONTINUE TO MONITOR
--- NOTE | 2020-11-14 17:31 | NUR ---
PATIENT IS ALERT AND ORIENTED. HE IS SOFT SPOKEN. INCONTINENT OF BOWEL AND BLADDER, ATTENDS IN PLACE. ST CONSULT WAS PLACED TODAY AND THE PATIENT WAS PLACED ON A PUREE DIET WITH NECTAR THICK LIQUIDS. THE PATIENT IS BEDREST AT THIS TIME. Q2H TURNS AND REPOSTIONING WITH PILLOWS. POSSIBLE DC BACK TO [facility] TOMORROW.
--- NOTE | 2020-11-15 02:32 | NUR ---
2109 TELE EVENT PT HAD QTC OF 0.53 SECONDS PER FIRE LIEUTENANT. SINUS TACH AT 104 AT THIS TIME. PT IS ASYMPTOMATIC. DR. MCCLURE NOTIFIED. NO NEW ORDERS. WILL KEEP MONITORING.
--- NOTE | 2020-11-15 04:12 | NUR ---
INTERNET E COMMERCE SPECIALIST SUMMARY PT A/O X3 WITH FORGETFULNESS. DENIES PAIN, NAUSEA, SOB. ROOM AIR MAINTAINING GOOD SATS. TELE SR IN THE HIGH 90'S WITH PAC'S PER IMPROVEMENT SPECIALIST. NO OTHER CARDIAC EVENTS FROM PRIOR. SLEPT WELL TONIGHT. FREQUENT REPOSITIONING PROVIDED. INCONTIENT TO BOWEL AND BLADDER. ABLE TO MAKE NEEDS KNOWN. PROVIDED SEVERAL WARM BLANKETS TO PT PER PT REQUEST. CALL LIGHT WITHIN REACH, WILL CONTINUE TO MONITOR.
[2020-11-15] MEDS ORDERED: ACET325 PO (11:07)
[2020-11-15] MEDS ORDERED: GUAI600T33 PO (11:09)
[2020-11-15] MEDS ORDERED: AZIT500 PO (11:09)
[2020-11-15] MEDS ORDERED: MAGNESIUM OXID500 MG PO (11:10)
[2020-11-15] MEDS ORDERED: XARELTO20 MG PO (11:10)
[2020-11-15] MEDS ORDERED: VISBIOME 112.51 EACH PO (11:11)
[2020-11-15] MEDS ORDERED: CEFP200 PO (11:12)
--- NOTE | 2020-11-15 12:31 | NUR ---
PT AWAKE AT START OF SHIFT, WANTING TO GO HOME. AM MEDICATIONS CRUSHED AND PUT IN APPLESAUCE, PER ORDERS. PT REFUSED THEM. DR YING IN TO SEE PT AFTER BREAKFAST. PT OK TO D/C BACK TO [facility]. PT REPORTED THAT HE HAD SOMEONE TO HELP HIM WITH HIS MEDICATIONS AT HOME. [facility] HERE TO TAKE PT BACK HOME. D/C INSTRUCTIONS REVIEWED WITH PT, VERBALIZED UNDERSTANDING. PT ASSISTED INTO W/C FOR TX. DENIED FURTHER NEEDS.
== END 2020-11-15 12:27 | disposition home or self-care (01) | DRG 308 ==
LOC: ER 08:53 → PCU 12:40 → MEDS 11-14 13:01
PROVIDERS: Internal Medicine; Nurse Practitioner Acute Care; Physician Assistant; ADMIT Internal Medicine
DX: I48.91 Unspecified atrial fibrillation (principal); J18.9 Pneumonia, unspecified organism; J44.0 Chronic obstructive pulmonary disease with (acute) lower respiratory infection; I10 Essential (primary) hypertension; E87.6 Hypokalemia; E83.51 Hypocalcemia; Z20.822 Contact with and (suspected) exposure to COVID-19; E83.42 Hypomagnesemia; F17.210 Nicotine dependence, cigarettes, uncomplicated; Z79.01 Long term (current) use of anticoagulants; R62.7 Adult failure to thrive; Z68.21 Body mass index [BMI] 21.0-21.9, adult; F03.90 Unspecified dementia, unspecified severity, without behavioral disturbance, psychotic disturbance, mood disturbance, and anxiety
CPT/HCPCS: 0097U; 36415; 71045; 80053; 81003; 83735; 83880; 84100; 84132; 84145; 84443; 84484; 85025; 92610; 93005; 93010; 93306; 94762; 96365; 96367; 96375; 97110; 97162; 97165; 97530; 99285-25; A9270; J0456; J0610; J0696; J3010; J3475; J3480; J7030; J7050; J7060; U0004

== ENCOUNTER 2020-11-24 16:34 | Inpatient (IN) | payer MEDICARE ==
[~2020-11-24] VITALS: Ht 172.7 cm; Wt 55.8 kg
[~2020-11-24 16:34] MED LIST changes: +AZIT500 PO; +CEFP200 PO; +GUAI600T33 PO; +MAGNESIUM OXID500 MG PO; +Potassium Chlo20 ME1 PO; +VISBIOME 112.51 EACH PO
[2020-11-24 18:10] LABS: BASOPHILS ABSOLUTE AUTO 0.04 K/mm3 (0.00-0.23); BASOPHILS PERCENT AUTO 0 % (0-2); EOSINOPHILS PERCENT AUTO 0 % (0-6); Hematocrit 31.3 % (37.0-53.0); Hemoglobin 10.4 g/dL (13.5-17.5); IMMATURE GRAN ABSOLUTE AUTO 0.22 K/mm3 (0.00-0.10); IMMATURE GRAN PERCENT AUTO 1 % (0-1); LYMPHOCYTES ABSOLUTE AUTO 0.73 K/mm3 (0.84-5.20); LYMPHOCYTES PERCENT AUTO 3 % (21-46); MONOCYTES ABSOLUTE AUTO 1.34 K/mm3 (0.16-1.47); MONOCYTES PERCENT AUTO 6 % (4-13); Mean Corpuscular HGB Conc 33.2 g/dL (31.5-36.5); Mean Corpuscular Volume 117 fL (80-100); Mean Platelet Volume 10.5 fL (9.1-12.4); NEUTROPHILS PERCENT AUTO 89 % (41-73); Platelet Count 266 K/mm3 (150-400); RDW Coefficient Variation 15.5 % (11.7-14.2); RDW Standard Deviation 67.8 fL (35.1-46.3); Red Blood Cell Count 2.67 M/mm3 (4.30-5.90); White Blood Cell Count 21.43 K/mm3 (4.00-11.30)
[2020-11-24 18:34] LABS: Alanine Aminotransfer (ALT/SGP 28 U/L (12-78); Albumin, Blood 2.5 g/dL (3.4-5.0); Albumin/Globulin Ratio 0.6 (0.8-1.8); Alk Phos 107 U/L (50-136); Anion Gap 15 mmol/L (6-16); Aspartate Aminotrans (AST/SGOT 43 U/L (12-37); Bilirubin, Total 1.5 mg/dL (0.1-1.0); Blood Urea Nitrogen 25 mg/dL (8-24); CO2, Blood 21 mmol/L (21-32); Calcium, Blood 8.5 mg/dL (8.5-10.1); Chloride, Blood 105 mmol/L (98-108); Creatinine, Blood 1.92 mg/dL (0.60-1.20); Globulin, Blood 4.3 g/dL (2.2-4.0); Glomerular Filtration Rate 38 (60-); Glucose, Blood 111 mg/dL (70-99); Magnesium, Blood 1.4 mg/dL (1.6-2.4); Potassium, Blood 3.5 mmol/L (3.5-5.5); Sodium, Blood 141 mmol/L (136-145); Total Protein, Blood 6.8 g/dL (6.4-8.2); Troponin I <0.015 ng/mL (0.000-0.040)
[2020-11-24 19:13] LABS: SARS-Cov-2 (COVID-19) PCR, MMC NEGATIVE (NEGATIVE)
[2020-11-24 20:24] LABS: CPK Creatine Kinase 125 U/L (39-308); Creatine Kinase MB 4.9 ng/mL (0.0-3.6); Creatine Kinase MB Index 3.9 (0.0-4.0)
--- NOTE | 2020-11-24 20:30 | NUR ---
Transfer report from EVENT REPRESENTATIVEELIAN Mitchell on Septic PT found down from [facility] side of [place] & was down for unknown time. Reportedly noncompliant with oral seroquel for agitation. Multiple skin issues including dcub coccyx. Await admission. PT recieved 2 l NS in ER per report. Will photodoc skin condition.
--- NOTE | 2020-11-24 21:46 | NUR ---
PT says he has no advanced directive or HC POA or Polst but would like DNR status. Will advise MD as listed as full code
[2020-11-25 05:13] LABS: BASOPHILS ABSOLUTE AUTO 0.02 K/mm3 (0.00-0.23); BASOPHILS PERCENT AUTO 0 % (0-2); EOSINOPHILS ABSOLUTE AUTO 0.01 K/mm3 (0.00-0.68); EOSINOPHILS PERCENT AUTO 0 % (0-6); Hematocrit 24.5 % (37.0-53.0); Hemoglobin 8.1 g/dL (13.5-17.5); IMMATURE GRAN ABSOLUTE AUTO 0.11 K/mm3 (0.00-0.10); IMMATURE GRAN PERCENT AUTO 1 % (0-1); LYMPHOCYTES ABSOLUTE AUTO 1.05 K/mm3 (0.84-5.20); LYMPHOCYTES PERCENT AUTO 7 % (21-46); MONOCYTES ABSOLUTE AUTO 1.16 K/mm3 (0.16-1.47); MONOCYTES PERCENT AUTO 8 % (4-13); Mean Corpuscular HGB 39.5 pg (26.0-34.0); Mean Corpuscular HGB Conc 33.1 g/dL (31.5-36.5); Mean Corpuscular Volume 120 fL (80-100); Mean Platelet Volume 10.9 fL (9.1-12.4); NEUTROPHILS ABSOLUTE AUTO 13.12 K/mm3 (1.96-9.15); NEUTROPHILS PERCENT AUTO 85 % (41-73); Platelet Count 158 K/mm3 (150-400); RDW Coefficient Variation 15.9 % (11.7-14.2); RDW Standard Deviation 69.6 fL (35.1-46.3); Red Blood Cell Count 2.05 M/mm3 (4.30-5.90); White Blood Cell Count 15.47 K/mm3 (4.00-11.30)
--- NOTE | 2020-11-25 05:22 | NUR ---
65 year old MAle admitted with sepis unknown source. He recieved vanco & IV fliuds. Multivit bag infusing currently. To recieve 1 additional liter NS today. he is able to communicate but does not use call up. He was bladder scanned for 63 ml no void this shift. no UA collected in ER. PT had glass of OJ & Sprite no other oral intake. Tachycardic on tele up to 130 BPM. CO pain with movement or touch. Skin mascerated & PT has 1 coccyx dcub 1 buttock dcub, rt foot dcub , lt heel dcub & multiple scalded type areas on Spine buttock. He does not turn self in bed, very stiff & rigid with cares. in to see PT & assessed dcubs & wrote wound care orders thigh perianal areas, dcubs dressed after cleaning with caracleanse & dry protective dressing applied. WBC decreased from admit. PT requests DNR status changed from full code.
[2020-11-25 05:39] LABS: Albumin, Blood 1.9 g/dL (3.4-5.0); Albumin/Globulin Ratio 0.6 (0.8-1.8); Bilirubin, Total 0.7 mg/dL (0.1-1.0); Bun/Creatinine Ratio 14.6 (12.0-20.0); Calcium, Blood 7.1 mg/dL (8.5-10.1); Creatinine, Blood 1.71 mg/dL (0.60-1.20); Globulin, Blood 3.3 g/dL (2.2-4.0); Potassium, Blood 2.7 mmol/L (3.5-5.5); Total Protein, Blood 5.2 g/dL (6.4-8.2)
--- NOTE | 2020-11-25 06:45 | NUR ---
PT has sepsis tachycardia ETOH withdrawl. Scores 4 on ETOH WD scale. He is DNR status. Wound care photodoc on multiple scalded type wounds and 4 decubs. Very stiff & rigid. 2 max to turn Q 2 hours. Continue to assess.
[2020-11-26 00:37] LABS: Source, Urine Clean Catch
[2020-11-26 00:41] LABS: Appearance, Urine Clear (Clear); Bilirubin, Urine Neg (Neg); Blood, Urine 3+ (Neg); Color, Urine Yellow (P-Yellow); Glucose Qualitative, Urine Neg (Neg); Ketones, Urine Neg (Neg); Leukocyte Esterase, Urine 1+ (Neg); Nitrite, Urine Neg (Neg); Protein, Urine 1+ (Neg); Urobilinogen, Urine NORM (Normal)
[2020-11-26 00:53] LABS: Red Blood Cells, Urine 0-2 /hpf (0-2)
[2020-11-26 00:54] LABS: Amorphous Light (0-Heavy); Bacteria Mod /hpf; Squamous Epithelial Cells Not Seen /hpf (Few)
[2020-11-26 05:28] LABS: BASOPHILS ABSOLUTE AUTO 0.02 K/mm3 (0.00-0.23); BASOPHILS PERCENT AUTO 0 % (0-2); EOSINOPHILS ABSOLUTE AUTO 0.04 K/mm3 (0.00-0.68); EOSINOPHILS PERCENT AUTO 1 % (0-6); Hemoglobin 7.7 g/dL (13.5-17.5); IMMATURE GRAN ABSOLUTE AUTO 0.11 K/mm3 (0.00-0.10); IMMATURE GRAN PERCENT AUTO 1 % (0-1); LYMPHOCYTES ABSOLUTE AUTO 0.86 K/mm3 (0.84-5.20); LYMPHOCYTES PERCENT AUTO 11 % (21-46); MONOCYTES ABSOLUTE AUTO 0.64 K/mm3 (0.16-1.47); MONOCYTES PERCENT AUTO 8 % (4-13); Mean Corpuscular HGB 38.9 pg (26.0-34.0); Mean Corpuscular HGB Conc 32.1 g/dL (31.5-36.5); Mean Corpuscular Volume 121 fL (80-100); Mean Platelet Volume 10.8 fL (9.1-12.4); NEUTROPHILS PERCENT AUTO 79 % (41-73); Platelet Count 127 K/mm3 (150-400); RDW Standard Deviation 71.1 fL (35.1-46.3); Red Blood Cell Count 1.98 M/mm3 (4.30-5.90); White Blood Cell Count 7.97 K/mm3 (4.00-11.30)
--- NOTE | 2020-11-26 06:04 | NUR ---
PT who was found down at [facility] continues on antibiotics to treat sepsis. Multiple dcubs , rashes , macerated skin. PT takes multiple liquids without s/sx of aspiration. PT has lone tooth which sticks out of upper palate impeading eating. He has rigidity & has difficulty feeding self ofen spilling drinks on bed. Wound care completed with foam dressing applied over coccyx dcub. 300 ml liquid stool out patent rectal tube. Over 1000 ml out via condom cath. Alert irritable demanding at times. Has Dr Brown psych eval pending. PT unable to care for self. Very weak rigid pale with HBG below 8. Little insight into condition did change code status to DNR at PT request. HAs PT OT ST orders. WC bound baseline CIWA less than 8 .
[2020-11-26 06:23] LABS: Alanine Aminotransfer (ALT/SGP 27 U/L (12-78); Albumin, Blood 1.8 g/dL (3.4-5.0); Albumin/Globulin Ratio 0.6 (0.8-1.8); Alk Phos 100 U/L (50-136); Anion Gap 10 mmol/L (6-16); Aspartate Aminotrans (AST/SGOT 40 U/L (12-37); Bilirubin, Total 0.5 mg/dL (0.1-1.0); Blood Urea Nitrogen 18 mg/dL (8-24); Bun/Creatinine Ratio 23.9 (12.0-20.0); CO2, Blood 22 mmol/L (21-32); Calcium, Blood 6.7 mg/dL (8.5-10.1); Chloride, Blood 109 mmol/L (98-108); Creatinine, Blood 0.75 mg/dL (0.60-1.20); Globulin, Blood 3.2 g/dL (2.2-4.0); Glomerular Filtration Rate >60 (60-); Glucose, Blood 139 mg/dL (70-99); Magnesium, Blood 1.5 mg/dL (1.6-2.4); Phosphorus, Blood 3.5 mg/dL (2.5-4.9); Potassium, Blood 2.8 mmol/L (3.5-5.5); Sodium, Blood 141 mmol/L (136-145)
[2020-11-26 17:42] LABS: Adenovirus F 40/41 Not Detected (NOT DETECT); Astrovirus Not Detected (NOT DETECT); Campylobacter Sp Not Detected (NOT DETECT); Cryptosporidium Not Detected (NOT DETECT); Cyclospora Cayetanensis Not Detected (NOT DETECT); E. Coli O157 Not Detected (NOT DETECT); Entamoeba Histolytica Not Detected (NOT DETECT); Enteroaggregative E. coli-EAEC Not Detected (NOT DETECT); Enteropathogenic E. coli-EPEC Not Detected (NOT DETECT); Enterotoxigenic E. coli-ETEC Not Detected (NOT DETECT); Giardia Lamblia Not Detected (NOT DETECT); Norovirus GI/GII Not Detected (NOT DETECT); Plesiomonas Shigelloides Not Detected (NOT DETECT); Rotavirus A Not Detected (NOT DETECT); Salmonella Sp Not Detected (NOT DETECT); Sapovirus Not Detected (NOT DETECT); Shiga Toxin-prod E. coli-STEC Not Detected (NOT DETECT); Shigella/Enteroin E. coli-EIEC Not Detected (NOT DETECT); Vibrio Cholerae Not Detected (NOT DETECT); Vibrio Sp Not Detected (NOT DETECT); Yersinia Enterocolitica Not Detected (NOT DETECT)
--- NOTE | 2020-11-26 18:30 | NUR ---
PT IS A/OX2, ORIENTED TO PLACE AND SELF,THIS AM PT PT APPEARED TO BE BREATHING EASILY ON RA, BREATH SOUNDS HAD SCATTERED RHONCHI T/O, THE PT WAS SEEN BY THE SPEECH THERAPIST AND NECTOR THICK LIQUIDS WERE ORDERED FOR THE PT, AT THIS TIME NOW THE PTS BREATH SOUNDS ARE VERY WET PT IS O2 SATS DECREASED INTO THE 80%'S WALL SUCTION WAS ATTEMPTED WITH SOME RESULT A CALL WAS MADE TO DR. MARTE AND DEEP SUCTION BY RT WAS ORDERED AND A CXR, PT IS ON 3L/MIN O2 AT THIS TIME SAT'S > 90%, WOUND CARE DONE ON THE PT EARLIER TODAY, DRESSING'S APPLIED TO THE COCCYX, RIGHT SHOULDER AND BILATERAL THIGHS, CALL LIGHT IN REACH WILL CONTINUE TO MONITOR AND ASSESS FOR CHANGES
--- NOTE | 2020-11-26 19:57 | NUR ---
xray here to get portable chest xray. PT has some anxiety will medicate. Asks everyone for big drinks. Had speech therapy eval & he has thickened liquid orders mech soft ground meat. Needs fed. Very stiff & rigid, weak & unable to move self in bed. Multiple decubitus ulcers present on admission. continues with watery brown stool out rectal tube. GI panel neg & neg CDIFF. Continues on IV abx for sepsis.
[2020-11-27 00:06] LABS: U Amphetamine Screen Not Detected; U Barbituate Screen Not Detected; U Benzodiazapine Screen Not Detected; U Buprenorphine Screen Not Detected; U Cannabinoids Screen Not Detected; U Cocaine Screen Not Detected; U Methadone Screen Not Detected; U Methamphetamine Screen Not Detected; U Opiates Screen Not Detected; U Oxycodone Screen Not Detected; U Phencyclidine Screen Not Detected; U Propoxyphene Screen Not Detected
[2020-11-27 05:10] LABS: Hematocrit 25.4 % (37.0-53.0); Hemoglobin 8.3 g/dL (13.5-17.5); Mean Corpuscular HGB 39.3 pg (26.0-34.0); Mean Corpuscular HGB Conc 32.7 g/dL (31.5-36.5); Mean Corpuscular Volume 120 fL (80-100); Mean Platelet Volume 11.3 fL (9.1-12.4); Platelet Count 135 K/mm3 (150-400); RDW Coefficient Variation 15.9 % (11.7-14.2); RDW Standard Deviation 71.1 fL (35.1-46.3); Red Blood Cell Count 2.11 M/mm3 (4.30-5.90); White Blood Cell Count 21.29 K/mm3 (4.00-11.30)
[2020-11-27 05:38] LABS: BAND PERCENT MAN 4 % (0-8); BASOPHILS PERCENT MAN 0 % (0-2); EOSINOPHILS PERCENT MAN 0 % (0-6); LYMPHOCYTES ABSOLUTE MAN 1.49 K/mm3 (0.84-5.20); LYMPHOCYTES PERCENT MAN 7 % (21-46); MONOCYTES ABSOLUTE MAN 0.85 K/mm3 (0.16-1.47); MONOCYTES PERCENT MAN 4 % (4-13); NEUTROPHILS ABSOLUTE MAN 18.94 K/mm3 (1.96-9.15); SEG NEUTROPHILS PERCENT MAN 85 % (41-73); TOTAL CELLS COUNTED 100
[2020-11-27 05:43] LABS: Anion Gap 10 mmol/L (6-16); Blood Urea Nitrogen 15 mg/dL (8-24); CO2, Blood 20 mmol/L (21-32); Calcium, Blood 7.3 mg/dL (8.5-10.1); Chloride, Blood 108 mmol/L (98-108); Creatinine, Blood 1.15 mg/dL (0.60-1.20); Glomerular Filtration Rate >60 (60-); Glucose, Blood 115 mg/dL (70-99); Magnesium, Blood 1.8 mg/dL (1.6-2.4); Phosphorus, Blood 3.7 mg/dL (2.5-4.9); Potassium, Blood 4.4 mmol/L (3.5-5.5); Sodium, Blood 138 mmol/L (136-145)
--- NOTE | 2020-11-27 05:57 | NUR ---
SEPTIC PT WITH DNR STATUS CONTINUES TO BE ON IV ANTIBIOTICS & ciwa FOR ETOH WITHDRAWL. MEDICATED WITH 1 MG ORAL ATIVAN X 2 FOR CIWA SCORE OF 12.pt HAS BIOXXX TO RT FOOT & POOR PERFUSION CAUSES DIP IN OXYGEN FROM 96 TO 82. Repeatedly removes oxygen sat up to 97 on room air. PT had diet modification on yesterday by speech therapy with nectar thick liquds and mech soft diet with ground meat. PT has broken & missing teeth 1 front tooth sticks out & impeads feeding. IRRITABLE, Multiple decubs & constant oozing of liquid dark stool urinary incontinence. Rectal tube & condom cath present & patent to prevent further skin breakdown.
--- NOTE | 2020-11-27 06:42 | NUR ---
PT pulled IV refuses to wear oxygen. Apears more relaxed after 1 mg oral ativan for CIWA score 12. Psych eval yesterday recommends guardianship.
--- NOTE | 2020-11-27 17:33 | NUR ---
PT TODAY IS LETHARGIC, UNABLE TO AWKEN ENOUGH TO SAFELY TAKE MEDS OR EAT AND DRINK, PT WAS MADE NPO BY SPEECH THERAPY TODAY, THE PT IS MAINTAING O2 SATS GREATER THAN 90% ON O2 AT 3L/MIN. THE PTS COCCYX WOUND DRESSING WAS CHANGED, PT HAS A GREAT DEAL OF PAIN WITH POSITIONING, PT WAS STARTED ON PPN THIS AFTERNOON, RECTAL TUBE IS PRODUCING DARK LIQUID STOOL, THE PT HAS ALSO HAD SOME MORE SOLID SOFT STOOL, CALL LIGHT IN REACH, WILL CONTINUE TO MONITOR AND ASSESS FOR CHANGES
--- NOTE | 2020-11-28 01:20 | NUR ---
11/28/[address] MCCLURE NOTIFIED OF PATIENT WITH SLOWLY INCREASING HR FROM LOW 100'S TO 120-130'S. PATIENT IS A LITTLE MORE ALERT, SAYING A FEW WORDS. LOPRESSOR 5 MG GIVEN SLOW IV PUSH WITH HR DOWN TO 108-117. wILL CONTINUE TO MONITOR.
[2020-11-28 05:02] LABS: Hematocrit 24.9 % (37.0-53.0); Hemoglobin 8.1 g/dL (13.5-17.5); Mean Corpuscular HGB 39.1 pg (26.0-34.0); Mean Corpuscular HGB Conc 32.5 g/dL (31.5-36.5); Mean Corpuscular Volume 120 fL (80-100); Mean Platelet Volume 11.4 fL (9.1-12.4); Platelet Count 100 K/mm3 (150-400); RDW Coefficient Variation 15.9 % (11.7-14.2); RDW Standard Deviation 70.7 fL (35.1-46.3); Red Blood Cell Count 2.07 M/mm3 (4.30-5.90); White Blood Cell Count 18.02 K/mm3 (4.00-11.30)
[2020-11-28 05:46] LABS: Alanine Aminotransfer (ALT/SGP 23 U/L (12-78); Albumin, Blood 1.6 g/dL (3.4-5.0); Albumin/Globulin Ratio 0.5 (0.8-1.8); Alk Phos 75 U/L (50-136); Anion Gap 9 mmol/L (6-16); Aspartate Aminotrans (AST/SGOT 17 U/L (12-37); Bilirubin, Total 0.6 mg/dL (0.1-1.0); Blood Urea Nitrogen 19 mg/dL (8-24); Bun/Creatinine Ratio 18.1 (12.0-20.0); CO2, Blood 22 mmol/L (21-32); Calcium, Blood 7.5 mg/dL (8.5-10.1); Chloride, Blood 112 mmol/L (98-108); Creatinine, Blood 1.05 mg/dL (0.60-1.20); Globulin, Blood 3.4 g/dL (2.2-4.0); Glomerular Filtration Rate >60 (60-); Glucose, Blood 143 mg/dL (70-99); Magnesium, Blood 1.6 mg/dL (1.6-2.4); Phosphorus, Blood 3.7 mg/dL (2.5-4.9); Potassium, Blood 3.4 mmol/L (3.5-5.5); Sodium, Blood 143 mmol/L (136-145); Triglycerides 103 mg/dL (30-160)
[2020-11-28 05:56] LABS: BAND PERCENT MAN 6 % (0-8); BASOPHILS PERCENT MAN 0 % (0-2); EOSINOPHILS ABSOLUTE MAN 0.18 K/mm3 (0.00-0.68); EOSINOPHILS PERCENT MAN 1 % (0-6); LYMPHOCYTES ABSOLUTE MAN 0.54 K/mm3 (0.84-5.20); LYMPHOCYTES PERCENT MAN 3 % (21-46); MONOCYTES PERCENT MAN 0 % (4-13); MYELOCYTE ABSOLUTE MAN 0.18 K/mm3 (0.00-0.00); MYELOCYTE PERCENT MAN 1 % (0-0); NEUTROPHILS ABSOLUTE MAN 17.11 K/mm3 (1.96-9.15); SEG NEUTROPHILS PERCENT MAN 89 % (41-73); TOTAL CELLS COUNTED 100
--- NOTE | 2020-11-28 06:27 | NUR ---
Rn summary: Patient has become more alert throughout night. Pt still minimal verbal expression, but does say some words. Patient has been repositioned about q 2 hours. Rectal tube remains in place with seedy brown stool. Pt has a condom cath with dk yellow urine. Pt continues to receive clinamix and IV antibiotics, WBC level is decreasing. Pt does pull off O2 sats 89-96%. Heart rate has remained 110-117. Pt has remained NPO due to aspiration risk due to decreased LOC.
--- NOTE | 2020-11-28 17:13 | NUR ---
65 year old male admitted to hospital for Sepsis. Pt's medical history and comorbidities include: Alcohol Cachexia, Failure to Thrive, Afib, COPD, Dementia, GERD, Liver Cirrhosis, Alcohol Abuse, and Neuropathy. Spoke with PT Taye earlier this AM and discussed case. Taye reports D/C Pt from [facility] due to his unwillingness to work with therapy. Pt has shown cognitive decline and ST is recommending NPO status due to Pt's inability to swallow safely. Spoke with Caremanager Anthony and discussed case. Anthony reports Pt has been refusing help and care at facility. Pt also has history of non compliance. At baseline Pt is chair bound. Pt resting in bed and is A&OX2. Pt denies pain at this time. Pt appears withdrawn and does not engage in conversation. Pt appears comfortable with no S/S of distress at this time. Reviewed Dr Fischer's note who is recommending guardianship. Spoke with Pt's primary RN Linda, and FABRICATION SUPERVISORUnique Pandya. Pt is bedbound and requires full assistance with care. Spoke with Dr Reyna and Dr Brown. Both agree due to Pt's unwillingness to work with therapies, non compliance with care, inability to swallow safely, and Pt's curent health condition (including comorbidities)that Pt should be placed on comfort care. Dr Brown will place a note to reflect agrrement with goals of care. Placed comfort care order, comfort care order set, and D/C maintenance medications per V/O from Dr Reyna. Pt's B/P medication and IV antibiotics will continue for comfort. Pt has no advanced directive or decision maker. PPS 30% ADLs 6/6 Pt high risk for readmission Palliative Care will remain available.
--- NOTE | 2020-11-28 18:02 | NUR ---
SHIFT SUMMARY PT ABLE TO STATE NEEDS AT TIMES AND HAS MINIMAL SPEECH OR RESPONSE. PT PLACED ON COMFORT CARE THIS SHIFT. HOSPITALIST WANTS IV ABX TO CONTINUE [facility] PT ON COMFORT CARE. RECTAL BAG CHANGED. CONDOM CATHETER PATENT AND DRAINING. REPOSITIONED Q2H, PRN DRESSING CHANGES COMPLETED. TELE AND PULSE OX REMOVED. PT APPEARS COMFORTABLE, DENIES ANY PAIN OR DISTRESS. ALLOWED ORAL CARE TO BE COMPLETED X2 THIS SHIFT. IV LOPRESSOR GIVEN X1 PRIOR TO COMFORT CARE ORDERS BEING PLACED DUE TO TACHYCARDIA. CURRENTLY ON RA, CONTINUES TO REMOVE O2 SUPPLEMENTATION.
--- NOTE | 2020-11-28 19:57 | NUR ---
COMFORT: PATIENT IS RESTING IN BED WITH EYS CLOSED. PERSONAL AND CATHETER CARE GIVEN ALONG WITH T&P.
--- NOTE | 2020-11-28 21:46 | NUR ---
COMFORT: PATIENT IS YELLING HELP, HELP. SCORES A 7 ON THE FLACC SCALE. ROXANOL 10MG IS GIVEN. RECTAL TUBE AND CONDOM CATH ARE IN PLACE. SOME SCABS ON R ELBOW HAVE COME OF AND ARE BEEDING. MEPILEX IS APPLIED AFTER WOUND IS WASHED. PATIENT IS ASKING FOR WATER, UNABLE TO SWALLOW EVEN A SMALL AMOUNT WITHOUT COUGHING. NO ORAL MEDICATIONS ARE GIVEN.
--- NOTE | 2020-11-28 23:40 | NUR ---
COMFORT: PATIENT CONTINUES TO HAVE GOOD EFFECT FROM ROXANAOL. RESTING IN BED WITH EYE'S CLOSED RESPIRATIONS ARE EASY AT 18. BED ALARM IS ON FOR SAFETY.
--- NOTE | 2020-11-29 03:14 | NUR ---
COMFORT: PATIENT CONTINUES TO HAVE GOOD EFFECT FROM ROXANOL. RESTING IN BED WITH EYE'S CLOSED.
--- NOTE | 2020-11-29 03:16 | NUR ---
COMFORT: PATIENT CONTINUES TO REST WITH NO S/S OF PAIN OR DISCOMFORT.
--- NOTE | 2020-11-29 06:42 | NUR ---
SHIFT SUMMARY: PATIENT IS ALERT AND ORIENTED TO SELF. UNABLE TO TOLERATE ANY PO FLUIDS WITHOUT COUGHING. ORAL CARE AND SUCTIONING ARE GIVEN PRN. RECTAL TUBE HAS PUT OUT 300ML OF LIQUID DARK BROWM FLUID. CONDUM CATH IS IN PLACE, DRAINING PHILIP URINE. BED ALARM IS ON FOR SAFETY.
--- NOTE | 2020-11-29 10:21 | NUR ---
PT RESTING COMFORTABLY THIS AM, LETHARGIC, OPENS EYES AND ANSWERS QUESTIONS ALTHOUGH APPEARS TO FALL BACK ASLEEP EASILY. 1010 PT REPOSITIONED TO L SIDE, MEPILEX TO SACRUM CHANGED DUE TO SOILING FROM DRAINAGE, PT WINCED AND MOANED, ALTHOUGH HE DENIED HE WAS IN PAIN. WILL GIVE ROXONAL FOR DISCOMFORT.
--- NOTE | 2020-11-29 10:37 | NUR ---
Comfort Care Visit Pt resting in bed with his eyes closed. This RN did not disturb Pt at this time. Pt appears mildly dyspneic as evidenced by work of breathing. Primary RN Fazal will offer comfort medication. Palliative Care will remain available.
--- NOTE | 2020-11-29 18:36 | NUR ---
SHIFT SUMMARY. PT LETHARGIC, APPEARING TO SLEEP DURING MOST OF SHIFT. WOUND CARE PERFORMED TO SACRUM IT WAS SOILED WITH DRAINAGE. EXCORIATIONS TO BUTTOCKS CLEANSED AND CREAM APPLIED WITH EVERY OTHER Q2 TURN. ROXONOL GIVEN POST WOUND CARE. PT DENIED PAIN TILL REPOSITIONING. CONDOM CATHETER REPLACED THIS SHIFT. RECTAL TUBE STILL PATENT DRAINING LIQUID DARK STOOL. PT REQUESTING ICE WATER DURING SHIFT, GIVEN FOR COMFORT SMALL SIPS AT A TIME, ALTHOUGH IT DID APPEAR THAT PT WAS MOST LIKELY ASPIRATING HE WOULD COUGH WITH EACH DRINK. ORAL CARE COMPLETED TWICE THIS SHIFT. PO MEDS HELD FOR ASPIRATION PRECAUTIONS. PAIN MANAGED WELL WITH CURRENT ORDERS. NO DYSPNEA, NO N/V. NO OTHER CHANGES OR CONCERNS.
--- NOTE | 2020-11-29 19:34 | NUR ---
COMFORT: PATIENT IS RESTING IN BED WITH EYE'S CLOSED. NO S/S OF PAIN OR DISCOMFORT. TURNS HEAD AWAY WHEN MOUTH CARE IS ATTEMPTED. BED ALARM IS ON FOR SAFETY.
--- NOTE | 2020-11-29 21:13 | NUR ---
COMFORT: PATIENT CONTINUES TO REST WITH NO S/S OF PAIN OR DISCOMFORT. NO ORAL MEDICATIONS ARE GIVEN. NOT ALERT ENOUGH TO ATTEMPT ADMINISTRATION OF PILLS OR FLUIDS.
--- NOTE | 2020-11-29 23:52 | NUR ---
COMFORT: PATIENT IS MOANING, GRIMACING AND TENSE WITH T&P. PRN ROXANOL AND ATIVAN ARE GIVEN. IV SITE WAS FOUND DISLODGED. IV ACCESS IS LOST.
--- NOTE | 2020-11-30 00:23 | NUR ---
COMFORT: PATIENT IS RESTING QUIETLY WITH EYE'S CLOSED. RESPIRATIONS ARE EASY AT 14. PATIENT HAD GOOD EFFECT FROM ATIVAN AND ROXANOL.
--- NOTE | 2020-11-30 02:29 | NUR ---
COMFORT: PATIENT HAS HAD GOOD EFFECT FROM ATIVAN AND ROXANOL. RESTING IN BED WITH EYE'S CLOSED. NO S/S OF PAIN OR DISCOMFORT.
--- NOTE | 2020-11-30 04:03 | NUR ---
COMFORT: PATIENT SCORES A 5 ON FLACC SCALE AND IS RESTLESS. PRN ATIVAN AND ROXANOL ARE GIVEN WITH T&P AND PRAL CARE.
--- NOTE | 2020-11-30 06:08 | NUR ---
SHIFT SUMMARY: PATIENT HAS GOOD EFFECT FROM ROXANOL AND ATIVAN. T&P WAS GIVEN, PATIENT IS RESISTANT TO ORAL CARE, LIPS ARE MOISTURIZED. IV ACCESS WAS LOST AND BED ALARM IS ON FOR SAFETY
--- NOTE | 2020-11-30 11:33 | NUR ---
Pt resting in bed with his eyes closed upon arrival. Pt opens his eyes to gentle verbal stimuli but does not respond verbally. Pt appears comfortable with no S/S of distress at this time. Spoke with Primary RN Fazal and discussed case. Pt appears to be transitioning. Palliative Care will remain available for supportive visits and symptom management.
--- NOTE | 2020-11-30 18:08 | NUR ---
SHIFT SUMMARY. PT DOES NOT FULLY ARROUSE, MOANS WITH REPOSITIONING AND CARE. ROXONOL REQUIRMENTS FOR PAIN MANAGEMENT HAVE INCREASED TODAY, PAIN MANAGED WELL WITH CURRENT ORDERS. URINE OUTPUT WAS VERY LOW TODAY, APPROXIMATELY 75ML PER CONDOM CATHETER. RECTAL TUBE STILL PRODUCING LIQUID DARK STOOL, ALTHOUGH THAT OUTPUT HAS ALSO DECREASED SIGNIFICANTLY. DR. MATHEWTRATE OF PT'S DECLINE.
--- NOTE | 2020-11-30 21:09 | NUR ---
COMFORT: PATIENT SCORE A 5 ON FLACC SCALE. S/S OF PAIN WITH WOUND CARE AND T&P. ROXANOL 20 ML IS GIVEN.
--- NOTE | 2020-11-30 23:54 | NUR ---
COMFORT: PATIENT HAS HAD GOOD EFFECT FROM ROXANOL AND IS RESTING WITH EYE'S CLOSED. NO S/S OF PAIN OR DISCOMFORT.
--- NOTE | 2020-12-01 00:36 | NUR ---
COMFORT: PATIENT CONTINUES TO REST COMFORTABLY, NO S/S OF PAIN OR DISCOMFORT. BED ALARM IS ON FOR SAFETY.
--- NOTE | 2020-12-01 04:02 | NUR ---
COMFORT: PATIENT SCORES A 5 ON FLACC SCALE AND IS RESTLESS. MORPHINE AND ATIVAN ARE GIVEN.
--- NOTE | 2020-12-01 04:58 | NUR ---
COMFORT: PATIENT IS RESTING IN BED WITH EYE'S CLOSED. RESPIRATIONS ARE SHALLOW AT 18. PATIENT HAS HAD GOOD EFFECT FROM MORPHINE AND ATIVAN.
--- NOTE | 2020-12-01 06:38 | NUR ---
SHIFT SUMMARY: PATIENT IS RESTING WITH EYE'S CLOSED, CONTINUES TO HAVE GOOD EFFECT FROM ATIVAN AND MORPHINE. RECTAL TUBE HAS NO OUT PUT AND CONDUM CATH HAS MINIMAL. PATIENT IS UNRESPONSIVE AND ONLY MAONS OCCASSIONALLY. RESISTANT TO ORAL CARE. EMOTIONAL SUPPORT IS GIVEN.
--- NOTE | 2020-12-01 07:44 | NUR ---
Late entry for ethics consultation order facilitated telephonically on 11/29/20. Istr[employer] established contact, requesting clarification regarding the legally appropriate recourse for discontinuing or forgoing life sustaining therapies in the instance of the principal. Mr Toribio Robertson has unfortunately been confirmed by two provider attestation, to be in a terminal condition, whereby it is clinically improbable that ongoing or additional treatment will stabilize or improve his worsening state. Mr Robertson lacks a defualt or court appointed proxy, is medically incapacitated, and does not have an advance care planning instrument on record. It is documented that while his mentation was intact, he consistently refused care and was non-compliant with physician and support service recommendations. I adjudicated the facts of the case with the provider, and in accordance with the legistlative conditions stipulated in 127.635, namely subsection (3), it was decided that withholding heroic and life sustaining procedures, and making a hospice election on the principals behalf, would be ethically and morally responsible. Thank you for this consult. Taye Ortega Th.D.
--- NOTE | 2020-12-01 09:57 | NUR ---
PT TRANSFERED TO RM [id number] REPORT GIVEN TO DAVID PLUMMER
--- NOTE | 2020-12-01 12:39 | NUR ---
PATIENT AT 12:16 ON 12/01/20. DR. MARTE NOTIFIED IN PERSON. MIS SPECIALIST VERIFIED WITH THIS RN. PUPILS FIXED AND NON-REACTIVE. NO PULSE. NO BREATH SOUNDS.
== END 2020-12-01 12:20 | DRG 871 ==
LOC: ER 16:34 → MEDS 19:40
PROVIDERS: Emergency Medicine; Family Medicine; ADMIT Internal Medicine
DX: A41.9 Sepsis, unspecified organism (principal); E43 Unspecified severe protein-calorie malnutrition; G93.41 Metabolic encephalopathy; J69.0 Pneumonitis due to inhalation of food and vomit; R64 Cachexia; Z66 Do not resuscitate; Z51.5 Encounter for palliative care; N17.9 Acute kidney failure, unspecified; E87.2 Acidosis; F10.27 Alcohol dependence with alcohol-induced persisting dementia; N39.0 Urinary tract infection, site not specified; L89.152 Pressure ulcer of sacral region, stage 2; Z20.822 Contact with and (suspected) exposure to COVID-19; E86.0 Dehydration; E87.6 Hypokalemia; F10.20 Alcohol dependence, uncomplicated; R19.7 Diarrhea, unspecified; D69.6 Thrombocytopenia, unspecified; I10 Essential (primary) hypertension; I48.91 Unspecified atrial fibrillation; G62.9 Polyneuropathy, unspecified; K70.30 Alcoholic cirrhosis of liver without ascites; J44.9 Chronic obstructive pulmonary disease, unspecified; K21.9 Gastro-esophageal reflux disease without esophagitis; D63.8 Anemia in other chronic diseases classified elsewhere; F17.210 Nicotine dependence, cigarettes, uncomplicated; Z79.899 Other long term (current) drug therapy; Z98.890 Other specified postprocedural states; Z79.01 Long term (current) use of anticoagulants
CPT/HCPCS: 0097U; 31720; 36415; 71045; 80048; 80053; 81001; 82550; 82553; 83605; 83735; 84100; 84145; 84443; 84478; 84484; 85025; 87040; 87070; 87086; 87205; 92526; 92610; 93005; 93010; 94640; 94668; 94762; 97110; 97162; 97166; 97530; 99285-25; A9270; J0295; J3370; J3411; J3475; J7030; J7040; J7042; J7060; U0004